=== PATIENT | female | born 1940 | race Caucasian/White ===

== ENCOUNTER → 2017-03-27 | Day surgery (SDC) | payer BC ==
[2017-03-20 08:39] VITALS: Ht 162.6 cm; Wt 58.2 kg
[~2017-03-27] VITALS: Ht 162.6 cm; Wt 58.2 kg
[~2017-03-27] MED LIST: ASPEC81 PO; ATEN50TA8 PO; CALC600T9 PO; FLNIN/ NAE; LEVO200T PO; LEVO25TA PO; LIDOCAINE HCL 2% 2 ML VIAL (20MG/ML) ONE; MULT-506 PO; PHENYLEPHRINE HCL INJ 10 MG/ML VIAL ONE; POTA20TA16 PO; PRLSR20 PO; PROPOFOL IV EMULSION 10 MG/ML 20 ML VIAL IV ONE; SODIUM CHLORIDE 0.9% 500ML 500 ML IV ONE
--- NOTE | 2017-03-27 08:35 | Endo History and Physical ---
History & Physical Date of Service: Mar 27, 2017. Chief Complaint: Referring Physician: History of Present Illness 77 yo presenting for evaluation of weight loss and GERD. Possible distant family with colorectal cancer-grandfather Normal EGD 2014 Normal Colonoscopy 2013 Past Medical History Atrial Fibrillation, Osteoporosis, Arthritis, Reflux, Hypertension, Thyroid Disease Past Surgical History Hx Cardiac Surgery: No Hx Internal Defibrillator: No Hx Pacemaker: No Hx Abdominal Surgery: Yes (ABD CYSTECTOMY --> KNICKED BOWELS AND HAD COLON RESECTION WITH OSTOMY) Hx of Implantable Prosthesis: No Hx Post-Op Nausea and Vomiting: Yes Hx Cancer Surgery: No Hx Thoracic Surgery: No Hx Orthopedic: No Hx Urinary Tract Surgery: No Family History None Social History Smoking Status: Never Smoker Hx Substance Use: No Hx Alcohol Use: No Allergies Coded Allergies: Alendronate (Verified Allergy, Unknown, RASH, 03/20/17) Current Medications Reported Home Medications Medications Dose Route/Sig Max Daily Dose Days Date Category Dose Instructions Multivitamin (Multivitamins) Tab 1 Tab PO QAM 03/20/17 Reported Calcium + D (Calcium Carbonate-Vitamin D) 1 Tab Tab 1 Tab PO BID 03/20/17 Reported Prilosec (Omeprazole) 20 Mg Capcr 20 Mg PO QAM 03/20/17 Reported Synthroid (Levothyroxine Sodium) 25 Mcg Tab 12.5 Mcg PO QAM 09/08/14 Reported Take 200 mcg pill with 1/2 of a 25 mcg pill for total dose of 212.5 mcg. Synthroid (Levothyroxine Sodium) 200 Mcg Tab 200 Mcg PO QAM 09/08/14 Reported Take 200 mcg pill with 1/2 of a 25 mcg pill for total dose of 212.5 mcg. Fluticasone Propionate 120 Sprays/6000 Mcg Inha 1 [place] PETER QAM 09/08/14 Reported Ecotrin Or Generic * (Aspirin) 81 Mg Ectab 81 Mg PO 3-4XWK 04/15/07 Reported Klor-Con (Potassium Chloride) 20 Meq Tabcr 20 Meq PO QPM 04/15/07 Reported Tenormin (Atenolol) 50 Mg Tab 50 Mg PO QAM 04/15/07 Reported Vital Signs Weight (Kilograms): 58.18 Height (Feet): 5 Height (Inches): 4 Physical Exam General Appearance: WD/WN, no apparent distress Respiratory/Chest: Respiratory effort: no dyspnea Auscultation: breath sounds normal, CTA except as noted, no wheezing Cardiovascular: Apical Impulse: not displaced Heart Auscultation: RRR, normal S1, normal S2 Abdomen: Inspection & Palpation: soft, non-distended, no tenderness, guarding & rebound Assessment and Plan 77 yo presenting for EGD/Colonoscopy for weight loss and GERD
[2017-03-27 08:50] VITALS: TEMP 36.6
--- NOTE | 2017-03-27 10:41 | GI REPORT ---
Procedure Date: 03/27/2017 10:06 AM Procedure: Colonoscopy Indications: Weight loss Medicines: General Anesthesia Complications: No immediate complications. Estimated blood loss: None. Estimated Blood Loss: Estimated blood loss: none. Procedure: Pre-Anesthesia Assessment: - Pre-Anesthesia Assessment: - Prior to the procedure, a History and Physical was performed, and patient medications, allergies and sensitivities were reviewed. The patient's tolerance of previous anesthesia was reviewed. Please see [email or web address] for complete details. - The risks and benefits of the procedure and the sedation options and risks were discussed with the patient. All questions were answered and informed consent was obtained. - Patient identification and proposed procedure were verified prior to the procedure by the physician and the nurse. The procedure was verified in the pre-procedure area in the procedure room. After obtaining informed consent, the endoscope was passed carefully and meticuously under direct vision and only advanced when the lumen was clearly identified, C02 insuflation was utilized throughout the entirity of the procedure. Throughout the procedure, the patient's blood pressure, pulse, and oxygen saturations were monitored continuously. After I obtained informed consent, the scope was passed under direct vision. Throughout the procedure, the patient's blood pressure, pulse, and oxygen saturations were monitored continuously. The scope was introduced through the anus and advanced to the terminal ileum, with identification of the appendiceal orifice and IC valve. The colonoscopy was performed without difficulty. The patient tolerated the procedure well. The quality of the bowel preparation was fair. Findings: There was evidence of a prior end-to-side colo-colonic anastomosis in the sigmoid colon. This was patent. A 4 mm polyp was found in the transverse colon. The polyp was sessile. The polyp was removed with a cold snare. Resection and retrieval were complete. Multiple small-mouthed diverticula were found in the sigmoid colon and in the descending colon. Internal hemorrhoids were found during retroflexion. The exam was otherwise without abnormality on direct and retroflexion views. Impression: - Patent end-to-side colo-colonic anastomosis. - One 4 mm polyp in the transverse colon, removed with a cold snare. Resected and retrieved. - Diverticulosis in the sigmoid colon and in the descending colon. - Internal hemorrhoids. - The examination was otherwise normal on direct and retroflexion views. Recommendation: - Discharge patient to home (with escort). - Repeat colonoscopy in 5 years for surveillance. - Return to referring physician as previously scheduled. Quincy Pagan MD 03/27/2017 10:40:16 AM This report has been signed electronically. Note Initiated On: 03/27/2017 10:06 AM I attest to the content of the Intraoperative Record and orders documented therein, exceptions below
--- NOTE | 2017-03-27 10:41 | GI REPORT ---
Procedure Date: 03/27/2017 9:47 AM Procedure: Upper GI endoscopy Indications: Weight loss Medicines: General Anesthesia Complications: No immediate complications. Estimated blood loss: None. Estimated Blood Loss: Estimated blood loss: none. Procedure: Pre-Anesthesia Assessment: - Pre-Anesthesia Assessment: - Prior to the procedure, a History and Physical was performed, and patient medications, allergies and sensitivities were reviewed. The patient's tolerance of previous anesthesia was reviewed. Please see [email or web address] for complete details. - The risks and benefits of the procedure and the sedation options and risks were discussed with the patient. All questions were answered and informed consent was obtained. - Patient identification and proposed procedure were verified prior to the procedure by the physician and the nurse. The procedure was verified in the pre-procedure area in the procedure room. After obtaining informed consent, the endoscope was passed carefully and meticuously under direct vision and only advanced when the lumen was clearly identified, C02 insuflation was utilized throughout the entirity of the procedure. Throughout the procedure, the patient's blood pressure, pulse, and oxygen saturations were monitored continuously. After obtaining informed consent, the endoscope was passed under direct vision. Throughout the procedure, the patient's blood pressure, pulse, and oxygen saturations were monitored continuously. The scope was introduced through the mouth, and advanced to the second part of duodenum. The upper GI endoscopy was accomplished without difficulty. The patient tolerated the procedure well. Findings: A hiatus hernia was present. The entire examined stomach was normal. Biopsies were taken with a cold forceps for histology. The examined duodenum was normal. Biopsies for histology were taken with a cold forceps for evaluation of celiac disease. Impression: - Hiatus hernia. - Normal stomach. Biopsied. - Normal examined duodenum. Biopsied. Recommendation: - Await pathology results. - Discharge patient to home (with escort). - Return to referring physician as previously scheduled. Quincy Pagan MD 03/27/2017 10:41:10 AM This report has been signed electronically. Note Initiated On: 03/27/2017 9:47 AM I attest to the content of the Intraoperative Record and orders documented therein, exceptions below
--- NOTE | 2017-03-27 10:44 | Discharge Instructions ---
Endoscopy Patient Instructions Date / Procedure(s) Performed Mar 27, 2017. Colonoscopy, EGD Allergy Information Coded Allergies: Alendronate (Verified Allergy, Unknown, RASH, 03/20/17) Discharge Date / Findings Mar 27, 2017. Hiatal Hernia Normal stomach-biopsied Normal Small intestine-biopsied Colonoscopy revealed one polyp completely removed and benign appearing Internal hemorrhoids Diverticuli Provider Instructions Activity Restrictions - No exercising or heavy lifting for 24 hours. - Do not drink alcohol the day of the procedure. - Do not drive a car or operate machinery until the day after the procedure. - Do not make any important decisions or sign important papers in 24 hours after the procedure. Following Day: - Return to full activity which may include returning to work/school. Diet Start your diet with liquids and light foods (jello, soup, juice, toast). Then eat your usual diet if not nauseated. Treatment For Common After Affects For mild abdominal pain, bloating, or excessive gas: - Rest - Eat lightly - Lie on right side Follow-Up Information Follow-up with Dr. Bijan Barakat III as scheduled Anesthesia Information What You Should Know You have had a procedure that required some medicine to reduce anxiety and discomfort. This treatment is called moderate sedation. After receiving the treatment, you may be sleepy, but you will be able to breathe on your own. The effects of the treatment may last for several hours. Follow these instructions along with Activity/Diet recommendations noted above: * Do NOT do anything where dizziness or clumsiness would be dangerous. * Rest quietly at home today, then you can be up and about tomorrow. * Have a responsible person stay with you the rest of today. * You may have had an I.V. today. If so, you may take the dressing off later today. Recommendations Call your doctor if: * Trouble breathing * Continuous vomiting for more than 24 hours * Temperature above 101 degrees * Severe abdominal pain or bloating * Pain not relieved by pain medicine ordered * There is increased drainage or redness from any incision * A large amount of rectal bleeding greater than 2-3 tablespoons. (If you had a polyp/s removed or have hemorrhoids, a small amount of blood - from the rectum is to be expected.) * You have any unanswered questions or concerns. IN THE EVENT OF A SERIOUS EMERGENCY, GO TO THE NEAREST EMERGENCY ROOM Your discharge instructions were prepared by provider Quincy Pagan. Patient Instructions Signature Page Tia Khoury Patient (or Guardian) Signature/Date: I have read and understand the instructions given to me by my caregivers. Caregiver/RN/Doctor Signature/Date: The above-named patient and/or guardian has received patient instructions on this date. + Original Patient Signature Page (only) stays with chart. Please make copy for patient.
[2017-03-27 11:02] VITALS: BP 140/44; PULSE 56; O2SAT 99
--- NOTE | 2017-03-27 11:11 | Anesthesiology Progress Note ---
Anesthesia Post Op Note Date & Time Mar 27, 2017 at 11:11 Vital Signs Pain Intensity: 0 Vital Signs Past 12 Hours Date Time Temp Pulse Resp B/P (MAP) Pulse Ox O2 Delivery O2 Flow Rate FiO2 03/27/17 11:02 56 20 140/44 (76) 99 Room Air 03/27/17 10:48 54 20 96/81 (86) 98 Room Air 03/27/17 10:33 62 20 137/66 (89) 100 Room Air 03/27/17 08:50 36.6 45 16 132/55 (80) 100 Room Air Notes Mental Status: alert / awake / arousable, participated in evaluation Pt Amnestic to Procedure: Yes Nausea / Vomiting: adequately controlled Pain: adequately controlled Airway Patency, RR, SpO2: stable & adequate BP & HR: stable & adequate Hydration State: stable & adequate Anesthetic Complications: no major complications apparent
== END | disposition home or self-care (01) ==
LOC: C.GI 08:20
PROVIDERS: ATTEND Internal Medicine
DX: R63.4 Abnormal weight loss (principal); K21.9 Gastro-esophageal reflux disease without esophagitis; D12.3 Benign neoplasm of transverse colon; K64.8 Other hemorrhoids; K57.30 Diverticulosis of large intestine without perforation or abscess without bleeding; K44.9 Diaphragmatic hernia without obstruction or gangrene; I48.91 Unspecified atrial fibrillation; M81.0 Age-related osteoporosis without current pathological fracture; M19.90 Unspecified osteoarthritis, unspecified site; I10 Essential (primary) hypertension; Z90.49 Acquired absence of other specified parts of digestive tract; Z98.41 Cataract extraction status, right eye; Z98.42 Cataract extraction status, left eye; E03.9 Hypothyroidism, unspecified

== ENCOUNTER → 2017-04-05 | Outpatient (CLI) | payer BC ==
[~2017-04-05] MED LIST changes: +GADAVIST IV PRN; -LIDOCAINE HCL 2% 2 ML VIAL (20MG/ML) ONE; -PHENYLEPHRINE HCL INJ 10 MG/ML VIAL ONE; -PROPOFOL IV EMULSION 10 MG/ML 20 ML VIAL IV ONE; -SODIUM CHLORIDE 0.9% 500ML 500 ML IV ONE
--- NOTE | 2017-04-05 09:56 | DIAGNOSTIC IMAGING REPORT ---
ABDOMINAL MRI WITH AND WITHOUT INTRAVENOUS CONTRAST HISTORY: Follow-up hepatic lesion. IPMN TECHNIQUE: Multiplanar multisequence MRI of the abdomen was performed both before and after the intravenous administration of contrast to evaluate the pancreas. COMPARISON STUDY: Abdominal MRI 03/23/2016. FINDINGS: The gallbladder is surgically absent. Mild intrahepatic bile duct dilatation remains unchanged. Normal caliber common bile duct. The main pancreatic duct is also normal in caliber. Stable 8 mm cyst within the left hepatic lobe. There are few subcentimeter T2 hyperintense nonenhancing lesions within the kidneys consistent with cysts. No retroperitoneal lymphadenopathy. The spleen and adrenal glands are unremarkable. No enhancing pancreatic masses. There is again noted an 8 x 4 mm T2 hyperintense nonenhancing lesion at the uncinate process of the pancreas as described on the prior study. This appears to connect to the pancreatic duct. The slight size discrepancy is likely due to better visualization on this study and underestimation on the prior examination. This remains unchanged. S-shaped scoliosis of the thoracolumbar spine. IMPRESSION: 1. Overall, no significant change compared to the prior study 2. Hepatic and renal cysts are again noted. 3. There is again noted an 8 x 4 mm T2 hyperintense nonenhancing lesion at the uncinate process of the pancreas as described on the prior study. This appears to connect to the pancreatic duct. 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 4. The gallbladder is surgically absent. Mild intrahepatic bile duct dilatation remains unchanged. Electronically signed by: Colin Garcia M.D. 04/05/2017 9:55 AM Dictated Date/Time: 04/05/2017 9:46 AM
== END | disposition home or self-care (01) ==
LOC: C.MRI 08:08
PROVIDERS: ATTEND Nurse Practitioner Family
DX: D49.0 Neoplasm of unspecified behavior of digestive system (principal)

== ENCOUNTER → 2017-04-24 | Outpatient (CLI) | payer BC ==
[~2017-04-24] MED LIST changes: -GADAVIST IV PRN
--- NOTE | 2017-04-24 15:59 | DIAGNOSTIC IMAGING REPORT ---
CT SCAN OF THE ABDOMEN AND PELVIS WITH IV CONTRAST CLINICAL HISTORY: Unintentional weight loss. COMPARISON STUDY: Abdominal CT dated 01/21/2015. Abdominal MRI dated 04/05/2017. TECHNIQUE: Following the IV administration of 93 cc of Optiray 320, CT scan of the abdomen and pelvis is performed from the lung bases to the proximal femora. Images are reviewed in the axial, sagittal, and coronal planes. IV contrast was administered without complication. Automated dose control exposure was utilized. A dose lowering technique was utilized adhering to the principles of ALARA. CT DOSE: 236.23 mGy.cm FINDINGS: Lung bases: The heart is mildly enlarged and without pericardial effusion. The lung bases are clear. Liver: The contrast-enhanced liver is normal in size, contour, and attenuation. There is no intrahepatic biliary ductal dilatation. The hepatic veins and portal veins are patent. A 1.3 cm cyst is noted in the left lobe. Gallbladder: Surgically absent. Spleen: Normal in size and attenuation. Pancreas: Moderately atrophic and grossly unremarkable. The cystic lesion in the uncinate process seen by MRI was not well visualized on today's CT scan. Adrenal glands: Unremarkable. Kidneys: The contrast enhanced kidneys demonstrate mild cortical atrophy and are without hydronephrosis. The kidneys enhance symmetrically. Abdominal vasculature: The abdominal aorta is normal in course and caliber noting moderate atherosclerotic calcification. Bowel: The small bowel and colon are normal in course and caliber. The appendix is not identified and reported surgically absent. Peritoneum: There is no intraperitoneal free air or abdominal ascites. There is evidence of previous ventral hernia repair. Lymphadenopathy: None. Pelvic viscera: The bladder is normal as visualized. The endometrium appears thickened for age, measuring up to 12 mm. No adnexal lesion is seen. Skeletal structures: The skeletal structures are osteopenic. There is moderate lumbosacral spondylosis and scoliosis. No lytic or blastic lesions are seen. IMPRESSION: 1. There are no acute infectious or inflammatory findings in the abdomen or pelvis. 2. The endometrium appears thickened for age measure up to 12 mm. This is not well assessed by CT but warrants further workup. Follow-up with a pelvic ultrasound and with the patient's community development director is recommended. 3. Additional findings as above. Electronically signed by: Be Maza M.D. 04/24/2017 3:21 PM Dictated Date/Time: 04/24/2017 3:15 PM
== END | disposition home or self-care (01) ==
LOC: C.CTS 13:05
PROVIDERS: ATTEND Nurse Practitioner Family
DX: R63.4 Abnormal weight loss (principal)

== ENCOUNTER → 2017-05-02 | Outpatient (CLI) | payer BC ==
--- NOTE | 2017-05-02 12:09 | DIAGNOSTIC IMAGING REPORT ---
EXAMINATION: PELVIC ULTRASOUND (endovaginal and abdominal scanning) CLINICAL HISTORY: ABN FINDINGS ON IMAGING TEST ENDOMETRIAL THICKENING COMPARISON STUDY: CT scan dated 04/24/2017 FINDINGS: The study was limited from a technical standpoint. The patient was unable to tolerate optimal endovaginal scanning. The uterus measured 6.8 x 2.9 x 3.7 cm. The endometrial stripe measured 8 mm and appears slightly heterogeneous. A contain a few bright echoes possibly representing calcifications.. Neither ovary was visualized There was no evidence of pathologic free pelvic fluid. IMPRESSION: 1. Technically limited examination 2. Nonvisualization the ovaries 3. 8 mm slightly heterogeneous endometrial stripe Electronically signed by: Artur Hanley M.D. 05/02/2017 12:08 PM Dictated Date/Time: 05/02/2017 12:04 PM
== END | disposition home or self-care (01) ==
LOC: C.ULTR 11:18
PROVIDERS: ATTEND Nurse Practitioner Family
DX: R93.8 Abnormal findings on diagnostic imaging of other specified body structures (principal)

== ENCOUNTER → 2017-12-03 | Outpatient (CLI) | payer BC ==
[~2017-12-03] MED LIST changes: +POTA-639 PO; -POTA20TA16 PO
--- NOTE | 2017-12-03 15:21 | ECHOCARDIOGRAM REPORT ---
*NOTICE TO RECEIVING [employer] This information is strictly Confidential and protected under [place] law. [place] law prohibits you from making any further disclosure of this information unless further disclosure is expressly permitted by the written consent of the person to whom it pertains or is authorized by law. A general authorization for the release of medical or other information is not sufficient for this purpose. Hospital accepts no responsibility if the information is made available to any other person, INCLUDING THE PATIENT. Interpretation Summary * Name: KASEY DACOSTA Study Date: 12/03/2017 02:08 PM BP: 115/60 mmHg * Patient Location: [facility] HR: 65 * : 1940 (M/d/yyyy) Gender: Female Height: 64 in * Age: 77 yrs Ethnicity: [place] Weight: 125 lb * Ordering Physician: Bijan Barakat * Referring Physician: Bijan Barakat * Performed By: Veronica Finch RDCS * * Reason For Study: AFIB * BSA: 1.6 m2 * The study was technically adequate. * -- Conclusions -- * Sinus rhythm with frequent ectopy was present during the echocardiogram. * The left ventricular wall motion is normal. * Left ventricular ejection Fraction = 55-60%. * The right ventricle is normal size. * The right ventricular systolic function is normal as assessed by tricuspid annular plane systolic excursion (TAPSE) (normal >1.5 cm). * The right atrium is moderately dilated. * Mild aortic regurgitation. * There is mild mitral regurgitation. * There is moderate tricuspid regurgitation. * Mild pulmonary hypertension is present. The calculated pulmonary artery systolic pressure is 43 mmHg assuming a right atrial pressure of 3 mmHg. Procedure Details * A complete two-dimensional transthoracic echocardiogram was performed (2D, M-mode, Doppler and color flow Doppler). Left Ventricle * The left ventricle is normal in size. * There is normal left ventricular wall thickness. * Left ventricular systolic function is normal. * Ejection Fraction = 55-60%. * The left ventricular wall motion is normal. Right Ventricle * The right ventricle is normal size. * The right ventricular systolic function is normal as assessed by tricuspid annular plane systolic excursion (TAPSE) (normal >1.5 cm). Atria * The left atrial size is normal. * The right atrium is moderately dilated. * There is no evidence of atrial septal defect, but resolution does not allow assessment for a patent foramen ovale. Mitral Valve * Mitral valve leaflets are mildly thickened. * There is no mitral valve stenosis. * There is mild mitral regurgitation. Tricuspid Valve * The tricuspid valve is normal. * There is no tricuspid stenosis. * There is moderate tricuspid regurgitation. * Mild pulmonary hypertension is present. The calculated pulmonary artery systolic pressure is 43 mmHg assuming a right atrial pressure of 3 mmHg. Aortic Valve * The aortic valve is trileaflet. * Aortic stenosis is absent. * Mild aortic regurgitation. Pulmonic Valve * The pulmonary valve is inadequately visualized, but the Doppler data is adequate for interpretation. * Pulmonic stenosis is absent. * Mild pulmonic valvular regurgitation. Great Vessels * The aortic root and proximal ascending aorta are normal sized. Pericardium/Pleural * There is no pericardial effusion. Great Vessels * Normal inferior vena cava diameter and respiratory variation suggests normal central venous pressure. Left Ventricular Diastolic Function * Grade I diastolic dysfunction, (abnormal relaxation pattern). MMode 2D Measurements and Calculations IVSd 0.87 cm IVSs 1.2 cm LVIDd 5.1 cm LVIDs 3.4 cm LVPWd 0.98 cm LVPWs 1.5 cm IVS/LVPW 0.88 FS 32.1 % EDV(Teich) 122.1 ml ESV(Teich) 48.8 ml EF(Teich) 60.0 % EDV(cubed) 130.3 ml ESV(cubed) 40.7 ml EF(cubed) 68.7 % % IVS thick 39.8 % % LVPW thick 55.4 % LV mass(C)d 168.2 grams LV mass(C)dI 105.0 grams/m\S\2 LV mass(C)s 163.5 grams LV mass(C)sI 102.1 grams/m\S\2 SV(Teich) 73.2 ml SI(Teich) 45.7 ml/m\S\2 SV(cubed) 89.5 ml SI(cubed) 55.9 ml/m\S\2 Ao root diam 3.1 cm Ao root area 7.5 cm\S\2 LA dimension 3.3 cm LA/Ao 1.1 LVAd ap4 26.0 cm\S\2 LVLd ap4 8.0 cm EDV(MOD-sp4) 75.5 ml EDV(sp4-el) 72.0 ml LVAs ap4 16.4 cm\S\2 LVLs ap4 6.8 cm ESV(MOD-sp4) 37.6 ml ESV(sp4-el) 33.3 ml EF(MOD-sp4) 50.2 % EF(sp4-el) 53.8 % LVAd ap2 25.8 cm\S\2 LVLd ap2 7.8 cm EDV(MOD-sp2) 74.2 ml EDV(sp2-el) 72.1 ml LVAs ap2 16.2 cm\S\2 LVLs ap2 7.3 cm ESV(MOD-sp2) 33.4 ml ESV(sp2-el) 30.5 ml EF(MOD-sp2) 55.0 % EF(sp2-el) 57.8 % LVLd %diff -1.76 % EDV(MOD-bp) 76.1 ml LVLs %diff 6.2 % ESV(MOD-bp) 35.1 ml EF(MOD-bp) 53.8 % SV(MOD-sp4) 37.9 ml SI(MOD-sp4) 23.7 ml/m\S\2 SV(MOD-sp2) 40.8 ml SI(MOD-sp2) 25.5 ml/m\S\2 SV(MOD-bp) 40.9 ml SI(MOD-bp) 25.6 ml/m\S\2 SV(sp4-el) 38.7 ml SI(sp4-el) 24.2 ml/m\S\2 SV(sp2-el) 41.6 ml SI(sp2-el) 26.0 ml/m\S\2 Doppler Measurements and Calculations Ao V2 max 162.9 cm/sec Ao max PG 10.6 mmHg Ao max PG (full) 8.2 mmHg LV V1 max PG 2.4 mmHg LV V1 max 78.1 cm/sec TR max vanda 307.2 cm/sec
== END | disposition home or self-care (01) ==
LOC: C.CPL 13:33
PROVIDERS: ATTEND Family Medicine
DX: I48.0 Paroxysmal atrial fibrillation (principal); R00.0 Tachycardia, unspecified

== ENCOUNTER 2020-02-12 10:26 | Inpatient (IN) ==
[2020-02-12] MEDS ORDERED: ASPIRIN CHEW 324 MG PO STA (10:58)
[2020-02-12] MEDS ORDERED: SODIUM CHLORIDE 0.9% 1000ML 1,000 ML IV SCH (11:00)
--- NOTE | 2020-02-12 11:04 | Emergency Department Note ---
History of Present Illness General Chief complaint: Cardiac Assessment Stated complaint: CARDIAC ASSESSMENT, REF'D BY HUSSAIN Time Seen by Provider: 02/12/20 10:46 Source: patient, family ( who is at the bedside) and old records reviewed (I have reviewed the records and EKG that they sent over from Dr. Barakat's office) Mode of arrival: ambulatory Limitations: no limitations History of Present Illness Maximum Pain Intensity: 5 This patient is sent over from Dr. Barakat's office after she presented there with multiple complaints and was found to have rapid A. fib. She has been having a lot of pain in her shoulders and back lately she had some rashes on her torso and was diagnosed recent with Lyme. Apparently the testing just came back today for the prelim. She is not yet on antibiotics. She also has been having some intermittent chest pain and woke up this morning with this 5 or 6 out of 10 dull ache centrally. Denies shortness of breath or cough. She has been feeling hot and cold for couple weeks. She was seen here couple weeks ago and tested negative for COVID. She is had no fall or trauma. No focal numbness or weakness. She does have a history of paroxysmal A. fib and she does not seem to know how long she was in at this time. She denies that she is on any blood thinners. She did not take her atenolol this morning Home Medications Home Medications Medication Instructions Recorded Confirmed Type atenolol 25 mg PO QAM 01/24/20 02/12/20 History fluticasone propionate [Flonase 2 spray INTRANASAL HS 01/24/20 02/12/20 History Allergy Relief] ketoconazole 1 applic TOPICAL HS 01/24/20 02/12/20 History ketoconazole [Nizoral] 1 applic TOPICAL [id number] PRN 01/24/20 02/12/20 History levothyroxine 200 mcg PO SUTUWEFRSA 01/24/20 02/12/20 History multivitamin 1 tab PO QDL 01/24/20 02/12/20 History omeprazole 20 mg PO DAILY PRN 01/24/20 02/12/20 History potassium chloride 20 meq PO QAM 01/24/20 02/12/20 History Nutrilite Calcium Tablet 3 tab PO QAM 02/12/20 02/12/20 History ascorbic acid (vitamin C) [Vitamin 1,000 mg PO QAM 02/12/20 02/12/20 History C] cholecalciferol (vitamin D3) 25 mcg PO QAM 02/12/20 02/12/20 History [Vitamin D3] vitamin B complex 1 tab PO QAM 02/12/20 02/12/20 History Allergies Allergy/AdvReac Type Severity Reaction Status Date / Time alendronate sodium Allergy Unknown RASH Verified 02/12/20 11:29 Past Med/Surg History Medical History (Updated 02/12/20 @ 17:22 by Finn Regalado MD) GERD (gastroesophageal reflux disease) (Chronic) History of small bowel obstruction (Inactive) History of ventral hernia repair (Inactive) Hypertension (Chronic) Hypothyroidism (Chronic) PAF (paroxysmal atrial fibrillation) Small bowel obstruction (Inactive) Surgical History (Updated 02/12/20 @ 13:24 by Prachi Rowland PA-C) Status post appendectomy (Inactive) Status post cholecystectomy (Inactive) Status post hernia repair (Inactive) Status post partial colectomy (Inactive) "bowel perforation" Status post partial thyroidectomy (Inactive) Status post tonsillectomy (Inactive) Family History (Updated 02/12/20 @ 13:25 by Prachi Rowland PA-C) Father CHF (congestive heart failure) Mother CHF (congestive heart failure) Denies family history of Stroke Social History (Updated 02/12/20 @ 13:25 by Prachi Rowland PA-C) Preferred Language: [place]er Communication Ability: Effective Satellite Dish Repairer Required: No Beliefs That Will Affect Care: None marital status: Current Living Situation: Spouse Other Information That Helps Us Care for You: No Feels Safe at Home: Yes Safety Concerns: Feels Safe At This Time Smoking Status: Never smoker Hx Alcohol Use: No Hx Substance Use: No Review of Systems A total of 10 systems reviewed and were otherwise negative Physical Exam Vital Signs Vital Signs - 24 hr 02/12/20 10:33 02/12/20 10:58 02/12/20 11:10 Temperature 36.6 C Temperature Source Oral Pulse Rate 176 H 133 H Pulse Rate from SpO2 Sensor 127 H Respiratory Rate 20 22 Respiratory Effort / Characteristics Non-Labored Respiratory Depth Normal Blood Pressure 128/93 Blood Pressure Mean 98 Pulse Oximetry 97 99 Oxygen Delivery Method Room Air Room Air Room Air Sepsis Recent Fever Within 48 Hours No Sepsis Action Taken by Nursing No Action Required 02/12/20 11:15 02/12/20 11:31 02/12/20 11:47 Temperature Temperature Source Pulse Rate 99 H 103 H 111 H Pulse Rate from SpO2 Sensor 107 H 98 H 107 H Respiratory Rate 21 21 25 H Respiratory Effort / Characteristics Respiratory Depth Blood Pressure 139/76 124/73 138/64 Blood Pressure Mean 93 96 80 Pulse Oximetry 98 97 99 Oxygen Delivery Method Room Air Room Air Room Air Sepsis Recent Fever Within 48 Hours Sepsis Action Taken by Nursing 02/12/20 12:00 02/12/20 12:15 Temperature Temperature Source Pulse Rate 113 H 118 H Pulse Rate from SpO2 Sensor 109 H 117 H Respiratory Rate 24 23 Respiratory Effort / Characteristics Respiratory Depth Blood Pressure 143/85 H 130/93 Blood Pressure Mean 111 104 Pulse Oximetry 98 97 Oxygen Delivery Method Room Air Room Air Sepsis Recent Fever Within 48 Hours Sepsis Action Taken by Nursing General: Well developed well nourished not ill-appearing older female who appears in no acute distress, breathing comfortably on room air. Normal speech HEENT: Normal cephalic atraumatic. Pupils are equal round and reactive to light. Extraocular movements are intact. Oropharynx is pink with moist mucous membranes. No swelling of the mouth lips or tongue. Neck: Supple with a midline trachea. No meningeal signs or stiffness, no JVD or bruits. No Stridor. Chest: Clear to auscultation bilaterally. No wheezes or rhonchi. No increased work of breathing. Heart: Irregularly irregular with a rapid A. fib seen on the monitor in the rates averaging about 130. Without murmurs or gallops. Abdomen: Soft nontender, nondistended without rebound guarding or rigidity. Extremities: No cyanosis clubbing or edema. No calf tenderness or assymetry Spine/Back. Non tender to palpation. No CVA tenderness Skin: Good turgor. She does have some large circular type rashes on her back Neurologic exam: Cranial nerves two through 12 are intact. Motor and sensation are intact and symmetrical throughout. Course Administered Medications Heparin Sodium/Dextrose (Heparin Sodium/Dextrose) 25,000 units in 500 mls @ 20 mls/hr IV .Q24H [facility]; Protocol Stop: 03/13/20 12:44 Last Admin: 02/12/20 13:02 Dose: 1,000 units/hr, 20 mls/hr Documented by: [id number] Cosigned by: [id number] Discontinued Medications Aspirin (Aspirin) 324 mg PO NOW STA Stop: 02/12/20 10:59 Last Admin: 02/12/20 11:08 Dose: 324 mg Documented by: [id number] Aspirin (Ecotrin Ectab) 81 mg PO NOW STA Stop: 02/12/20 15:38 Last Admin: 02/12/20 16:10 Dose: 81 mg Documented by: [id number] Doxycycline Hyclate (Vibramycin) 100 mg PO NOW STA Stop: 02/12/20 15:38 Last Admin: 02/12/20 16:10 Dose: 100 mg Documented by: [id number] Heparin Sodium (Porcine) (Heparin Sodium (Porcine)) Confirm Administered Dose 5, 000 units .ROUTE .STK-MED ONE Stop: 02/12/20 12:58 Last Admin: 02/12/20 13:02 Dose: 4,000 units Documented by: [id number] Cosigned by: [id number] Sodium Chloride (Nss 1000ml) 1,000 mls @ 999 mls/hr IV .Q1H1M FILIBERTO Stop: 02/12/20 12:00 Last Infusion: 02/12/20 12:13 Dose: 0 mls/hr Documented by: [id number] Admin: 02/12/20 11:08 Dose: 999 mls/hr Documented by: [id number] Metoprolol Tartrate (Lopressor) 3 mg IV NOW STA Stop: 02/12/20 11:06 Last Admin: 02/12/20 11:12 Dose: 3 mg Documented by: [id number] Metoprolol Tartrate (Lopressor) 12.5 mg PO ONE STA Stop: 02/12/20 12:34 Last Admin: 02/12/20 12:53 Dose: 12.5 mg Documented by: [id number] Medical Decision Making Differential Diagnosis Rapid A. fib, electrolyte or metabolic abnormality, thyroid disease, Lyme disease, sepsis, dehydration, acute coronary syndrome Medical Records Attestation: I reviewed the patient's medical records. Home Medications Current Medication List: was personally reviewed by me Laboratory Data Attestation: I reviewed the patient's lab results. Result diagrams: 02/12/20 10:45 02/12/20 10:45 Lab Results 02/12/20 02/12/20 02/12/20 Range/Units 10:45 10:45 10:45 WBC 11.79 H (4.8-10.8) K/uL RBC 4.29 (4.2-5.4) M/uL Hgb 13.2 (12.0-16.0) g/dL Hct 39.8 (37-47) % MCV 92.8 (80-100) fL MCH 30.8 (25-34) pg MCHC 33.2 (32-36) g/dL RDW Std Deviation 44.8 (36.4-46.3) fL RDW Coeff of Carter 13.2 (11.5-14.5) % Plt Count 241 (130-400) K/uL MPV 9.5 (7.4-10.4) fL Immature Gran % (Auto) 0.2 % Neut % (Auto) 82.4 % Lymph % (Auto) 10.6 % Maury % (Auto) 6.3 % Eos % (Auto) 0.2 % Baso % (Auto) 0.3 % Neut # (Auto) 9.73 H (1.4-6.5) K/uL Lymph # (Auto) 1.25 (1.2-3.4) K/uL Maury # (Auto) 0.74 H (0.11-0.59) K/uL Eos # (Auto) 0.02 (0-0.5) K/uL Baso # (Auto) 0.03 (0-0.2) K/uL Immature Gran # (Auto) 0.02 (0.00-0.02) K/uL PT 11.0 (9.0-12.0) Seconds INR 1.0 (0.9-1.1) APTT 29.3 (21.0-31.0) Seconds PTT Ratio 1.1 D-Dimer (0-500) ug/L FEU Sodium 137 (136-145) mmol/L Potassium 4.3 (3.5-5.1) mmol/L Chloride 103 (98-107) mmol/L Carbon Dioxide 28 (21-32) mmol/L Anion Gap 6.0 (3-11) BUN 14 (7-18) mg/dl Creatinine 0.82 (0.6-1.2) mg/dl Est Cr Clr Drug Dosing 47.3 ml/min Est GFR ( Amer) 78.3 Est GFR (Non-Af Amer) 67.6 BUN/Creatinine Ratio 17.4 (10-20) Glucose 112 H (70-99) mg/dl Calcium 8.7 (8.5-10.1) mg/dl Magnesium (1.8-2.4) mg/dl Total Bilirubin 0.8 (0.2-1) mg/dl AST 21 (15-37) U/L ALT 26 (12-78) U/L Alkaline Phosphatase 77 (45-117) U/L Troponin I < 0.015 (0-0.045) ng/ml Total Protein 7.3 (6.4-8.2) gm/dl Albumin 3.1 L (3.4-5.0) gm/dl Globulin 4.2 H (2.5-4.0) gm/dl Albumin/Globulin Ratio 0.7 L (0.9-2) Lipase 136 (73-393) U/L TSH (0.300-4.500) uIu/ml 02/12/20 02/12/20 02/12/20 Range/Units 10:45 10:45 10:45 WBC (4.8-10.8) K/uL RBC (4.2-5.4) M/uL Hgb (12.0-16.0) g/dL Hct (37-47) % MCV (80-100) fL MCH (25-34) pg MCHC (32-36) g/dL RDW Std Deviation (36.4-46.3) fL RDW Coeff of Carter (11.5-14.5) % Plt Count (130-400) K/uL MPV (7.4-10.4) fL Immature Gran % (Auto) % Neut % (Auto) % Lymph % (Auto) % Maury % (Auto) % Eos % (Auto) % Baso % (Auto) % Neut # (Auto) (1.4-6.5) K/uL Lymph # (Auto) (1.2-3.4) K/uL Maury # (Auto) (0.11-0.59) K/uL Eos # (Auto) (0-0.5) K/uL Baso # (Auto) (0-0.2) K/uL Immature Gran # (Auto) (0.00-0.02) K/uL PT (9.0-12.0) Seconds INR (0.9-1.1) APTT (21.0-31.0) Seconds PTT Ratio D-Dimer 2950 H* (0-500) ug/L FEU Sodium (136-145) mmol/L Potassium (3.5-5.1) mmol/L Chloride (98-107) mmol/L Carbon Dioxide (21-32) mmol/L Anion Gap (3-11) BUN (7-18) mg/dl Creatinine (0.6-1.2) mg/dl Est Cr Clr Drug Dosing ml/min Est GFR ( Amer) Est GFR (Non-Af Amer) BUN/Creatinine Ratio (10-20) Glucose (70-99) mg/dl Calcium (8.5-10.1) mg/dl Magnesium 2.1 Cancelled (1.8-2.4) mg/dl Total Bilirubin (0.2-1) mg/dl AST (15-37) U/L ALT (12-78) U/L Alkaline Phosphatase (45-117) U/L Troponin I (0-0.045) ng/ml Total Protein (6.4-8.2) gm/dl Albumin (3.4-5.0) gm/dl Globulin (2.5-4.0) gm/dl Albumin/Globulin Ratio (0.9-2) Lipase (73-393) U/L TSH 2.120 (0.300-4.500) uIu/ml Imaging Data My Impression: Chest xray: no acute infilrate, failure, or pneumothorax Radiologist's Impression: XR chest 1V portable HISTORY: Atypical Chest Pain COMPARISON: Chest 01/24/2020. FINDINGS: The heart remains mildly enlarged. No pleural effusions. No pneumothorax. The lungs are clear. No evidence for pulmonary edema. Mild S- shaped scoliosis. IMPRESSION: Stable mild cardiomegaly. ECG Data Attestation: I personally reviewed and interpreted this ECG as follows: Indication: + chest pain Rate (beats per minute): 132 Rhythm: + atrial fibrillation (Rapid A. fib with a rapid ventricular spots and rate of 132) ECG Wayne: + Right axis deviation ECG ST segments: + Nonspecific ST abnormalities ECG Findings: + Poor R wave progression; no PACs Comparison ECG Date: from Blood Pressure Blood Pressure Findings: Elevated blood pressure Blood Pressure Disposition: further management by hospitalist MDM Narrative Patient comes in as scribed above she is a chest pain and rapid A. fib she is also had possible Lyme disease recently. IV axis tablet she was hydrated 1 L normal saline bolus. Her rate was initially moderately rapid. I did did review her chart and then gave her Lopressor 3 mg IV. Multiple blood testing was obtained and EKG and chest x-ray were obtained. EKG does not show any ischemic changes. She was given aspirin chewable. Additionally once she did well with Lopressor and her heart rate was in the low 100s. Her troponin is negative. She has no acute electrolyte or metabolic abnormalities. Chest x-ray does not suggest congestive heart failure, pneumonia, or pneumothorax. Given her rapid A. fib, I do think she needs to be admitted/observedand it sounds like she may also have Lyme disease which may need to be further treated as well. Have consulted with the [facility] hospitalist to see her ER for these measures. Continuous cardiac monitoring: Order was placed for continuous cardiac mo nitoring this was done because the patient had a rapid heart rate and chest pain. On my initial evaluation she was noted to be in rapid A. fib with a rate of 130 Impression & Plan Atrial fibrillation with rapid ventricular response, Lyme disease, Chest pain, SOB (shortness of breath) Discharge Plan Visit Data *Final* Discharge Date/Time: 02/12/20 15:07 Chief Complaint: Cardiac Assessment Stated Complaint: CARDIAC ASSESSMENT, REF'D BY HUSSAIN ED Provider: Finn Regalado Discharge Problem: Atrial fibrillation with rapid ventricular response, Lyme disease, Chest pain, SOB (shortness of breath) Patient Disposition: Admitted As Inpatient Discharge Instructions Interventions: ED Discharge Assessment Last Done: 02/12/20 15:07 Discharge Problem: Chest pain Qualifiers: Chest pain type: precordial pain Qualified Code(s): R07.2 - Precordial pain
[2020-02-12] MEDS ORDERED: METOPROLOL TARTRATE 1 MG/ML VIAL IV STA ×2 (11:05→20:15)
--- NOTE | 2020-02-12 11:26 | XRay Report ---
XR chest 1V portable HISTORY: Atypical Chest Pain COMPARISON: Chest 01/24/2020. FINDINGS: The heart remains mildly enlarged. No pleural effusions. No pneumothorax. The lungs are meghna ar. No evidence for pulmonary edema. Mild S-shaped scoliosis. IMPRESSION: Stable mild cardiomegaly. ACT 112: Negative or not required by law. Electronically signed by: Colin Garcia M.D. 02/12/2020 11:24 AM
[2020-02-12 11:32] LABS: Basophils # (auto) 0.03 K/uL (0-0.2); Basophils % (auto) 0.3 %; Eosinophils # (auto) 0.02 K/uL (0-0.5); Eosinophils % (auto) 0.2 %; Hematocrit (blood only) 39.8 % (37-47); Hemoglobin 13.2 g/dL (12.0-16.0); Immature Granulocytes # (auto) 0.02 K/uL (0.00-0.02); Immature Granulocytes % (auto) 0.2 %; Lymphocytes # (auto) 1.25 K/uL (1.2-3.4); Lymphocytes % (auto) 10.6 %; Mean Corpuscular Hemoglobin 30.8 pg (25-34); Mean Corpuscular Hgb Conc 33.2 g/dL (32-36); Mean Corpuscular Volume 92.8 fL (80-100); Mean Platelet Volume 9.5 fL (7.4-10.4); Monocytes # (auto) 0.74 K/uL (0.11-0.59); Monocytes % (auto) 6.3 %; Neutrophils # (auto) 9.73 K/uL (1.4-6.5); Neutrophils % (auto) 82.4 %; Platelet Count 241 K/uL (130-400); RDW Coefficient of Variation 13.2 % (11.5-14.5); RDW Standard Deviation 44.8 fL (36.4-46.3); Red Blood Count 4.29 M/uL (4.2-5.4); White Blood Count 11.79 K/uL (4.8-10.8)
[2020-02-12 11:43] LABS: Alanine Aminotransferase 26 U/L (12-78); Albumin Level 3.1 gm/dl (3.4-5.0); Aspartate Aminotransferase 21 U/L (15-37); BUN Creatinine Ratio 17.4 (10-20); Blood Urea Nitrogen 14 mg/dl (7-18); Calcium 8.7 mg/dl (8.5-10.1); Carbon Dioxide 28 mmol/L (21-32); Chloride 103 mmol/L (98-107); Creatinine Clr Calc Pharmacy 47.3 ml/min; Est GFR (African American) 78.3; Est GFR (Non-African American) 67.6; Glucose 112 mg/dl (70-99); Lipase 136 U/L (73-393); Potassium 4.3 mmol/L (3.5-5.1); Sodium 137 mmol/L (136-145)
[2020-02-12 11:44] LABS: Partial Thromboplastin Ratio 1.1; Partial Thromboplastin Time 29.3 Seconds (21.0-31.0)
[2020-02-12 11:49] LABS: Albumin Globulin Ratio 0.7 (0.9-2); Alkaline Phosphatase 77 U/L (45-117); Bilirubin,Total 0.8 mg/dl (0.2-1); Globulin 4.2 gm/dl (2.5-4.0); Total Protein 7.3 gm/dl (6.4-8.2); Troponin I < 0.015 ng/ml (0-0.045)
[2020-02-12] MEDS ORDERED: METOPROLOL TARTRATE 25 MG TAB PO STA (12:33)
[2020-02-12] MEDS ORDERED: HEPARIN SOD 5,000 UNIT/0.5 ML VIAL ONE (12:57)
--- NOTE | 2020-02-12 12:59 | History & Physical Report ---
Date of Service February 12, 2020 Assessment & Plan (1) Atrial fibrillation with RVR: (2) Elevated d-dimer: This is an 79-year-old female who has significant past medical history of PAF, hypothyroidism, hyperlipidemia who is a patient of Dr. Barakat and presents to ED at his referral secondary to A. fib with RVR. In ED patient was in atrial fibrillation with RVR. I do not have an ecg to review at this time. Lab work revealed WBC 11.79, H&H 13.2 and 39.8, platelet 2.1, BMP generally unremarkable except for mild hyperglycemia 112 TSH 2.2, troponin WNL. D-dimer ordered and elevated at 2950. Chest x-ray revealed stable mild cardiomegaly, mild scoliosis In ED she received Lopressor 2.5 mg IV which did improve rates into the low 100s. admit to PCU initiate lopressor 12.5mg bid - titrate as able hold home atenolol Start IV heparin -discussed risk vs benefits - no hx of bleeding [id number] - 3 consult cardiology obtain echocardiogram TSH, Lytes all WNL given elevated dimer obtain CTA chest, b/l dopplers to rule out PE/DVT as cause of afib (3) Lyme disease: pt with reports of ill feeling x 2 weeks, arthralgias, reported "bulls eye" rash that has been waxing and waning tested outpt 02/10 Initial Lyme IgG/IgM antibody greater than 12.4 which resulted in a positive test, Western blot is pending Given above symptoms treat empirically with doxycycline 100 mg twice daily for 14 days Review western blot results in [facility] when resulted (4) Hypothyroidism: Continue levothyroxine TSH WNL (5) GERD (gastroesophageal reflux disease): PPI prn (6) DVT prophylaxis: IV heparin started Disposition: admit to PCU Follow up: PCP Dr. Barakat upon discharge Pt was seen and examined in collaboration with Dr. Huff, please see addendum Starting 02/13/2020 pt will be under the care of Dr. De La Torre History of Present Illness Chief Complaint: Referred by PCP secondary to atrial fibrillation with RVR. Primary Care Provider: Bijan Barakat MD This is an 79-year-old female who has significant past medical history of PAF, hypothyroidism, hyperlipidemia who is a patient of Dr. Barakat and presents to ED at his referral secondary to A. fib with RVR. She was seen and evaluated in the office today for an acute visit due to continued ill feeling when she was noted to be in A. fib with RVR. She was referred to ED for further evaluation. Of significance patient has been ill feeling for the past 2 weeks. Symptoms initially started as Flulike symptoms including pharyngitis. She was seen in ED at that time and was tested for COVID which was negative. She continued to feel poorly and was seen and evaluated by PCP. It was felt she just had a viral illness. She then developed circular like red rashes that were, "bull's-eye in appearance." She looked them up online and thought it may have been Lyme's.She denies any known tick bite. She underwent Lyme serology yesterday. She further complains of fatigue, arthralgias including shoulder pain, "my whole spine hurts," and myalgias. She denies any fever. Further elicits that she was awoken this morning with substernal chest pressure, 5/10, nonradiating, not associated with diaphoresis, nausea or shortness of breath. Has never had similar symptoms in the past. This has since resolved. Of significance she does have history of PAF back in 2005 when she was hospitalized with significant abdominal surgery. She had been treated with atenolol and has not been anticoagulated. Currently she denies any fever, chills, sweats, lightheadedness, dizziness, syncope, shortness of breath, orthopnea, PND, cough, hemoptysis,, vomiting, abdominal pain, change in bowel or urinary habits. Her appetite is overall been decreased. She has not taken any of her meds this morning. In ED patient was in atrial fibrillation with RVR. I do not have an ecg to review at this time. Lab work revealed WBC 11.79, H&H 13.2 and 39.8, platelet 2.1, BMP generally unremarkable except for mild hyperglycemia 112 TSH 2.2, troponin WNL. D-dimer ordered and elevated at 2950. Chest x-ray revealed stable mild cardiomegaly, mild scoliosis In ED she received Lopressor 2.5 mg IV which did improve rates into the low 100s. Allergies Allergy/AdvReac Type Severity Reaction Status Date / Time alendronate sodium Allergy Unknown RASH Verified 02/12/20 11:29 Home Medications Home Medications Medication Instructions Recorded Confirmed Type atenolol 25 mg PO QAM 01/24/20 02/12/20 History fluticasone propionate [Flonase 2 spray INTRANASAL HS 01/24/20 02/12/20 History Allergy Relief] ketoconazole 1 applic TOPICAL HS 01/24/20 02/12/20 History ketoconazole [Nizoral] 1 applic TOPICAL [id number] PRN 01/24/20 02/12/20 History levothyroxine 200 mcg PO SUTUWEFRSA 01/24/20 02/12/20 History multivitamin 1 tab PO QDL 01/24/20 02/12/20 History omeprazole 20 mg PO DAILY PRN 01/24/20 02/12/20 History potassium chloride 20 meq PO QAM 01/24/20 02/12/20 History Nutrilite Calcium Tablet 3 tab PO QAM 02/12/20 02/12/20 History ascorbic acid (vitamin C) [Vitamin 1,000 mg PO QAM 02/12/20 02/12/20 History C] cholecalciferol (vitamin D3) 25 mcg PO QAM 02/12/20 02/12/20 History [Vitamin D3] vitamin B complex 1 tab PO QAM 02/12/20 02/12/20 History Past Med/Surg History Medical History GERD (gastroesophageal reflux disease) (Chronic) History of small bowel obstruction (Inactive) History of ventral hernia repair (Inactive) Hypertension (Chronic) Hypothyroidism (Chronic) PAF (paroxysmal atrial fibrillation) Small bowel obstruction (Inactive) Surgical History Status post appendectomy (Inactive) Status post cholecystectomy (Inactive) Status post hernia repair (Inactive) Status post partial colectomy (Inactive) "bowel perforation" Status post partial thyroidectomy (Inactive) Status post tonsillectomy (Inactive) Family History Father CHF (congestive heart failure) Mother CHF (congestive heart failure) Denies family history of Stroke Social History Preferred Language: Frisian Communication Ability: Effective Cigarette Book Maker Required: No Beliefs That Will Affect Care: None marital status: Current Living Situation: Spouse Other Information That Helps Us Care for You: No Feels Safe at Home: Yes Safety Concerns: Feels Safe At This Time Smoking Status: Never smoker Hx Alcohol Use: No Hx Substance Use: No Review of Systems Review of Systems: All systems reviewed & are unremarkable except as noted in HPI & below Nothing additional to add. Physical Exam Physical Exam: Constitutional: WD/WN, appears younger than stated age, female, vitals as above, NAD, sitting up in bed, pleasant, conversing easily Head: Normocephalic, Atraumatic Eyes: PERRL, conjunctivae normal, anicteric sclerae ENMT: external ear and nose normal, oropharynx normal Neck: trachea midline, no thyromegaly normal visual inspection Respiratory: normal respiratory effort, lungs clear to auscultation, no wheeze, rales, rhonchi. Normal insp/exp effort, no accessory muscle use Cardiovascular: Irregularly irregular, no murmur, no edema Vessels: no JVD or carotid bruit Chest: normal inspection of chest Abdomen: normal bowel sounds, soft, nontender, no hepatosplenomegaly Musculoskeletal: + Thoracic scoliosis, no cyanosis or clubbing, extremities motor strength 5/5 Skin: Right antecubital faint bull's-eye rash noted, warm and dry normal turgor Neurologic: PERRL, EOMI, accommodation nl, no face palsy, no dysarthria CN's II-XI intact bilaterally and moves all extremities Psychiatric: A+Ox3, euthymic affect Lymphatic: no cervical or axillary lymphadenopathy : deferred Results & Data Results & Data ([facility]) Vital Signs (Past 12 Hours) Vital Signs Temp Pulse Resp BP Pulse Ox 02/12/20 12:15 118 H 23 130/93 97 02/12/20 12:00 113 H 24 143/85 H 98 02/12/20 11:47 111 H 25 H 138/64 99 02/12/20 11:31 103 H 21 124/73 97 02/12/20 11:15 99 H 21 139/76 98 02/12/20 11:10 133 H 22 128/93 99 02/12/20 10:33 36.6 C 176 H 20 97 Laboratory Results Short CBC 02/12/20 Range/Units 10:45 WBC 11.79 H (4.8-10.8) K/uL Hgb 13.2 (12.0-16.0) g/dL Hct 39.8 (37-47) % Plt Count 241 (130-400) K/uL BMP 02/12/20 10:45 Sodium 137 Potassium 4.3 Chloride 103 Carbon Dioxide 28 BUN 14 Creatinine 0.82 Glucose 112 H Calcium 8.7 Cardiac Enzymes 02/12/20 Range/Units 10:45 Troponin I < 0.015 (0-0.045) ng/ml Liver Function 02/12/20 Range/Units 10:45 Total Bilirubin 0.8 (0.2-1) mg/dl AST 21 (15-37) U/L ALT 26 (12-78) U/L Alkaline Phosphatase 77 (45-117) U/L Albumin 3.1 L (3.4-5.0) gm/dl Diagnostic Findings CXR: IMPRESSION: Stable mild cardiomegaly. Medications Administered Heparin Sodium/Dextrose (Heparin Sodium/Dextrose) 25,000 units in 500 mls @ 20 mls/hr IV .Q24H [facility]; Protocol Stop: 03/13/20 12:44 Last Admin: 02/12/20 13:02 Dose: 1,000 units/hr, 20 mls/hr Documented by: [id number] Cosigned by: [id number] Discontinued Medications Aspirin (Aspirin) 324 mg PO NOW STA Stop: 02/12/20 10:59 Last Admin: 02/12/20 11:08 Dose: 324 mg Documented by: [id number] Heparin Sodium (Porcine) (Heparin Sodium (Porcine)) Confirm Administered Dose 5,000 units .ROUTE .STK-MED ONE Stop: 02/12/20 12:58 Last Admin: 02/12/20 13:02 Dose: 4,000 units Documented by: [id number] Cosigned by: [id number] Sodium Chloride (Nss 1000ml) 1,000 mls @ 999 mls/hr IV .Q1H1M FILIBERTO Stop: 02/12/20 12:00 Last Infusion: 02/12/20 12:13 Dose: 0 mls/hr Documented by: [id number] Admin: 02/12/20 11:08 Dose: 999 mls/hr Documented by: [id number] Metoprolol Tartrate (Lopressor) 3 mg IV NOW STA Stop: 02/12/20 11:06 Last Admin: 02/12/20 11:12 Dose: 3 mg Documented by: [id number] Metoprolol Tartrate (Lopressor) 12.5 mg PO ONE STA Stop: 02/12/20 12:34 Last Admin: 02/12/20 12:53 Dose: 12.5 mg Documented by: ECG Rhythm: atrial fibrillation Code Status & VTE Plan Code Status Full Code VTE Prophylaxis Plan VTE Prophylaxis will be ordered: Yes Supervising Physician Co-Signing Physician Notes ATTENDING ADDENDUM : pt seen and examined care co-ordinated with Prachi SANCHEZ 79 yo F admitted with rapid afib RVR had non specific symptoms for past several days -increased weakness , lathergy SOB , SARGENT lyme ab positive with recent tick bite /rash present in extremities Afib RVR : paroxysmal , was not any meds as last episode was 7 yrs back briefly post procedure cont rate control with beta david started on lopressor 12.5 mg BID admit to PCU unknown duration of afib , ordered IV heparin wt based protocol cardiology eval ordered for resting ECHO Lyme disease : started on PO Doxycycline please refer to further documentaion by Prachi Cheney PA-C for discussion of other chronic issue Sherrie Huff MD
[2020-02-12] MEDS: HEPARIN SODIUM/DEXTROSE 25,000 UNITS/500 ML BAG IV SCH (13:02)
[2020-02-12 13:08] LABS: Thyroid Stimulating Hormone 2.12 uIu/ml (0.300-4.500)
[2020-02-12 13:10] LABS: Magnesium 2.1 mg/dl (1.8-2.4)
[2020-02-12 13:18] LABS: D Dimer 2950 ug/L FEU (0-500)
[2020-02-12] MEDS ORDERED: OPTIRAY 320 125ml IV PRN (14:00)
--- NOTE | 2020-02-12 14:12 | CT Scan Report ---
CT ANGIOGRAM OF THE CHEST CLINICAL HISTORY: Atypical chest pain and shortness of breath. Possible pulmonary embolism. COMPARISON STUDY: Chest x-ray dated 02/12/2020, abdominal CT scan performed August 2018 TECHNIQUE: Following the IV administration of 119 mL of Optiray-320, CT angiogram of the thorax was p erformed from the thoracic inlet to the lung bases utilizing the pulmonary embolus protocol. Images a re reviewed in the axial, sagittal, and coronal planes. IV contrast was administered without complica tion. MIP imaging was performed. A dose lowering technique was utilized adhering to the principles o f ALARA. CT DOSE: 355.54 mGy.cm FINDINGS: There is a stable 14 mm left lobe hepatic hypodensity, likely representing a cyst. There are no pathologically enlarged axillary, mediastinal, or hilar lymph nodes. There is no evidence of thoracic aortic aneurysm. There are no pulmonary artery filling defects to indicate acute pulmonary embolism. There is trace pleural fluid. There is no evidence of focal pulmonary consolidation. There is mild respiratory motion artifact. The heart is enlarged. There is a solid subpleural 5 mm right middle lobe pulmonary nodule. In a low-risk patient, no furthe r follow-up is indicated. In a high-risk patient, a 12 month follow-up is optional. IMPRESSION: 1. No evidence of acute pulmonary embolism 2. No evidence of focal pulmonary consolidation 3. Subpleural 5 mm right middle lobe pulmonary nodule. Please refer to below summary of Fleischner criteria recommendations for follow-up of incidental CT n odules (Mayra Reese, Guidelines for management of small pulmonary nodules detected on CT scans: A sta tement from the Fleischner Society, Radiology 237: [phone].) SOLID NODULES Solitary nodule size: <6 mm * low risk patients: no follow-up needed * high risk patients: optional CT at 12 months Solitary nodule size: 6-8 mm * low risk patients: follow-up at 6-12 months, then consider further follow-up at 18-24 months * high risk patients: initial follow-up CT at 6-12 months and then at 18-24 months if no change Solitary nodule size: >8 mm * either low or high risk patients - consider follow-up CT at 3 months, and/or CT-PET, and/or biopsy Multiple nodules size: <6 mm * low risk patients: no routine follow-up * high risk patients: optional CT at 12 months Multiple nodules size: 6-8 mm * low risk patients: follow-up at 3-6 months, then consider further follow-up at 18-24 months * high risk patients: follow-up at 3-6 months, then at 18-24 months if no change Multiple nodules size: >8 mm * low risk patients: follow-up at 3-6 months, then consider further follow-up at 18-24 months * high risk patients: follow-up at 3-6 months, then at 18-24 months if no change Note: newly detected indeterminate nodule in persons 35 years of age or older. * low risk patients: minimal or absent history of smoking and/or other known risk factors * high risk patients: history of smoking or of other known risk factors (e.g. first degree relative with lung cancer, or exposure to asbestos, radon, uranium) * if a nodule up to 8 mm is partly solid or is ground glass further follow-up is required after 24 m onths to exclude possible slow growing adenocarcinoma (FANY) SUBSOLID NODULES Solitary pure ground-glass nodule * nodule size <6 mm - no CT follow-up required * nodule size >=6 mm - follow-up CT at 6-12 months, then every 2 years until 5 years Solitary part-solid nodule * nodule size <6 mm - no CT follow-up required * nodule size >=6 mm - follow-up CT at 3-6 months. If unchanged, and solid component remains <6 mm, then annual follow-up for 5 years Multiple subsolid nodules * nodule size <6 mm - follow-up CT at 3-6 months, consider further follow-up at 2 and 4 years if sta ble * nodule size >=6 mm - follow-up CT at 3-6 months, subsequent management based on the most suspiciou s nodule(s) ACT 112: Negative or not required by law. Electronically signed by: Artur Hanley M.D. 02/12/2020 2:10 PM
[2020-02-12] MEDS ORDERED: HEPARIN SODIUM/DEXTROSE 25,000 UNITS/500 ML BAG IV SCH (15:31)
[2020-02-12] MEDS ORDERED: MAGNESIUM HYDROXIDE SUSP 30 ML UDC PO PRN (15:31)
[2020-02-12] MEDS ORDERED: ALUMINUM/MAGNESIUM SUSP 30 ML UDC PO PRN (15:31)
[2020-02-12] MEDS ORDERED: POLYETHYLENE (MIRALAX) 17 GM PACK PO PRN (15:31)
[2020-02-12] MEDS ORDERED: ONDANSETRON INJ 2 MG/ML 2 ML VIAL IV PRN (15:31)
[2020-02-12] MEDS ORDERED: ASPIRIN 81 MG ECTAB PO STA (15:37)
[2020-02-12] MEDS ORDERED: DOXYCYCLINE HYCLATE 100 MG CAP PO STA (15:37)
[2020-02-12] MEDS ORDERED: PANTOprazole 40 MG TAB PO PRN (15:41)
[2020-02-12] MEDS ORDERED: OXYCODONE/ACETAMINOPHEN 5mg/325mg TAB PO PRN (17:39)
--- NOTE | 2020-02-12 17:39 | Ultrasound Report ---
US venous doppler LE BI HISTORY: Pain. Edema. elevated dimer COMPARISON STUDY: None. FINDINGS: There is normal compressibility, flow, and augmentation within the bilateral lower extremit y deep venous systems. IMPRESSION: No DVT within the right or left lower extremity. ACT 112: Negative or not required by law. The above report was generated using voice recognition software. It may contain grammatical, syntax or spelling errors. Electronically signed by: Kristopher Mariscal M.D. 02/12/2020 5:38 PM
[2020-02-12] MEDS: ACETAMINOPHEN 325 MG TAB PO PRN ×2 (17:41→19:41)
[2020-02-12 19:43] LABS: Partial Thromboplastin Ratio 2.6
[2020-02-12] MEDS: NITROGLYCERIN SL 0.4 MG/TAB TAB SL PRN ×2 (19:46→19:56)
[2020-02-12 19:59] LABS: Partial Thromboplastin Time 73.1 Seconds (21.0-31.0)
[2020-02-12] MEDS ORDERED: METOPROLOL TARTRATE 1 MG/ML VIAL IV PRN (20:16)
[2020-02-12] MEDS: METOPROLOL TARTRATE 25 MG TAB PO SCH (21:03)
[2020-02-12] MEDS: FLUTICASONE PROPIONATE NA SPR 16 GM BTL NAE SCH (21:04)
[2020-02-12] MEDS: KETOCONAZOLE 2% CR 15 GM TUBE EXT SCH (21:05)
[2020-02-12] MEDS: DOXYCYCLINE HYCLATE 100 MG CAP PO SCH (21:06)
[2020-02-12 21:07] LABS: BUN Creatinine Ratio 16.3 (10-20); Calcium 7.9 mg/dl (8.5-10.1); Creatinine Clr Calc Pharmacy 52.4 ml/min; Est GFR (African American) 88.7; Est GFR (Non-African American) 76.5; Potassium 3.8 mmol/L (3.5-5.1)
--- NOTE | 2020-02-12 21:52 | Electrocardiogram Report ---
Test Reason : Blood Pressure : / mmHG Vent. Rate : 132 BPM Atrial Rate : 300 BPM P-R Int : 000 ms QRS Dur : 094 ms QT Int : 280 ms P-R-T Axes : 000 097 -19 degrees QTc Int : 414 ms Atrial fibrillation with rapid ventricular response Rightward axis Septal infarct (cited on or before 24-JAN-2020) Nonspecific ST abnormality Abnormal ECG When compared with ECG of 24-JAN-2020 15:49, Atrial fibrillation has replaced Sinus rhythm Vent. rate has increased BY 56 BPM Confirmed by Olman Elise ([id number]) on 02/12/2020 9:52:04 PM Referred By: Bijan Barakat Confirmed By:Olman Elise
[2020-02-13 02:17] LABS: Basophils # (auto) 0.03 K/uL (0-0.2); Basophils % (auto) 0.2 %; Eosinophils # (auto) 0.06 K/uL (0-0.5); Eosinophils % (auto) 0.5 %; Hematocrit (blood only) 37.3 % (37-47); Hemoglobin 12.5 g/dL (12.0-16.0); Immature Granulocytes # (auto) 0.04 K/uL (0.00-0.02); Immature Granulocytes % (auto) 0.3 %; Lymphocytes # (auto) 0.93 K/uL (1.2-3.4); Lymphocytes % (auto) 7.1 %; Mean Corpuscular Hemoglobin 30.6 pg (25-34); Mean Corpuscular Hgb Conc 33.5 g/dL (32-36); Mean Corpuscular Volume 91.4 fL (80-100); Mean Platelet Volume 9.1 fL (7.4-10.4); Monocytes % (auto) 4.6 %; Neutrophils # (auto) 11.41 K/uL (1.4-6.5); Neutrophils % (auto) 87.3 %; Platelet Count 214 K/uL (130-400); RDW Standard Deviation 43.6 fL (36.4-46.3); Red Blood Count 4.08 M/uL (4.2-5.4); White Blood Count 13.07 K/uL (4.8-10.8)
[2020-02-13 02:35] LABS: BUN Creatinine Ratio 15.9 (10-20); Calcium 8.1 mg/dl (8.5-10.1); Creatinine Clr Calc Pharmacy 53.1 ml/min; Est GFR (African American) 90.2; Est GFR (Non-African American) 77.8; Potassium 3.8 mmol/L (3.5-5.1)
[2020-02-13 02:44] LABS: Partial Thromboplastin Ratio 2.6
[2020-02-13 03:09] LABS: Partial Thromboplastin Time 71.7 Seconds (21.0-31.0)
[2020-02-13] MEDS: LEVOTHYROXINE SODIUM 200 MCG TABLET PO SCH (05:45)
[2020-02-13] MEDS: METOPROLOL TARTRATE 25 MG TAB PO SCH (07:58)
[2020-02-13] MEDS: VITAMIN B COMPLEX TAB PO SCH (07:58)
[2020-02-13] MEDS: CHOLECALCIFEROL 1,000 UNITS 25 MCG TAB PO SCH (07:59)
[2020-02-13] MEDS: DOXYCYCLINE HYCLATE 100 MG CAP PO SCH ×2 (07:59→20:24)
[2020-02-13] MEDS: ASCORBIC ACID 500 MG TAB PO SCH (07:59)
[2020-02-13] MEDS: POTASSIUM CHLORIDE 20 MEQ TABCR PO SCH (07:59)
[2020-02-13] MEDS ORDERED: CALCIUM PO SCH (09:00)
[2020-02-13 09:23] LABS: Partial Thromboplastin Ratio 2.1
[2020-02-13 10:04] LABS: Partial Thromboplastin Time 57.2 Seconds (21.0-31.0)
[2020-02-13] MEDS: MULTIVITAMIN TAB PO SCH (10:38)
[2020-02-13] MEDS ORDERED: dilTIAZem HCl 5 MG/ML 5 ML VIAL IV STA (11:13)
[2020-02-13] MEDS ORDERED: STAT IV Infusion **Titration per Protocol STA (11:13)
--- NOTE | 2020-02-13 11:22 | Hospitalist Progress Note ---
Date of Service February 13, 2020 Assessment & Plan (1) Atrial fibrillation with RVR: (2) Elevated d-dimer: From Admit team-This is an 79-year-old female who has significant past medical history of PAF, hypothyroidism, hyperlipidemia who is a patient of Dr. Barakat and presents to ED at his referral secondary to A. fib with RVR. In ED patient was in atrial fibrillation with RVR. I do not have an ecg to review at this time. Lab work revealed WBC 11.79, H&H 13.2 and 39.8, platelet 2.1, BMP generally unremarkable except for mild hyperglycemia 112 TSH 2.2, troponin WNL. D-dimer ordered and elevated at 2950. Chest x-ray revealed stable mild cardiomegaly, mild scoliosis In ED she received Lopressor 2.5 mg IV which did improve rates into the low 100s. Start Cardizem gtt and bolus Start IV heparin -discussed risk vs benefits - no hx of bleeding [id number] - 3 consult cardiology obtain echocardiogram TSH, Lytes all WNL given elevated dimer obtain CTA chest, b/l dopplers both negative (3) Lyme disease: pt with reports of ill feeling x 2 weeks, arthralgias, reported "bulls eye" rash that has been waxing and waning tested outpt 02/10 Initial Lyme IgG/IgM antibody greater than 12.4 which resulted in a positive test, Western blot is pending Given above symptoms treat empirically with doxycycline 100 mg twice daily for 14 days Review western blot results in [facility] when resulted (4) Hypothyroidism: Continue levothyroxine TSH WNL (5) GERD (gastroesophageal reflux disease): PPI prn (6) DVT prophylaxis: IV heparin started, IV Cardizem Started Disposition: PCU Follow up: PCP Dr. Barakat upon discharge ROS-No Headache, No Visual Changes, No Nausea, No Vomiting, No Fever, No Chills, No Neck Pain or Stiffness, No Chest Pain, No Palpitations, No SOB, No SARGENT, No Cough, No Sputum, No Wheezing, No Abdominal Pain, No Diarrhea, No Hematemesis, No Hemoptysis, No Unexpected Weight Loss, No Flank pain, No Melena, No Hematochezia, No Frequency, No Urgency, No Burning, No Hematuria, No Rashes, No Diaphoresis. Appetite is Normal Physical Exam Gen-AAO x 3, NAD, Afebrile Head-NCAT, EOMI, PERRLA, Anicteric Sclera, No Posterior Pharyngeal Erythema Neck-Supple, No JVD, No Thyromegaly, No Masses, No LAD, No Bruits Lungs-Clear to Auscultation Bilaterally, No Rales, No Rhonchi, No Wheezing, No Crepitus Chest-Irreg/Irreg No S4, +S1, +S2, No S3, No Murmurs, No Rubs, No Gallops, +Ectopy Abdomen-Soft, Bowel Sounds Present, Non Tender, Non Distended, No Hepatomegaly, No Splenomegaly, No Palpable Masses, No Rebound, No Rigidity, No Guarding Musculoskeletal-Full Range of Motion Bilaterally, No CVAT Extremities-No Cyanosis, No Clubbing, No Edema Nuero-Cranial Nerves II-XII grossly intact, Motor WNL, DTRs WNL, Strength WNL, Non Focal Psych-Normal Mood Admission and Anticipated Discharge Date Admission Date: February 12, 2020 Anticipated date of discharge: 02/15/20 Results & Data Results & Data ([facility]) Vital Signs (Past 12 Hours) Vital Signs Temp Pulse Pulse Resp BP BP Pulse Ox 02/13/20 09:55 120 H 117/67 02/13/20 09:51 120 H 18 117/67 97 02/13/20 07:28 120 H 02/13/20 07:21 36.7 C 117 H 18 114/78 96 02/13/20 04:00 37.1 C 109 H 18 136/79 96 02/12/20 23:42 36.8 C 110 H 16 129/83 96
[2020-02-13] MEDS ORDERED: dilTIAZem HCL 125 MG in DEXTROSE 5% 100 ML IV SCH (11:30)
[2020-02-13] MEDS: HEPARIN SODIUM/DEXTROSE 25,000 UNITS/500 ML BAG IV SCH (11:57)
--- NOTE | 2020-02-13 12:01 | Cardiology Consultation ---
Date of Consultation February 13, 2020 Assessment & Plan (1) Atrial fibrillation with rapid ventricular response: (2) Lyme disease: It is likely that if this patient does have Lyme's disease that this was the initiating event to cause her to go into atrial fibrillation. Unfortunately, we do not know how long she has been in this arrhythmia. She started feeling poorly over a week ago. I would recommend continued anticoagulation. She is currently on heparin but if there is no planned proc edures or surgery I believe she can be switched to Eliquis 2.5 mg twice daily instead of continuing the heparin. Her echocardiogram today indicates a dilated cardiomyopathy with the estimated left ventricular ejection fraction of around 25%. She also has moderate mitral regurgitation and severe tricuspid regurgitation. 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 She will require guideline directed medications. I started her on lisinopril today and gave her a little diuretic. Unfortunately, her heart rate did not improve with IV beta david and a diltiazem drip was begun. I would continue for now. If she does not convert spontaneously, then she will have to undergo a possible BONNIE cardioversion. History of Present Illness Attending Physician: ePdrito De La Torre, History of Present Illness This is an 79-year-old female who was last seen at our cardiology clinic in 2006 with a history of paroxysmal atrial fibrillation. She states that that year she was very sick and developed atrial arrhythmias. Dr. Venkat Isaac saw her for short time and then released her. She is actually had good health until recently she has not been feeling well with some constitutional symptoms, sore throat and mild shortness of breath. She also had a a rash which she describes as a bull's-eye that may be indicative of Lyme's disease. Her screening titers for Lyme's are positive. She was seen by her primary care physician who noted that she was in atrial fibrillation with RVR and she was sent to the emergency department. She was completely unaware that she was in this arrhythmia. She denies chest pain. She has had no orthopnea or lower extremity edema. No dizziness or lightheadedness. She has no prior history of ischemic heart disease. Allergies Allergy/AdvReac Type Severity Reaction Status Date / Time alendronate sodium Allergy Unknown RASH Verified 02/12/20 11:29 Home Medications Home Medications Medication Instructions Recorded Confirmed Type atenolol 25 mg PO QAM 01/24/20 02/12/20 History fluticasone propionate [Flonase 2 spray INTRANASAL HS 01/24/20 02/12/20 History Allergy Relief] ketoconazole 1 applic TOPICAL HS 01/24/20 02/12/20 History ketoconazole [Nizoral] 1 applic TOPICAL [id number] PRN 01/24/20 02/12/20 History levothyroxine 200 mcg PO SUTUWEFRSA 01/24/20 02/12/20 History multivitamin 1 tab PO QDL 01/24/20 02/12/20 History omeprazole 20 mg PO DAILY PRN 01/24/20 02/12/20 History potassium chloride 20 meq PO QAM 01/24/20 02/12/20 History Nutrilite Calcium Tablet 3 tab PO QAM 02/12/20 02/12/20 History ascorbic acid (vitamin C) [Vitamin 1,000 mg PO QAM 02/12/20 02/12/20 History C] cholecalciferol (vitamin D3) 25 mcg PO QAM 02/12/20 02/12/20 History [Vitamin D3] vitamin B complex 1 tab PO QAM 02/12/20 02/12/20 History Patient History Medical History GERD (gastroesophageal reflux disease) (Chronic) History of small bowel obstruction (Inactive) History of ventral hernia repair (Inactive) Hypertension (Chronic) Hypothyroidism (Chronic) PAF (paroxysmal atrial fibrillation) Small bowel obstruction (Inactive) Surgical History Status post appendectomy (Inactive) Status post cholecystectomy (Inactive) Status post hernia repair (Inactive) Status post partial colectomy (Inactive) "bowel perforation" Status post partial thyroidectomy (Inactive) Status post tonsillectomy (Inactive) Family History Father CHF (congestive heart failure) Mother CHF (congestive heart failure) Denies family history of Stroke Social History Preferred Language: Sinhala Communication Ability: Effective 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 Physical Exam Physical Exam: General: no acute distress and stated age Head: normocephalic, no masses, lesions, tenderness or abnormalities Eyes: conjunctiva are pink and non-injected, sclera clear Neck: supple, no adenopathy, no bruits, normal jugular venous pulse, no hepatojugular reflux Chest: normal shape and normal respiratory effort Lungs: clear to auscultation and percussion Cardiac Exam: -Irregular rate & rhythm, no murmurs gallops or rubs - normal S1, normal S2 Pulses: 2(+) throughout Abdomen: abdomen soft, non-tender, no abnormal masses and no hepatosplenomegaly Musculoskeletal: no gait disturbance, no joint inflammation, no deforming arthritis Extremities: no edema and no cyanosis Neuro: grossly normal exam Results & Data ([facility]) Vital Signs (Past 12 Hours) Vital Signs Temp Pulse Pulse Resp BP BP Pulse Ox 02/13/20 11:51 36.6 C 109 H 20 124/63 96 02/13/20 09:55 120 H 117/67 02/13/20 09:51 120 H 18 117/67 97 02/13/20 07:28 120 H 02/13/20 07:21 36.7 C 117 H 18 114/78 96 02/13/20 04:00 37.1 C 109 H 18 136/79 96 Laboratory Results Laboratory Results - last 24 hr 02/12/20 02/12/20 02/12/20 10:45 10:45 10:45 WBC RBC Hgb Hct MCV MCH MCHC RDW Std Deviation RDW Coeff of Carter Plt Count MPV Immature Gran % (Auto) Neut % (Auto) Lymph % (Auto) Morton % (Auto) Eos % (Auto) Baso % (Auto) Neut # (Auto) Lymph # (Auto) Morton # (Auto) Eos # (Auto) Baso # (Auto) Immature Gran # (Auto) APTT PTT Ratio D-Dimer 2950 H* Sodium Potassium Chloride Carbon Dioxide Anion Gap BUN Creatinine Est Cr Clr Drug Dosing Est GFR ( Amer) Est GFR (Non-Af Amer) BUN/Creatinine Ratio Glucose Calcium Magnesium 2.1 Cancelled Troponin I TSH 2.120 02/12/20 02/12/20 02/12/20 16:46 19:08 20:35 WBC RBC Hgb Hct MCV MCH MCHC RDW Std Deviation RDW Coeff of Carter Plt Count MPV Immature Gran % (Auto) Neut % (Auto) Lymph % (Auto) Morton % (Auto) Eos % (Auto) Baso % (Auto) Neut # (Auto) Lymph # (Auto) Morton # (Auto) Eos # (Auto) Baso # (Auto) Immature Gran # (Auto) APTT 73.1 H* PTT Ratio 2.6 D-Dimer Sodium 136 Potassium 3.8 Chloride 105 Carbon Dioxide 24 Anion Gap 7.0 BUN 12 Creatinine 0.74 Est Cr Clr Drug Dosing 52.4 Est GFR ( Amer) 88.7 Est GFR (Non-Af Amer) 76.5 BUN/Creatinine Ratio 16.3 Glucose 107 H Calcium 7.9 L Magnesium 2.0 Troponin I < 0.015 TSH 02/12/20 02/13/20 02/13/20 22:19 02:05 02:05 WBC 13.07 H RBC 4.08 L Hgb 12.5 Hct 37.3 MCV 91.4 MCH 30.6 MCHC 33.5 RDW Std Deviation 43.6 RDW Coeff of Carter 13.0 Plt Count 214 MPV 9.1 Immature Gran % (Auto) 0.3 Neut % (Auto) 87.3 Lymph % (Auto) 7.1 Morton % (Auto) 4.6 Eos % (Auto) 0.5 Baso % (Auto) 0.2 Neut # (Auto) 11.41 H Lymph # (Auto) 0.93 L Morton # (Auto) 0.60 H Eos # (Auto) 0.06 Baso # (Auto) 0.03 Immature Gran # (Auto) 0.04 H APTT 71.7 H* PTT Ratio 2.6 D-Dimer Sodium Potassium Chloride Carbon Dioxide Anion Gap BUN Creatinine Est Cr Clr Drug Dosing Est GFR ( Amer) Est GFR (Non-Af Amer) BUN/Creatinine Ratio Glucose Calcium Magnesium Troponin I < 0.015 TSH 02/13/20 02/13/20 02:05 08:37 WBC RBC Hgb Hct MCV MCH MCHC RDW Std Deviation RDW Coeff of Carter Plt Count MPV Immature Gran % (Auto) Neut % (Auto) Lymph % (Auto) Morton % (Auto) Eos % (Auto) Baso % (Auto) Neut # (Auto) Lymph # (Auto) Morton # (Auto) Eos # (Auto) Baso # (Auto) Immature Gran # (Auto) APTT 57.2 H* PTT Ratio 2.1 D-Dimer Sodium 136 Potassium 3.8 Chloride 103 Carbon Dioxide 27 Anion Gap 6.0 BUN 12 Creatinine 0.73 Est Cr Clr Drug Dosing 53.1 Est GFR ( Amer) 90.2 Est GFR (Non-Af Amer) 77.8 BUN/Creatinine Ratio 15.9 Glucose 103 H Calcium 8.1 L Magnesium Troponin I TSH Diagnostic Findings The patient's echocardiogram indicates a dilated cardiomyopathy with an estimated left ventricular ejection fraction of around 25%. There is also moderate mitral regurgitation and severe tricuspid regurgitation. Medications Administered Current Inpatient Medications Acetaminophen (Tylenol) 650 mg PO Q4H PRN PRN Reason: Pain or Fever Stop: 03/13/20 15:30 Last Admin: 02/12/20 19:41 Dose: 650 mg Documented by: Al Hydrox/Mg Hydrox/Simethicone (Maalox) 15 ml PO Q4H PRN PRN Reason: Dyspepsia Stop: 03/13/20 15:30 Ascorbic Acid (Vitamin C) 1,000 mg PO QAM [facility] Stop: 03/14/20 08:59 Last Admin: 02/13/20 07:59 Dose: 1,000 mg Documented by: Doxycycline Hyclate (Vibramycin) 100 mg PO BID [facility] Stop: 02/22/20 20:59 Last Admin: 02/13/20 07:59 Dose: 100 mg Documented by: Fluticasone Propionate (Flonase) 2 sprays PETER HS [facility] Stop: 03/13/20 20:59 Last Admin: 02/12/20 21:04 Dose: 2 sprays Documented by: Heparin Sodium/Dextrose (Heparin Sodium/Dextrose) 25,000 units in 500 mls @ 18 mls/hr IV .Q24H [facility]; Protocol Stop: 03/13/20 12:44 Last Admin: 02/13/20 11:57 Dose: 900 units/hr, 18 mls/hr Documented by: Diltiazem HCl 125 mg/ Dextrose 125 mls @ 5 mls/hr IV .Q24H [facility]; Protocol Stop: 03/14/20 11:29 Last Admin: 02/13/20 11:56 Dose: 5 mg/hr, 5 mls/hr Documented by: Ioversol (Optiray 320 125ml) 119 ml IV ONCE PRN PRN Reason: Interaction Checking Stop: 02/16/20 13:59 Ketoconazole (Nizoral 2%) 1 appln EXT HS [facility] Stop: 02/22/20 20:59 Last Admin: 02/12/20 21:05 Dose: 1 appln Documented by: Levothyroxine Sodium (Synthroid) 200 mcg PO [id number] [facility] Stop: 03/14/20 06:29 Last Admin: 02/13/20 05:45 Dose: 200 mcg Documented by: Magnesium Hydroxide (Milk Of Magnesia) 30 ml PO Q12H PRN PRN Reason: Constipation Stop: 03/13/20 15:30 Multivitamins (Multivitamin Tab) 1 tab PO QDL [facility] Stop: 03/14/20 11:29 Last Admin: 02/13/20 10:38 Dose: 1 tab Documented by: Nitroglycerin (Nitrostat) 0.4 mg SL UD PRN PRN Reason: Chest Pain Stop: 03/13/20 15:30 Last Admin: 02/12/20 19:56 Dose: 0.4 mg Documented by: Ondansetron HCl (Zofran) 4 mg IV Q6H PRN PRN Reason: Nausea Stop: 03/13/20 15:30 Oxycodone/Acetaminophen (Percocet 5mg/325mg) 1 tab PO Q4H PRN PRN Reason: Pain Stop: 02/26/20 17:38 Pantoprazole Sodium (Protonix) 40 mg PO DAILY PRN PRN Reason: ACID REFLUX Stop: 03/13/20 15:40 Polyethylene Glycol (Miralax Powder Packet) 17 gm PO DAILY PRN PRN Reason: Constipation Stop: 03/13/20 15:30 Potassium Chloride (Klor-Con M20) 20 meq PO QAM [facility] Stop: 03/14/20 08:59 Last Admin: 02/13/20 07:59 Dose: 20 meq Documented by: Vitamin B Complex (Vitamin B Complex) 1 tab PO QAM [facility] Stop: 03/14/20 08:59 Last Admin: 02/13/20 07:58 Dose: 1 tab Documented by: Vitamin D (Vitamin D3) 1,000 units PO QAM [facility] Stop: 03/14/20 08:59 Last Admin: 02/13/20 07:59 Dose: 1,000 units Documented by:
[2020-02-13] MEDS ORDERED: lisinopriL 5 MG TAB PO ONE (13:45)
[2020-02-13] MEDS ORDERED: FUROSEMIDE 20 MG in SYRINGE 0 ML IV ONE (14:45)
--- NOTE | 2020-02-13 15:22 | Electrocardiogram Report ---
Test Reason : Blood Pressure : / mmHG Vent. Rate : 126 BPM Atrial Rate : 197 BPM P-R Int : 000 ms QRS Dur : 102 ms QT Int : 340 ms P-R-T Axes : 000 091 -45 degrees QTc Int : 492 ms Atrial fibrillation with rapid ventricular response Rightward axis Septal infarct (cited on or before 24-JAN-2020) Abnormal ECG When compared with ECG of 12-FEB-2020 10:46, No significant change was found Confirmed by Hans Danielle ([id number]) on 02/13/2020 3:22:06 PM Referred By: Bijan Barakat Confirmed By:Hans Danielle
--- NOTE | 2020-02-13 15:43 | Electrocardiogram Report ---
Test Reason : Blood Pressure : / mmHG Vent. Rate : 123 BPM Atrial Rate : 000 BPM P-R Int : 000 ms QRS Dur : 096 ms QT Int : 354 ms P-R-T Axes : 000 088 -06 degrees QTc Int : 506 ms Atrial fibrillation with rapid ventricular response with premature ventricular or aberrantly conducte d complexes Septal infarct (cited on or before 24-JAN-2020) Abnormal ECG When compared with ECG of 12-FEB-2020 19:53, (unconfirmed) ST no longer depressed in Inferior leads Confirmed by Hans Danielle ([id number]) on 02/13/2020 3:43:38 PM Referred By: Bijan Barakat Confirmed By:Hans Danielle
[2020-02-13] MEDS: FLUTICASONE PROPIONATE NA SPR 16 GM BTL NAE SCH (20:23)
[2020-02-13] MEDS: KETOCONAZOLE 2% CR 15 GM TUBE EXT SCH (20:23)
[2020-02-14] MEDS: LEVOTHYROXINE SODIUM 200 MCG TABLET PO SCH (05:26)
[2020-02-14 06:15] LABS: Partial Thromboplastin Ratio 2.7
[2020-02-14 06:23] LABS: Partial Thromboplastin Time 75.1 Seconds (21.0-31.0)
[2020-02-14] MEDS: HEPARIN SODIUM/DEXTROSE 25,000 UNITS/500 ML BAG IV SCH (06:34)
--- NOTE | 2020-02-14 07:45 | Hospitalist Progress Note ---
Date of Service February 14, 2020 Assessment & Plan (1) Atrial fibrillation with RVR: (2) Elevated d-dimer: From Admit team-This is an 79-year-old female who has significant past medical history of PAF, hypothyroidism, hyperlipidemia who is a patient of Dr. Barakat and presents to ED at his referral secondary to A. fib with RVR. In ED patient was in atrial fibrillation with RVR. I do not have an ecg to review at this time. Lab work revealed WBC 11.79, H&H 13.2 and 39.8, platelet 2.1, BMP generally unremarkable except for mild hyperglycemia 112 TSH 2.2, troponin WNL. D-dimer ordered and elevated at 2950. Chest x-ray revealed stable mild cardiomegaly, mild scoliosis In ED she received Lopressor 2.5 mg IV which did improve rates into the low 100s. On Metoprolol, Off Cardizem gtt, Transition to Eliquis, DC home today TSH, Lytes all WNL given elevated dimer obtain CTA chest, b/l dopplers both negative (3) Lyme disease: pt with reports of ill feeling x 2 weeks, arthralgias, reported "bulls eye" rash that has been waxing and waning tested outpt 02/10 Initial Lyme IgG/IgM antibody greater than 12.4 which resulted in a positive test, Western blot is pending Given above symptoms treat empirically with doxycycline 100 mg twice daily for 1 4 days (4) Hypothyroidism: Continue levothyroxine TSH WNL (5) GERD (gastroesophageal reflux disease): PPI prn (6) DVT prophylaxis: IV heparin Disposition: Home today on Metoprolol and Doxycycline Follow up: PCP Dr. Barakat and Dr Ricci upon discharge ROS-No Headache, No Visual Changes, No Nausea, No Vomiting, No Fever, No Chills, No Neck Pain or Stiffness, No Chest Pain, No Palpitations, No SOB, No SARGENT, No Cough, No Sputum, No Wheezing, No Abdominal Pain, No Diarrhea, No Hematemesis, No Hemoptysis, No Unexpected Weight Loss, No Flank pain, No Melena, No Hematochezia, No Frequency, No Urgency, No Burning, No Hematuria, No Rashes, No Diaphoresis. Appetite is Normal Physical Exam Gen-AAO x 3, NAD, Afebrile Head-NCAT, EOMI, PERRLA, Anicteric Sclera, No Posterior Pharyngeal Erythema Neck-Supple, No JVD, No Thyromegaly, No Masses, No LAD, No Bruits Lungs-Clear to Auscultation Bilaterally, No Rales, No Rhonchi, No Wheezing, No Crepitus Chest-Reg c occasional PVCs No S4, +S1, +S2, No S3, No Murmurs, No Rubs, No Gallops, +Ectopy Abdomen-Soft, Bowel Sounds Present, Non Tender, Non Distended, No Hepatomegaly, No Splenomegaly, No Palpable Masses, No Rebound, No Rigidity, No Guarding Musculoskeletal-Full Range of Motion Bilaterally, No CVAT Extremities-No Cyanosis, No Clubbing, No Edema Nuero-Cranial Nerves II-XII grossly intact, Motor WNL, DTRs WNL, Strength WNL, Non Focal Psych-Normal Mood Admission and Anticipated Discharge Date Admission Date: February 12, 2020 Anticipated date of discharge: 02/14/20 Results & Data Results & Data ([facility]) Vital Signs (Past 12 Hours) Vital Signs Temp Pulse Pulse Resp BP Pulse Ox 02/14/20 07:21 69 02/14/20 04:06 36.4 C L 64 18 133/64 96 02/14/20 02:25 70 02/13/20 23:31 36.3 C L 76 18 125/75 96 02/13/20 20:04 36.5 C 77 16 107/58 L 97
--- NOTE | 2020-02-14 07:51 | Discharge Summary ---
Date of Service February 14, 2020 Admission HPI Per Admitting Provider This is an 79-year-old female who has significant past medical history of PAF, hypothyroidism, hyperlipidemia who is a patient of Dr. Barakat and presents to ED at his referral secondary to A. fib with RVR. She was seen and evaluated in the office today for an acute visit due to continued ill feeling when she was noted to be in A. fib with RVR. She was referred to ED for further evaluation. Of significance patient has been ill feeling for the past 2 weeks. Symptoms initially started as Flulike symptoms including pharyngitis. She was seen in ED at that time and was tested for COVID which was negative. She continued to feel poorly and was seen and evaluated by PCP. It was felt she just had a viral illness. She then developed circular like red rashes that were, "bull's-eye in appearance." She looked them up online and thought it may have been Lyme's.She denies any known tick bite. She underwent Lyme serology yesterday. She further complains of fatigue, arthralgias including shoulder pain, "my whole spine hurts," and myalgias. She denies any fever. Further elicits that she was awoken this morning with substernal chest pressure, 5/10, nonradiating, not associated with diaphoresis, nausea or shortness of breath. Has never had similar symptoms in the past. This has since resolved. Of significance she does have history of PAF back in 2005 when she was hospitalized with significant abdominal surgery. She had been treated with atenolol and has not been anticoagulated. Currently she denies any fever, chills, sweats, lightheadedness, dizziness, syncope, shortness of breath, orthopnea, PND, cough, hemoptysis,, vomiting, abdominal pain, change in bowel or urinary habits. Her appetite is overall been decreased. She has not taken any of her meds this morning. In ED patient was in atrial fibrillation with RVR. I do not have an ecg to review at this time. Lab work revealed WBC 11.79, H&H 13.2 and 39.8, platelet 2.1, BMP generally unremarkable except for mild hyperglycemia 112 TSH 2.2, troponin WNL. D-dimer ordered and elevated at 2950. Chest x-ray revealed stable mild cardiomegaly, mild scoliosis In ED she received Lopressor 2.5 mg IV which did improve rates into the low 100s. Admission Exam Per Admitting Provider Constitutional: WD/WN, appears younger than stated age, female, vitals as above, NAD, sitting up in bed, pleasant, conversing easily Head: Normocephalic, Atraumatic Eyes: PERRL, conjunctivae normal, anicteric sclerae ENMT: external ear and nose normal, oropharynx normal Neck: trachea midline, no thyromegaly normal visual inspection Respiratory: normal respiratory effort, lungs clear to auscultation, no wheeze, rales, rhonchi. Normal insp/exp effort, no accessory muscle use Cardiovascular: Irregularly irregular, no murmur, no edema Vessels: no JVD or carotid bruit Chest: normal inspection of chest Abdomen: normal bowel sounds, soft, nontender, no hepatosplenomegaly Musculoskeletal: + Thoracic scoliosis, no cyanosis or clubbing, extremities motor strength 5/5 Skin: Right antecubital faint bull's-eye rash noted, warm and dry normal turgor Neurologic: PERRL, EOMI, accommodation nl, no face palsy, no dysarthria CN's II-XI intact bilaterally and moves all extremities Psychiatric: A+Ox3, euthymic affect Lymphatic: no cervical or axillary lymphadenopathy : deferred Principal Diagnosis (1) Atrial fibrillation with RVR: (2) Lyme disease: (3) Hypothyroidism: (4) GERD (gastroesophageal reflux disease): Discharge Exam See Below Discharge Data Allergies Allergy/AdvReac Type Severity Reaction Status Date / Time alendronate sodium Allergy Intermediate RASH Verified 02/14/20 06:30 Consultations 02/12/20 12:07 ED Decision to Admit Stat 02/12/20 12:54 Consult Cardiology Routine 02/12/20 15:31 Consult Case Management - Discharge Planning Routine Ordered Studies 02/12/20 13:20 CT angio chest PE protocol Stat 02/12/20 13:21 US venous doppler LE BI Stat Current Diagnoses Lyme disease, unspecified (02/12/20) Hypothyroidism, unspecified (02/12/20) Unspecified atrial fibrillation (02/12/20) Gastro-esophageal reflux disease without esophagitis (02/12/20) Other specified abnormal findings of blood chemistry (02/12/20) Encounter for prophylactic measures, unspecified (02/12/20) Allergies alendronate sodium Allergy (Intermediate, Verified 02/14/20 06:30) RASH Height/Weight/Isolation Height 5 ft 4 in Weight 54.7 kg Chemistry 02/12/20 02/12/20 02/13/20 10:45 20:35 02:05 Sodium 137 136 136 Potassium 4.3 3.8 3.8 Chloride 103 105 103 Carbon Dioxide 28 24 27 Anion Gap 6.0 7.0 6.0 BUN 14 12 12 Creatinine 0.82 0.74 0.73 Glucose 112 H 107 H 103 H Hospital Course (1) Atrial fibrillation with RVR: (2) Elevated d-dimer: From Admit team-This is an 79-year-old female who has significant past medical history of PAF, hypothyroidism, hyperlipidemia who is a patient of Dr. Barakat and presents to ED at his referral secondary to A. fib with RVR. In ED patient was in atrial fibrillation with RVR. I do not have an ecg to review at this time. Lab work revealed WBC 11.79, H&H 13.2 and 39.8, platelet 2.1, BMP generally unremarkable except for mild hyperglycemia 112 TSH 2.2, troponin WNL. D-dimer o rdered and elevated at 2950. Chest x-ray revealed stable mild cardiomegaly, mild scoliosis In ED she received Lopressor 2.5 mg IV which did improve rates into the low 100s. Back in NSR c Occasional PVCs On Metoprolol, Off Cardizem gtt, Transition to Eliquis today, DC home today TSH, Lytes all WNL given elevated dimer obtain CTA chest, b/l dopplers both negative (3) Lyme disease: pt with reports of ill feeling x 2 weeks, arthralgias, reported "bulls eye" rash that has been waxing and waning tested outpt 02/10 Initial Lyme IgG/IgM antibody greater than 12.4 which resulted in a positive test, Western blot is pending Given above symptoms treat empirically with doxycycline 100 mg twice daily for 14 days (4) Hypothyroidism: Continue levothyroxine TSH WNL (5) GERD (gastroesophageal reflux disease): PPI prn (6) DVT prophylaxis: IV heparin Disposition: Home today on Metoprolol and Doxycycline Follow up: PCP Dr. Barakat and Dr Ricci upon discharge ROS-No Headache, No Visual Changes, No Nausea, No Vomiting, No Fever, No Chills, No Neck Pain or Stiffness, No Chest Pain, No Palpitations, No SOB, No SARGENT, No Cough, No Sputum, No Wheezing, No Abdominal Pain, No Diarrhea, No Hematemesis, No Hemoptysis, No Unexpected Weight Loss, No Flank pain, No Melena, No Hematochezia, No Frequency, No Urgency, No Burning, No Hematuria, No Rashes, No Diaphoresis. Appetite is Normal Physical Exam Gen-AAO x 3, NAD, Afebrile Head-NCAT, EOMI, PERRLA, Anicteric Sclera, No Posterior Pharyngeal Erythema Neck-Supple, No JVD, No Thyromegaly, No Masses, No LAD, No Bruits Lungs-Clear to Auscultation Bilaterally, No Rales, No Rhonchi, No Wheezing, No Crepitus Chest-Reg c occasional PVCs No S4, +S1, +S2, No S3, No Murmurs, No Rubs, No Gallops, +Ectopy Abdomen-Soft, Bowel Sounds Present, Non Tender, Non Distended, No Hepatomegaly, No Splenomegaly, No Palpable Masses, No Rebound, No Rigidity, No Guarding Musculoskeletal-Full Range of Motion Bilaterally, No CVAT Extremities-No Cyanosis, No Clubbing, No Edema Nuero-Cranial Nerves II-XII grossly intact, Motor WNL, DTRs WNL, Strength WNL, Non Focal Psych-Normal Mood Total Time Total Time Spent Total Time Spent (In Minutes): 45 mins Total Time Includes: Examination of the Patient, Discharge Planning, Medication Reconciliation and Communication With Other Providers Discharge Plan Discharge Items Patient Disposition: Home - Self-Care Reason For Visit: CHEST PAIN,RAPID AFIB Discharge Diagnosis: (1) Atrial fibrillation with RVR: (2) Lyme disease: (3) Hypothyroidism: (4) GERD (gastroesophageal reflux disease): Condition on Discharge: Good Activity: Resume your previous activity Lifting: None Bathing: No limitations Exercise/Sports: None Driving/Machine Use: No limitations Weightbearing: Full weightbearing Non-emergency contact: Primary Care Provider and Desulfurizer Operator Call non-emergency contact if: you have any medication questions Follow-up/Referrals: Bijan Barakat MD [Primary Care Provider] - Diet: Regular Addtl Attending Provider Instructions: None Pending Studies at Discharge: No Stand-Alone Forms: [employer], Smoking Cessation Medications and DC Order Prescriptions: New doxycycline hyclate 100 mg Capsule 100 mg PO BID Qty: 22 RF: 0 lisinopril [Zestril] 5 mg Tablet 5 mg PO QAM Qty: 30 RF: 0 metoprolol succinate 25 mg Tablet Extended Release 24 Hr 25 mg PO QAM Qty: 30 RF: 0 Eliquis 2.5 mg Tablet 2.5 mg PO BID Qty: 60 RF: 0 Continued ketoconazole [Nizoral] 2 % shampoo 1 applic TOPICAL [id number] PRN (Reason: ..) RF: 0 omeprazole 20 mg capsule,delayed release(DR/EC) 20 mg PO DAILY PRN (Reason: Acid Reflux) RF: 0 levothyroxine 200 mcg tablet 200 mcg PO [id number] RF: 0 multivitamin Tablet 1 tab PO QDL RF: 0 ketoconazole 2 % cream 1 applic TOPICAL HS RF: 0 fluticasone propionate [Flonase Allergy Relief] 50 mcg/actuation [place],Suspension 2 spray INTRANASAL HS RF: 0 potassium chloride 20 mEq Tablet Extended Release 20 meq PO QAM RF: 0 ascorbic acid (vitamin C) [Vitamin C] 1,000 mg Tablet 1,000 mg PO QAM RF: 0 vitamin B complex Tablet 1 tab PO QAM RF: 0 cholecalciferol (vitamin D3) [Vitamin D3] 25 mcg (1,000 unit) Tablet 25 mcg PO QAM RF: 0 Nutrilite Calcium Tablet 3 tab PO QAM RF: 0 Discontinued atenolol 50 mg Tablet 25 mg PO QAM RF: 0 Discharge Orders: Discharge Order (Routine); Ordered 02/14/20 Ordered By: Pedrito De La Torre Admission Data Admit Date/Time: 02/12/20 12:32 Attending Provider: Pedrito De La Torre Admit Provider: Sherrei Huff Primary Care Provider: Bijan Barakat Other Providers: Jose Ricci ; Sherrie Huff
[2020-02-14] MEDS: DOXYCYCLINE HYCLATE 100 MG CAP PO SCH (08:15)
[2020-02-14] MEDS: POTASSIUM CHLORIDE 20 MEQ TABCR PO SCH (08:18)
[2020-02-14] MEDS: CHOLECALCIFEROL 1,000 UNITS 25 MCG TAB PO SCH (08:19)
[2020-02-14] MEDS: ASCORBIC ACID 500 MG TAB PO SCH (08:19)
[2020-02-14] MEDS: VITAMIN B COMPLEX TAB PO SCH (08:19)
[2020-02-14] MEDS ORDERED: APIXABAN 2.5 MG TAB PO SCH (09:00)
[2020-02-14] MEDS ORDERED: METOPROLOL SUCC 25MG EXT REL TAB PO SCH (09:00)
[2020-02-14] MEDS ORDERED: lisinopriL 5 MG TAB PO SCH (09:00)
[2020-02-14] MEDS: MULTIVITAMIN TAB PO SCH (10:55)
--- NOTE | 2020-02-14 10:58 | Electrocardiogram Report ---
Test Reason : Blood Pressure : / mmHG Vent. Rate : 065 BPM Atrial Rate : 065 BPM P-R Int : 164 ms QRS Dur : 100 ms QT Int : 442 ms P-R-T Axes : 068 105 058 degrees QTc Int : 459 ms Normal sinus rhythm Rightward axis Abnormal ECG When compared with ECG of 13-FEB-2020 06:42, Sinus rhythm has replaced Atrial fibrillation Vent. rate has decreased BY 58 BPM Serial changes of Septal infarct Present Confirmed by Tim Peralta ([id number]) on 02/14/2020 10:57:41 AM Referred By: Bijan Barakat Confirmed By:Yordy Peralta
[2020-02-14 12:47] LABS: Partial Thromboplastin Ratio 1.2
--- NOTE | 2020-02-14 15:46 | Cardiology Progress Note ---
Date of Service February 14, 2020 Assessment & Plan (1) Atrial fibrillation with rapid ventricular response: (1)Patient presented with newly recognized atrial fibrillation, rapid ventricular response, to sinus rhythm sinus rhythm while on a diltiazem infusion. (2)Echoardiogram revealed severe global left ventricular hypokinesis, LVEF ~25%, with moderate LA dilatation, moderate MR, severe TR, and a small circumferential pericardial effusion.LVEF was 55-60% in 11/2017. (3) Zio monitor performed in 2018 revealed PVC burden of 14%. (4) Prelim Lyme serology positive and Western blot positive: IGM ANTIBODIES PRESENT TO AT LEAST 2 OF THE FOLLOWING 3 SIGNIFICANT BANDS: 23,39,41 kD PLAN: Patient eager for discharge. Although Lyme carditis /myocarditis is a consideration, she is hemodynamically stable, with no AV block, and is afebrile. I believe a trial of oral antibiotics is reasonable rather than IV ceftriaxone at present. The frequent PVCs are chronic. Prior to hospital treatment with atenolol has been replaced with metoprolol succinate. If she has recurrent atrial fibrillation, future considerations include titrating metoprolol succinate, or adding amiodarone however, given her Lyme test,will start with low dose beta david instead. Patient has been placed on based medications for systolic heart failure including metoprolol succinate and lisinopril. Eliquis has been started for stroke prophylaxis. Outpt cardiology follow up in 7-14 days requested. Subjective Chief complaint: Follow-up of generalized ill feeling, presentation with atrial fibrillation, rapid ventricular response, newly diagnosed left ventricular systolic dysfunction Subjective: Patient states that she feels improved and she is eager for discharge. She notes having had recent rash on her legs that has since disappeared and may be consistent with erythema migrans. She certainly has recent constitutional symptoms consistent with Lyme disease. She has remained in sinus rhythm overnight and thus far this morning, occasional PVCs including episodes of sinus rhythm with ventricular bigeminy noted on telemetry. Physical Exam Physical Exam: Temp Pulse Resp BP Pulse Ox 36.7 C 71 17 112/66 97 02/14/20 11:06 02/14/20 14:57 02/14/20 11:06 02/14/20 11:06 02/14/20 11:06 Constitutional: WD/WN, vitals as above Respiratory: normal respiratory effort, lungs clear to auscultation Cardiovascular: RRR, no murmur, no edema Gastrointestinal (Abdomen): normal bowel sounds, soft, nontender, no hepatosplenomegaly Neurologic: PERRL, EOMI, accommodation nl, no face palsy, no dysarthria Results & Data Vital Signs (Past 12 Hours) Vital Signs Temp Pulse Pulse Pulse Resp BP BP 02/14/20 14:57 71 02/14/20 11:06 36.7 C 93 H 17 112/66 02/14/20 09:32 36.5 C 64 66 18 162/83 H 02/14/20 07:22 36.5 C 66 18 162/83 H 02/14/20 07:21 69 02/14/20 04:06 36.4 C L 64 18 133/64 Pulse Ox 02/14/20 14:57 02/14/20 11:06 97 02/14/20 09:32 97 02/14/20 07:22 97 02/14/20 07:21 02/14/20 04:06 96
== END 2020-02-14 15:51 | disposition home or self-care (01) | DRG 309 ==
LOC: ED 10:26 → SUATTDRO 12:32 → 2S 12:32
DX: K21.9 Gastro-esophageal reflux disease without esophagitis; I48.0 Paroxysmal atrial fibrillation; E78.5 Hyperlipidemia, unspecified; E03.9 Hypothyroidism, unspecified; A69.20 Lyme disease, unspecified

== ENCOUNTER 2022-06-25 03:29 | Inpatient (IN) ==
--- NOTE | 2022-06-25 04:07 | Emergency Department Note ---
History of Present Illness General Chief complaint: Illness Stated complaint: VOMIT,SWEAT,SHAKING,CANNOT SLEEP,CANNOT WALK Time Seen by Provider: 06/25/22 03:42 History of Present Illness 82-year-old female presents emergency department states she had shakes vomiting sweatiness started earlier yesterday evening. Patient did take a supplement for energy. Patient denies chest pain shortness of breath abdominal pain or urinary symptoms. Patient denies any other complaints. She states generalized weakness. Home Medications Medication Instructions Recorded Confirmed Type fluticasone propionate 50 2 spray intranasal QAM PRN as 01/24/20 06/25/22 History mcg/actuation nasal directed spray,suspension (Flonase Allergy Relief) ketoconazole 2 % topical cream 1 applic topical HS 01/24/20 06/25/22 History levothyroxine 200 mcg tablet See Rx Instructions .Route .COMPLEX 01/24/20 06/25/22 History multivitamin 1 tab PO QDL 01/24/20 06/25/22 History ascorbic acid (vitamin C) 1,000 mg 1,000 mg PO QAM 02/12/20 06/25/22 History tablet (Vitamin C) cholecalciferol (vitamin D3) 25 25 mcg PO QAM 02/12/20 06/25/22 History mcg (1,000 unit) tablet (Vitamin D3) vitamin B complex 1 tab PO QAM 02/12/20 06/25/22 History apixaban 2.5 mg tablet (Eliquis) 2.5 mg PO BID #60 tabs 02/14/20 06/25/22 Rx hydrochlorothiazide 25 mg tablet 12.5 mg PO .MON/SUN/Sun07/27/20 06/25/22 History tamoxifen 20 mg tablet 20 mg PO DAILY 02/23/21 06/25/22 History calcium carbonate 600 mg calcium 600 mg PO TIDM 05/03/22 06/25/22 History (1,500 mg) tablet (Calcium) estradiol 0.01% (0.1 mg/gram) 1 applic vaginal 3XWK 05/03/22 06/25/22 History vaginal cream ketoconazole 2 % shampoo 1 ea topical 3XWK 05/03/22 06/25/22 History lisinopril 10 mg tablet 10 mg PO QAM 05/03/22 06/25/22 History magnesium oxide 400 mg PO QAM 05/03/22 06/25/22 History metoprolol succinate 25 mg 25 mg PO AMHS 05/03/22 06/25/22 History tablet,extended release 24 hr potassium chloride 20 mEq oral 20 meq PO DAILY 05/03/22 06/25/22 History packet spironolactone 25 mg tablet 12.5 mg PO DAILY 05/03/22 06/25/22 History timolol maleate 0.5 % eye drops 1 drp OPR BID 05/03/22 06/25/22 History Saccharomyces boulardii 250 mg 250 mg PO BID #20 caps 05/04/22 06/25/22 Rx capsule (Florastor) tacrolimus 0.03 % topical ointment 1 applic topical BID 06/25/22 06/25/22 History triamcinolone acetonide 0.1 % 0.1 applic topical 2XWK 06/25/22 06/25/22 History topical ointment Allergies Allergy/AdvReac Type Severity Reaction Status Date / Time alendronate sodium Allergy Intermediate RASH Verified 06/25/22 06:24 Past Med/Surg History Medical History Atrial fibrillation with rapid ventricular response Chest pain Diffuse cystic mastopathy Elevated d-dimer GERD (gastroesophageal reflux disease) History of small bowel obstruction History of ventral hernia repair Hypertension Hypothyroidism Lateral meniscus tear Lyme disease 01/2020 Mitral valve regurgitation Osteoporosis SOB (shortness of breath) Subacute bacterial endocarditis Temporomandibular disorder Surgical History History of breast biopsy Late 70's/early 80's - Benign History of cataract surgery (2013) History of colonoscopy 05/29/2014, 03/27/2017 History of esophagogastroduodenoscopy (EGD) (03/27/17) History of esophagogastroduodenoscopy (EGD) (03/15/15) with Endoscopic US History of left breast biopsy (06/01/20) History of lumpectomy of left breast (06/30/20) + SLN Biopsy (positive for invasive carcinoma) History of right breast biopsy (09/19/05) History of surgery (03/14/06) Closure colostomy, cholecystectomy, cholangiogram, incidental appendectomy (Dr. Reynolds) Status post appendectomy (03/14/06) Status post cholecystectomy (03/14/06) Status post hernia repair (05/01/07) Status post partial colectomy (12/02/05) "bowel perforation" Status post partial thyroidectomy Status post tonsillectomy as a child Family History Father , Passed age 84 of CHF No problems noted. Mother , Passed age 84 of Alzheimer's complications No problems noted. Aunt , (Paternal) Passed in mid 70's of unknown cancer No problems noted. Brother , Passed age 65 diabetes complications No problems noted. Daughter No problems noted. Daughter No problems noted. Daughter No problems noted. Son No problems noted. 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 Feels Safe at Home: Yes Childhood Exposure to Second-Hand Smoke: No caffeine: Yes (Tea 2 cups/day, 0.5 cups of coffee/day ) during the past year weight has: decreased > 10 lbs Dental Care, Regularly: Yes Assistive Devices: None Review of Systems A total of 10 systems reviewed and were otherwise negative Constitutional: + body aches and + weakness Respiratory: + cough Gastrointestinal: + nausea Physical Exam Vital Signs Vital Signs - 24 hr 06/25/22 03:36 06/25/22 04:12 06/25/22 04:12 Temperature 37.2 C Temperature Source Temporal Artery Scan Pulse Rate 93 H Respiratory Rate 24 Respiratory Effort / Characteristics Non-Labored Respiratory Depth Normal Blood Pressure 134/100 Blood Pressure Mean 111 Pulse Oximetry 92 97 Oxygen Delivery Method Room Air Room Air Sepsis Recent Fever Within 48 Hours No Sepsis New/Unexplained Change in Mental Status N/A Sepsis Action Taken by Nursing No Action Required 06/25/22 04:15 Temperature Temperature Source Pulse Rate Respiratory Rate Respiratory Effort / Characteristics Non-Labored Respiratory Depth Normal Blood Pressure Blood Pressure Mean Pulse Oximetry Oxygen Delivery Method Sepsis Recent Fever Within 48 Hours Sepsis New/Unexplained Change in Mental Status Sepsis Action Taken by Nursing GENERAL: Patient is awake alert in no acute distress patient is resting comfortably and showing no signs of anxiety EYES: The conjunctivae are clear. The pupils are round and reactive. EARS, NOSE, MOUTH AND THROAT: The nose is without any evidence of any deformity. Mucous membranes are moist. Tongue is midline. NECK: The neck is nontender and supple. RESPIRATORY: Normal respiratory effort is noted there is no evidence of wheezing rhonchi or rales CARDIOVASCULAR: Regular rate and rhythm noted there no murmurs rubs or gallops normal S1 normal S2. GASTROINTESTINAL: The abdomen is soft. Abdomen is nontender. PELVIS: The Pelvis is stable. No tenderness to palpation is noted. BACK: No midline tenderness or or step-off noted range of motion in flexion extension as well as rotation no signs of muscle spasm noted MUSCULOSKELETAL/EXTREMITIES: There is no evidence of gross deformity full range of motion is noted in the hips and shoulders. SKIN: There is no obvious evidence of any rash. There are no petechiae, pallor or cyanosis noted. NEUROLOGIC: Patient is awake alert and oriented x3 strength is symmetric Course Reevaluation(s) Reevaluation #1: Patient was started on IV fluids IV Rocephin and Zithromax. I suspect that the patient has a right lower lobe pneumonia. Patient was found to have an 80 troponin in review patient was given aspirin but she is also on Eliquis; patient may have a urinary tract infection as well. Patient has no current chest pain or shortness of breath. Patient's presenting complaint was shaking chills and rigors. Time: 05:51 Reevaluation #2: Patient was started on IV fluids patient will not be given a full 30 mL/kg bolus at this time; patient will be given judicious IV fluid hydration for sepsis as she has a significant history in the past and there is a concern for volume overload. Patient currently is not in septic shock Time: 05:51 Consultations Consultation #1: [facility] hospitalist for admission Time: 05:52 Administered Medications Sodium Chloride (Nss 1000ml) 1,000 mls @ 999 mls/hr IV .Q1H1M ONE Stop: 06/25/22 06:47 Last Admin: 06/25/22 06:11 Dose: 999 mls/hr Documented By: OSMAN Lactated Ringer's (Lr) 1,000 mls @ 100 mls/hr IV .Q10H ONE Stop: 06/25/22 15:58 Last Admin: 06/25/22 06:16 Dose: 100 mls/hr Documented By: OSMAN Discontinued Medications Aspirin (Aspirin Chew 324 Mg) 324 mg PO NOW STA Stop: 06/25/22 05:48 Last Admin: 06/25/22 06:08 Dose: 324 mg Documented By: OSMAN Ceftriaxone Sodium (Rocephin) 1,000 mg in 50 mls @ 100 mls/hr IV NOW STA Stop: 06/25/22 05:34 Last Admin: 06/25/22 05:53 Dose: 100 mls/hr Documented By: OSMAN Ondansetron HCl (Ondansetron Inj 2 Mg/Ml 2 Ml Vial) 4 mg IV NOW STA Stop: 06/25/22 05:53 Last Admin: 06/25/22 06:11 Dose: 4 mg Documented By: OSMAN Critical Care Time Critical Care Time: Yes Total Critical Care Time: 35 I have personally spent greater than 35 minutes of critical care time in the direct management of this patient. This includes bedside care, interpretation of diagnostic studies, and testing, discussion with consultants, patient, and family members, and other required patient management activities. These minutes are in excess of all separately billable procedures. Medical Decision Making Medical Records Attestation: I reviewed the patient's medical records. Home Medications Current Medication List: was personally reviewed by me Laboratory Data Attestation: I reviewed the patient's lab results. Result diagrams: 06/25/22 04:06 06/25/22 04:06 Lab Results 06/25/22 06/25/22 06/25/22 Range/Units 04:06 04:06 04:06 WBC 14.86 H (4.8-10.8) K/ul RBC 4.44 (3.93-5.22) M/uL Hgb 14.4 (12.0-16.0) g/dl Hct 42.4 (34.1-44.9) % MCV 95.5 (80.0-100.0) fL MCH 32.4 (25.0-34.0) pg MCHC 34.0 (32.0-36.0) g/dL RDW Std Deviation 43.4 (36.4-46.3) fL RDW Coeff of Carter 12.3 (11.5-14.5) % Plt Count 201 (130-400) K/uL MPV 9.8 (9.4-12.3) fL Immature Gran % (Auto) 0.6 % Neut % (Auto) 87.6 % Lymph % (Auto) 7.6 % [place] % (Auto) 4.0 % Eos % (Auto) 0.1 % Baso % (Auto) 0.1 % Neut # (Auto) 13.01 H (1.4-6.5) K/uL Lymph # (Auto) 1.13 L (1.2-3.4) K/uL [place] # (Auto) 0.60 (0.24-0.82) K/uL Eos # (Auto) 0.01 (0-0.50) K/uL Baso # (Auto) 0.02 (0-0.2) K/uL Immature Gran # (Auto) 0.09 H (0.00-0.02) K/uL Sodium 137 (136-145) mmol/L Potassium 4.2 (3.5-5.1) mmol/L Chloride 101 (98-107) mmol/L Carbon Dioxide 24 (21-32) mmol/L Anion Gap 12 H (3-11) BUN 30 H (6-23) mg/dl Creatinine 1.06 (0.6-1.2) mg/dl Est Cr Clr Drug Dosing Not Reportable Est GFR ( Amer) 56.2 ml/min Est GFR (Non-Af Amer) 48.5 ml/min BUN/Creatinine Ratio 28.3 H (10-20) Glucose 165 H (70-99(Fasting)) mg/dl Lactate 3.8 H* (0.4-2.0) mmol/L Calcium 9.2 (8.5-10.1) mg/dl Magnesium 2.3 (1.7-2.4) mg/dl Total Bilirubin 0.8 (0.2-1.0) mg/dl Direct Bilirubin 0.1 (0-0.2) mg/dl AST 44 H (13-39) U/L ALT 23 (7-52) U/L Alkaline Phosphatase 33 L (34-104) U/L Troponin I High Sens 1790.4 H* (0-14) pg/ml Total Protein 7.0 (6.0-8.3) gm/dl Albumin 4.2 (3.4-5.0) gm/dl Procalcitonin (0-0.5) ng/ml Urine Color Urine Appearance (Clear) Urine pH (4.5-7.5) Ur Specific [place] (1.000-1.030) Urine Protein (Negative) Urine Glucose (UA) (Negative) Urine Ketones (Negative) Urine Blood (Negative) Urine Nitrite (Negative) Urine Bilirubin (Negative) Urine Urobilinogen (Negative) Ur Leukocyte Esterase (Negative) Urine WBC (Auto) (0-5) /hpf Urine RBC (Auto) (0-4) /hpf U Hyaline Cast (Auto) (0-5) /lpf U Epithel Cells (Auto) (0-5) /lpf Urine Bacteria (Auto) (Negative) SARS-CoV-2 (PCR) (Negative) Influenza Type A (PCR) (Neg) Influenza Type B (PCR) (Neg) RSV (RT-PCR) (Neg) 06/25/22 06/25/22 06/25/22 Range/Units 04:06 04:06 04:25 WBC (4.8-10.8) K/ul RBC (3.93-5.22) M/uL Hgb (12.0-16.0) g/dl Hct (34.1-44.9) % MCV (80.0-100.0) fL MCH (25.0-34.0) pg MCHC (32.0-36.0) g/dL RDW Std Deviation (36.4-46.3) fL RDW Coeff of Carter (11.5-14.5) % Plt Count (130-400) K/uL MPV (9.4-12.3) fL Immature Gran % (Auto) % Neut % (Auto) % Lymph % (Auto) % [place] % (Auto) % Eos % (Auto) % Baso % (Auto) % Neut # (Auto) (1.4-6.5) K/uL Lymph # (Auto) (1.2-3.4) K/uL [place] # (Auto) (0.24-0.82) K/uL Eos # (Auto) (0-0.50) K/uL Baso # (Auto) (0-0.2) K/uL Immature Gran # (Auto) (0.00-0.02) K/uL Sodium (136-145) mmol/L Potassium (3.5-5.1) mmol/L Chloride (98-107) mmol/L Carbon Dioxide (21-32) mmol/L Anion Gap (3-11) BUN (6-23) mg/dl Creatinine (0.6-1.2) mg/dl Est Cr Clr Drug Dosing Est GFR ( Amer) ml/min Est GFR (Non-Af Amer) ml/min BUN/Creatinine Ratio (10-20) Glucose (70-99(Fasting)) mg/dl Lactate (0.4-2.0) mmol/L Calcium (8.5-10.1) mg/dl Magnesium (1.7-2.4) mg/dl Total Bilirubin (0.2-1.0) mg/dl Direct Bilirubin (0-0.2) mg/dl AST (13-39) U/L ALT (7-52) U/L Alkaline Phosphatase (34-104) U/L Troponin I High Sens (0-14) pg/ml Total Protein (6.0-8.3) gm/dl Albumin (3.4-5.0) gm/dl Procalcitonin < 0.05 (0-0.5) ng/ml Urine Color Yellow Urine Appearance Cloudy A (Clear) Urine pH 5.5 (4.5-7.5) Ur Specific [place] 1.015 (1.000-1.030) Urine Protein 1+ H (Negative) Urine Glucose (UA) Negative (Negative) Urine Ketones Trace H (Negative) Urine Blood Trace H (Negative) Urine Nitrite Negative (Negative) Urine Bilirubin Negative (Negative) Urine Urobilinogen Negative (Negative) Ur Leukocyte Esterase 1+ H (Negative) Urine WBC (Auto) 10-30 H (0-5) /hpf Urine RBC (Auto) 0-4 (0-4) /hpf U Hyaline Cast (Auto) 5-10 H (0-5) /lpf U Epithel Cells (Auto) >30 H (0-5) /lpf Urine Bacteria (Auto) Negative (Negative) SARS-CoV-2 (PCR) NEGATIVE (Negative) Influenza Type A (PCR) Negative (Neg) Influenza Type B (PCR) Negative (Neg) RSV (RT-PCR) Negative (Neg) Imaging Data Attestation: I personally reviewed and interpreted this imaging study as fol lows: My Impression: Chest x-ray interpreted by me slight increased markings in the right lower lobe in comparison to prior x-rays ECG Data Attestation: I personally reviewed and interpreted this ECG as follows: Additional Comments: EKG interpreted by me normal sinus rhythm rate of 92 poor R wave progression the precordium no obvious ST segment elevation or depression there is a prolonged QTC of 526. MDM Narrative Medical decision making differential diagnosis includes sepsis, urinary tract infection, pneumonia, COVID, electrolyte abnormality, anxiety. Plan is to check sepsis protocol and observe Patient was evaluated for general malaise vomiting diaphoresis shaking chills and rigors. Patient has an elevated white blood cell count and elevated lactic acid and elevated troponin. I suspect that the patient has sepsis patient appears to have a right lower lobe pneumonia may have a urinary tract infection, patient's EKG is nonischemic. The concern is that the patient is septic however not septic shock. Patient received IV antibiotics. The case was discussed with the [facility] hospitalist for admission Impression & Plan Sepsis, Pneumonia, Elevated troponin, Acute UTI (urinary tract infection) Discharge Plan Visit Data Chief Complaint: Illness Stated Complaint: VOMIT,SWEAT,SHAKING,CANNOT SLEEP,CANNOT WALK ED Provider: Carlo Samuel Discharge Problem: Sepsis, Pneumonia, Elevated troponin, Acute UTI (urinary tract infection) Patient Disposition: Being Evaluated by Hospitalist Forms Stand Alone Forms: [facility] Prescriptions Prescriptions: No Action hydrochlorothiazide 25 mg tablet 12.5 mg PO .SUN/SUN/SUN tamoxifen 20 mg tablet 20 mg PO DAILY levothyroxine 200 mcg tablet See Rx Instructions .ROUTE .COMPLEX Rx Instructions: take 1 tablet orally 5 days per week, take 1/2 tablet on ,skip any thyroid meds on mondays multivitamin Tablet 1 tab PO QDL ketoconazole 2 % cream 1 applic TOPICAL HS Rx Instructions: apply to face fluticasone propionate [Flonase Allergy Relief] 50 mcg/actuation [place],Suspension 2 spray INTRANASAL QAM PRN (Reason: as directed) ascorbic acid (vitamin C) [Vitamin C] 1,000 mg Tablet 1,000 mg PO QAM vitamin B complex Tablet 1 tab PO QAM cholecalciferol (vitamin D3) [Vitamin D3] 25 mcg (1,000 unit) Tablet 25 mcg PO QAM Eliquis 2.5 mg Tablet 2.5 mg PO BID Qty: 60 0RF lisinopril 10 mg tablet 10 mg PO QAM metoprolol succinate 25 mg tablet extended release 24 hr 25 mg PO AMHS estradiol 0.01 % (0.1 mg/gram) cream 1 applic VAGINAL 3XWK ketoconazole 2 % Shampoo 1 ea TOPICAL 3XWK Rx Instructions: apply to scalp when washing hair up to 3 times per week spironolactone 25 mg tablet 12.5 mg PO DAILY timolol maleate 0.5 % drops 1 drp OPR BID magnesium oxide 400 mg magnesium Capsule 400 mg PO QAM calcium carbonate [Calcium 600] 600 mg calcium (1,500 mg) Tablet 600 mg PO TIDM potassium chloride 20 mEq Packet 20 meq PO DAILY Saccharomyces boulardii [Florastor] 250 mg capsule 250 mg PO BID Qty: 20 0RF Rx Instructions: swallow whole triamcinolone acetonide 0.1 % Ointment 0.1 applic topical 2XWK tacrolimus 0.03 % Ointment 1 applic TOPICAL BID Referrals Referrals: Bijan Barakat MD [Primary Care Provider] -
[2022-06-25 04:27] LABS: Basophils # (auto) 0.02 K/uL (0-0.2); Basophils % (auto) 0.1 %; Eosinophils # (auto) 0.01 K/uL (0-0.50); Eosinophils % (auto) 0.1 %; Hematocrit (blood only) 42.4 % (34.1-44.9); Hemoglobin 14.4 g/dl (12.0-16.0); Immature Granulocytes # (auto) 0.09 K/uL (0.00-0.02); Immature Granulocytes % (auto) 0.6 %; Lymphocytes # (auto) 1.13 K/uL (1.2-3.4); Lymphocytes % (auto) 7.6 %; Mean Corpuscular Hemoglobin 32.4 pg (25.0-34.0); Mean Corpuscular Volume 95.5 fL (80.0-100.0); Mean Platelet Volume 9.8 fL (9.4-12.3); Neutrophils # (auto) 13.01 K/uL (1.4-6.5); Neutrophils % (auto) 87.6 %; Platelet Count 201 K/uL (130-400); RDW Coefficient of Variation 12.3 % (11.5-14.5); RDW Standard Deviation 43.4 fL (36.4-46.3); Red Blood Count 4.44 M/uL (3.93-5.22); White Blood Count 14.86 K/ul (4.8-10.8)
[2022-06-25 04:56] LABS: Appearance Urine Cloudy (Clear); Bacteria Urine Automated Negative (Negative); Bilirubin Urine Negative (Negative); Blood Urine Trace (Negative); Color Urine Yellow; Epithelial Cell Urine Auto >30 /lpf (0-5); Glucose Urine UA Negative (Negative); Ketones Urine Trace (Negative); Leukocyte Esterase Urine 1+ (Negative); Nitrite Urine Negative (Negative); Protein Urine 1+ (Negative); RBC Urine Automated 0-4 /hpf (0-4); Specific Gravity Urine 1.015 (1.000-1.030); Urobilinogen Urine Negative (Negative); pH Urine 5.5 (4.5-7.5)
[2022-06-25 05:02] LABS: Alanine Aminotransferase 23 U/L (7-52); Albumin Level 4.2 gm/dl (3.4-5.0); Alkaline Phosphatase 33 U/L (34-104); Anion Gap 12 (3-11); Aspartate Aminotransferase 44 U/L (13-39); BUN Creatinine Ratio 28.3 (10-20); Bilirubin Direct 0.1 mg/dl (0-0.2); Bilirubin,Total 0.8 mg/dl (0.2-1.0); Blood Urea Nitrogen 30 mg/dl (6-23); Calcium 9.2 mg/dl (8.5-10.1); Carbon Dioxide 24 mmol/L (21-32); Chloride 101 mmol/L (98-107); Est GFR (African American) 56.2 ml/min; Est GFR (Non-African American) 48.5 ml/min; Glucose 165 mg/dl (70-99(Fasting)); Magnesium 2.3 mg/dl (1.7-2.4); Potassium 4.2 mmol/L (3.5-5.1); Sodium 137 mmol/L (136-145)
[2022-06-25] MEDS ORDERED: cefTRIAXone SODIUM 1,000 MG/50 ML BAG IV STA (05:05)
[2022-06-25 05:30] LABS: Influenza A virus by PCR Negative (Neg); Influenza B virus by PCR Negative (Neg); RSV by PCR Negative (Neg); SARS CoV2 RNA(COVID-19)Cepheid NEGATIVE (Negative)
[2022-06-25 05:45] LABS: Troponin I High Sensitivity 1790.4 pg/ml (0-14)
[2022-06-25] MEDS ORDERED: AZITHROMYCIN 500 MG in DEXTROSE 5% 250 ML IV ONE (05:47)
[2022-06-25] MEDS ORDERED: SODIUM CHLORIDE 0.9% 1000ML 1,000 ML IV ONE (05:47)
[2022-06-25] MEDS ORDERED: ASPIRIN CHEW 324 MG PO STA (05:47)
[2022-06-25] MEDS ORDERED: ONDANSETRON INJ 2 MG/ML 2 ML VIAL IV STA (05:52)
[2022-06-25] MEDS ORDERED: LACTATED RINGER'S 1,000 ML IV ONE (05:59)
[2022-06-25] MEDS ORDERED: CEFEPIME 2,000 MG/20 ML VIAL IV STA (06:41)
--- NOTE | 2022-06-25 06:42 | History & Physical Report ---
Date of Service June 25, 2022 Assessment & Plan (1) Acute hypoxemic respiratory failure: Plan: Decompensated heart failure hx diastolic dysfunction History of valvular heart disease (moderate to severe TR, mild MR/AR) Secondary to severe sepsis (SIRS plus lactic acidosis secondary to complicated UTI) Rule out pulmonary embolism missed NOAC doses Troponin elevation secondary to illness Abdominal pain secondary to UTI rule out bleed given Eliquis Rx for PAF hx PVD hypertension, stable hyperlipidemia on statin Rx hypothyroidism, euthyroid as of last month's TSH left breast cancer status post surgery, radiation on Tamoxifen Rx Hyperglycemia rule out DM Supplemental O2 Lasix albumin given equivocal volume status Stat neb treatment CT chest PE study Follow lactic acid Follow CS, Cefepime Follow troponin TTE if with progression CT abdomen pelvis Re: Abdominal pain N.p.o., hold Eliquis until CT results known Check hemoglobin A1c DVT prophylaxis. SCDs while Eliquis on hold Full code Total critical care time was 40 minutes. Patient requesting updates for providers. Mr. Jam Khoury, contact #[phone]. Text document was generated using [employer] voice recognition software. It may contain grammatical or spelling errors. Kindly contact undersigned for clarification of any documentation item in question. History of Present Illness Chief Complaint: Abdominal pain, shortness of breath, weakness Primary Care Provider: Bijan Barakat MD History obtained from patient, family, and records. Medical history significant for chronic diastolic heart failure (EF 50%, TTE 2021), A. fib on Eliquis, PVD, valvular heart disease (moderate to severe TR, mild MR/AR ), hypertension, hyperlipidemia, hypothyroidism, left breast cancer status post surgery, radiation on tamoxifen Rx, pulmonary nodules as per records. Last confinement January 2020 for A. fib with RVR and Lyme disease status post doxycycline Rx. Last ER visit April 2022 for hot flashes and sweating attributed to UTI. Patient incidentally took 's energy medication prior to illness. Yesterday morning, patient took 's energy medication for the second time. Later in the afternoon, patient felt sick. Achy central abdominal discomfort going to the chest with dysuria, chills. Shortness of breath without cough symptoms. Denies fluid retention. Subsequent bilious emesis without diarrhea. No chest pain. No headache. Patient admits to missing Eliquis doses from time to time. Patient completed COVID-19 vaccination. Patient brought by to the ER. NSS bolus, IV ceftriaxone given for possible sepsis. Patient later noted by ED RN to have crackly lung sounds. O2 sats 92 on 3 L. 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 Allergies Allergy/AdvReac Type Severity Reaction Status Date / Time alendronate sodium Allergy Intermediate RASH Verified 06/25/22 06:24 Home Medications Medication Instructions Recorded Confirmed Type fluticasone propionate 50 2 spray intranasal QAM PRN as 01/24/20 06/25/22 History mcg/actuation nasal directed spray,suspension (Flonase Allergy Relief) ketoconazole 2 % topical cream 1 applic topical HS 01/24/20 06/25/22 History levothyroxine 200 mcg tablet See Rx Instructions .Route .COMPLEX 01/24/20 06/25/22 History multivitamin 1 tab PO QDL 01/24/20 06/25/22 History ascorbic acid (vitamin C) 1,000 mg 1,000 mg PO QAM 02/12/20 06/25/22 History tablet (Vitamin C) cholecalciferol (vitamin D3) 25 25 mcg PO QAM 02/12/20 06/25/22 History mcg (1,000 unit) tablet (Vitamin D3) vitamin B complex 1 tab PO QAM 02/12/20 06/25/22 History apixaban 2.5 mg tablet (Eliquis) 2.5 mg PO BID #60 tabs 02/14/20 06/25/22 Rx hydrochlorothiazide 25 mg tablet 12.5 mg PO .MON/SUN/Sun07/27/20 06/25/22 History tamoxifen 20 mg tablet 20 mg PO DAILY 02/23/21 06/25/22 History calcium carbonate 600 mg calcium 600 mg PO TIDM 05/03/22 06/25/22 History (1,500 mg) tablet (Calcium) estradiol 0.01% (0.1 mg/gram) 1 applic vaginal 3XWK 05/03/22 06/25/22 History vaginal cream ketoconazole 2 % shampoo 1 ea topical 3XWK 05/03/22 06/25/22 History lisinopril 10 mg tablet 10 mg PO QAM 05/03/22 06/25/22 History magnesium oxide 400 mg PO QAM 05/03/22 06/25/22 History metoprolol succinate 25 mg 25 mg PO AMHS 05/03/22 06/25/22 History tablet,extended release 24 hr potassium chloride 20 mEq oral 20 meq PO DAILY 05/03/22 06/25/22 History packet spironolactone 25 mg tablet 12.5 mg PO DAILY 05/03/22 06/25/22 History timolol maleate 0.5 % eye drops 1 drp OPR BID 05/03/22 06/25/22 History Saccharomyces boulardii 250 mg 250 mg PO BID #20 caps 05/04/22 06/25/22 Rx capsule (Florastor) tacrolimus 0.03 % topical ointment 1 applic topical BID 06/25/22 06/25/22 History triamcinolone acetonide 0.1 % 0.1 applic topical 2XWK 06/25/22 06/25/22 History topical ointment Past Med/Surg History Medical History Atrial fibrillation with rapid ventricular response Chest pain Diffuse cystic mastopathy Elevated d-dimer GERD (gastroesophageal reflux disease) History of small bowel obstruction History of ventral hernia repair Hypertension Hypothyroidism Lateral meniscus tear Lyme disease 01/2020 Mitral valve regurgitation Osteoporosis SOB (shortness of breath) Subacute bacterial endocarditis Temporomandibular disorder Surgical History History of breast biopsy Late 70's/early 80's - Benign History of cataract surgery (2013) History of colonoscopy 05/29/2014, 03/27/2017 History of esophagogastroduodenoscopy (EGD) (03/27/17) History of esophagogastroduodenoscopy (EGD) (03/15/15) with Endoscopic US History of left breast biopsy (06/01/20) History of lumpectomy of left breast (06/30/20) + SLN Biopsy (positive for invasive carcinoma) History of right breast biopsy (09/19/05) History of surgery (03/14/06) Closure colostomy, cholecystectomy, cholangiogram, incidental appendectomy (Dr. Reynolds) Status post appendectomy (03/14/06) Status post cholecystectomy (03/14/06) Status post hernia repair (05/01/07) Status post partial colectomy (12/02/05) "bowel perforation" Status post partial thyroidectomy Status post tonsillectomy as a child Family History Father , Passed age 84 of CHF No problems noted. Mother , Passed age 84 of Alzheimer's complications No problems noted. Aunt , (Paternal) Passed in mid 70's of unknown cancer No problems noted. Brother , Passed age 65 diabetes complications No problems noted. Daughter No problems noted. Daughter No problems noted. Daughter No problems noted. Son No problems noted. 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 Other Information That Helps Us Care for You: No Feels Safe at Home: Yes Safety Concerns: Feels Safe At This Time Childhood Exposure to Second-Hand Smoke: No caffeine: Yes (Tea 2 cups/day, 0.5 cups of coffee/day ) during the past year weight has: decreased > 10 lbs Dental Care, Regularly: Yes Assistive Devices: Cane Assistive Devices Comment: Uses cane for longer distances Review of Systems Review of Systems: As per HPI, all other systems reviewed and negative Physical Exam Physical Exam: GENERAL: uncomfortable, frail, looks younger for stated age, no respiratory distress SKIN: Normal color, warm HEENT: [place] palpebral conjunctivae, no ptosis, dry buccal mucosa, nasal cannula in place NECK : Supple, no tenderness CHEST : Decreased breath sounds, no tenderness HEART : RRR, systolic murmur ABDOMEN: Some distention, epigastric tenderness EXTREMITIES : Minimal LE swelling, no LE tenderness, no other conspicuous deformities noted NEUROLOGIC : Coherent, no facial asymmetry, no other gross focality Results & Data Results & Data ([facility]) Vital Signs (Past 12 Hours) Vital Signs Temp Pulse Resp BP Pulse Ox O2 Del Method 06/25/22 04:12 97 Room Air 06/25/22 03:36 37.2 C 93 H 24 134/100 92 Room Air Laboratory Results Laboratory Results WBC 14.86 K/ul (4.8-10.8) H 06/25/22 04:06 RBC 4.44 M/uL (3.93-5.22) 06/25/22 04:06 Hgb 14.4 g/dl (12.0-16.0) 06/25/22 04:06 Hct 42.4 % (34.1-44.9) 06/25/22 04:06 MCV 95.5 fL (80.0-100.0) 06/25/22 04:06 MCH 32.4 pg (25.0-34.0) 06/25/22 04:06 MCHC 34.0 g/dL (32.0-36.0) 06/25/22 04:06 RDW Std Deviation 43.4 fL (36.4-46.3) 06/25/22 04:06 RDW Coeff of Carter 12.3 % (11.5-14.5) 06/25/22 04:06 Plt Count 201 K/uL (130-400) 06/25/22 04:06 MPV 9.8 fL (9.4-12.3) 06/25/22 04:06 Immature Gran % (Auto) 0.6 % 06/25/22 04:06 Neut % (Auto) 87.6 % 06/25/22 04:06 Lymph % (Auto) 7.6 % 06/25/22 04:06 [place] % (Auto) 4.0 % 06/25/22 04:06 Eos % (Auto) 0.1 % 06/25/22 04:06 Baso % (Auto) 0.1 % 06/25/22 04:06 Neut # (Auto) 13.01 K/uL (1.4-6.5) H 06/25/22 04:06 Lymph # (Auto) 1.13 K/uL (1.2-3.4) L 06/25/22 04:06 [place] # (Auto) 0.60 K/uL (0.24-0.82) 06/25/22 04:06 Eos # (Auto) 0.01 K/uL (0-0.50) 06/25/22 04:06 Baso # (Auto) 0.02 K/uL (0-0.2) 06/25/22 04:06 Immature Gran # (Auto) 0.09 K/uL (0.00-0.02) H 06/25/22 04:06 Sodium 137 mmol/L (136-145) 06/25/22 04:06 Potassium 4.2 mmol/L (3.5-5.1) 06/25/22 04:06 Chloride 101 mmol/L (98-107) 06/25/22 04:06 Carbon Dioxide 24 mmol/L (21-32) 06/25/22 04:06 Anion Gap 12 (3-11) H 06/25/22 04:06 BUN 30 mg/dl (6-23) H 06/25/22 04:06 Creatinine 1.06 mg/dl (0.6-1.2) 06/25/22 04:06 Est Cr Clr Drug Dosing Not Reportable 06/25/22 04:06 Est GFR ( Amer) 56.2 ml/min 06/25/22 04:06 Est GFR (Non-Af Amer) 48.5 ml/min 06/25/22 04:06 BUN/Creatinine Ratio 28.3 (10-20) H 06/25/22 04:06 Glucose 165 mg/dl (70-99(Fasting)) H 06/25/22 04:06 Lactate 3.8 mmol/L (0.4-2.0) H* 06/25/22 04:06 Calcium 9.2 mg/dl (8.5-10.1) 06/25/22 04:06 Magnesium 2.3 mg/dl (1.7-2.4) 06/25/22 04:06 Total Bilirubin 0.8 mg/dl (0.2-1.0) 06/25/22 04:06 Direct Bilirubin 0.1 mg/dl (0-0.2) 06/25/22 04:06 AST 44 U/L (13-39) H 06/25/22 04:06 ALT 23 U/L (7-52) 06/25/22 04:06 Alkaline Phosphatase 33 U/L (34-104) L 06/25/22 04:06 Troponin I High Sens 1790.4 pg/ml (0-14) H* 06/25/22 04:06 Total Protein 7.0 gm/dl (6.0-8.3) 06/25/22 04:06 Albumin 4.2 gm/dl (3.4-5.0) 06/25/22 04:06 Procalcitonin < 0.05 ng/ml (0-0.5) 06/25/22 04:06 Urine Color Yellow 06/25/22 04:25 Urine Appearance Cloudy (Clear) A 06/25/22 04:25 Urine pH 5.5 (4.5-7.5) 06/25/22 04:25 Ur Specific [place] 1.015 (1.000-1.030) 06/25/22 04:25 Urine Protein 1+ (Negative) H 06/25/22 04:25 Urine Glucose (UA) Negative (Negative) 06/25/22 04:25 Urine Ketones Trace (Negative) H 06/25/22 04:25 Urine Blood Trace (Negative) H 06/25/22 04:25 Urine Nitrite Negative (Negative) 06/25/22 04:25 Urine Bilirubin Negative (Negative) 06/25/22 04:25 Urine Urobilinogen Negative (Negative) 06/25/22 04:25 Ur Leukocyte Esterase 1+ (Negative) H 06/25/22 04:25 Urine WBC (Auto) 10-30 /hpf (0-5) H 06/25/22 04:25 Urine RBC (Auto) 0-4 /hpf (0-4) 06/25/22 04:25 U Hyaline Cast (Auto) 5-10 /lpf (0-5) H 06/25/22 04:25 U Epithel Cells (Auto) >30 /lpf (0-5) H 06/25/22 04:25 Urine Bacteria (Auto) Negative (Negative) 06/25/22 04:25 SARS-CoV-2 (PCR) NEGATIVE (Negative) 06/25/22 04:06 Influenza Type A (PCR) Negative (Neg) 06/25/22 04:06 Influenza Type B (PCR) Negative (Neg) 06/25/22 04:06 RSV (RT-PCR) Negative (Neg) 06/25/22 04:06 Diagnostic Findings Chest x-ray as per interpretation cardiomegaly, congestion EKG as per my interpretation : Rate 90, NSR, RAD, septal infarct, diffuse T wave abnormalities, low voltage
[2022-06-25] MEDS ORDERED: traMADol HCL 50 MG TABLET PO PRN (06:47)
[2022-06-25] MEDS ORDERED: PROMETHAZINE HCL 6.25 MG in SODIUM CHLORIDE 0.9% 50 ML IV PRN (06:47)
[2022-06-25] MEDS ORDERED: XOPENEX/ATROVENT 1.25mg/0.5MG NEB COMBO NEB STA (06:49)
[2022-06-25] MEDS ORDERED: LEVALBUTEROL 1.25MG/0.5ML NEB INH STA (06:53)
[2022-06-25] MEDS ORDERED: IPRATROPIUM BROMIDE NEB SOLN 0.02% 2.5 ML VIAL INH STA (06:53)
--- NOTE | 2022-06-25 07:17 | XRay Report ---
XR chest 1V portable CLINICAL HISTORY: Hypoxia. COMPARISON STUDY: Chest CT February 12, 2020. Chest radiograph June 25, 2022 at 4:02 AM. FINDINGS: There is no pneumothorax. Suspected small bilateral pleural effusions are present. Pulmonar y edema has progressed. Moderate cardiomegaly is noted. IMPRESSION: Cardiomegaly. Progression of pulmonary edema with small bilateral pleural effusions. ACT 112: Negative or not required by law. Electronically signed by: Ben Thumran M.D. 06/25/2022 7:15 AM
[2022-06-25] MEDS ORDERED: ALBUMIN 25% 100 mL 25 GM/100 ML VIAL IV SCH (07:30)
[2022-06-25] MEDS ORDERED: FUROSEMIDE INJ 20 MG/2 ML VIAL IV SCH (07:30)
--- NOTE | 2022-06-25 07:36 | XRay Report ---
XR chest 1V portable CLINICAL HISTORY: Sepsis. COMPARISON STUDY: Chest radiograph May 03, 2022. FINDINGS: There is no pneumothorax. Small bilateral pleural effusions are present. Interstitial thick ening represents pulmonary edema. Cardiomegaly is noted. Possible left basilar opacity is likely sandra factual. IMPRESSION: Interval development of pulmonary edema with small bilateral pleural effusions. ACT 112: Negative or not required by law. Electronically signed by: Ben Thurman M.D. 06/25/2022 7:35 AM
[2022-06-25] MEDS ORDERED: OPTIRAY 320 500ml IV ONE (08:12)
[2022-06-25 08:14] LABS: Partial Thromboplastin Time 26.4 Seconds (21.0-31.0)
--- NOTE | 2022-06-25 08:23 | CT Scan Report ---
CT ANGIOGRAPHY OF THE CHEST, PULMONARY EMBOLUS PROTOCOL CLINICAL HISTORY: Shortness of breath. Evaluate for pulmonary embolus. COMPARISON STUDY: Chest CT February 12, 2020 and chest radiograph performed earlier today. TECHNIQUE: Following IV administration of 118 mL of Optiray, helical axial images of the chest were o btained utilizing the pulmonary embolus protocol. Maximal intensity projections and sagittal and cor onal reformats were viewed on an independent 3D workstation. IV contrast was administered without co mplication. Automated exposure control was utilized for the study. A dose lowering technique was ut ilized adhering to the principles of ALARA. CT DOSE: 492.34 mGy.cm FINDINGS: No pulmonary emboli are identified. There is mild dilatation of the central pulmonary opal manuel. Moderate cardiomegaly is noted. There is no pericardial effusion. Small to moderate right and s mall left pleural effusions are present. There is no pneumothorax. Lungs are suboptimally assessed du e to respiratory motion. Moderate interstitial pulmonary edema is noted with interlobular septal thic kening. Multifocal airspace opacities within the lungs are also present. Bronchial wall thickening ma y be related to pulmonary edema. Abdomen and pelvis CT will be reported separately. IMPRESSION: 1. No pulmonary emboli identified. 2. Moderate interstitial pulmonary edema. Multifocal airspace opacities within lungs favor alveolar p ulmonary edema however pneumonia could appear similar. 3. Small to moderate right and small left pleural effusions. ACT 112: Negative or not required by law. Electronically signed by: Ben Thurman M.D. 06/25/2022 8:21 AM
[2022-06-25 08:29] LABS: Troponin I High Sensitivity 1623.5 pg/ml (0-14)
[2022-06-25] MEDS ORDERED: FLUTICASONE PROPIONATE NA SPR 16 GM BTL PRN (08:41)
[2022-06-25] MEDS ORDERED: ACETAMINOPHEN 325 MG TAB PO PRN (08:41)
--- NOTE | 2022-06-25 08:41 | CT Scan Report ---
CT OF THE ABDOMEN AND PELVIS WITH CONTRAST CLINICAL HISTORY: Abdominal pain. COMPARISON STUDY: CT of the abdomen and pelvis September 12, 2018 and MRI of the abdomen March 27 9. TECHNIQUE: Following IV administration of 117 mL of Optiray, axial images of the abdomen and pelvis w ere obtained from the lung bases to the proximal femurs. Images were reviewed in the axial, sagittal, and coronal planes. IV contrast was administered without complication. Automated exposure control w as utilized for the study. A dose lowering technique was utilized adhering to the principles of POLLO Peterson. FINDINGS: Please note that the chest CT will be reported separately. Exam is mildly compromised by mo tion artifact. Note is made of cardiomegaly with small to moderate right and small left pleural effus ions. No pneumatosis, free air or portal venous gas is present. There is a 1.8 cm lateral segment hep atic cyst. There is no biliary ductal dilatation status post cholecystectomy. Subcentimeter cystic le carmen within the uncinate process remains unchanged. Spleen and adrenal glands are unremarkable. There are striated bilateral nephrograms, more pronounced on the left. Moderate left and mild right renal cortical thinning is present. There is no renal abscess. There is no evidence for a bowel obstruction . Ventral hernia repair with mesh is noted. The endometrium appears thickened, measuring approximatel y 1.8 cm in thickness. Caliber and wall thickness of small and large bowel are normal. There is no as cites or lymphadenopathy. No acute fracture or suspicious lesion within the visualized skeletal struc tures is present. IMPRESSION: 1. Striated bilateral nephrograms. This may reflect bilateral pyelonephritis. However, the appearance is nonspecific and other etiologies such as glomerulonephritis or renal infarcts are also within the differential. No renal abscess. No hydronephrosis. 2. No bowel obstruction. No bowel wall thickening. 3. Apparent endometrial thickening. Correlation with history of postmenopausal bleeding and nonemerge nt pelvic ultrasound is recommended. 4. Small to moderate right and small left pleural effusions with cardiomegaly and interstitial pulmon danay edema. ACT 112: Negative or not required by law. Electronically signed by: Ben Thurman M.D. 06/25/2022 8:39 AM
[2022-06-25] MEDS ORDERED: lisinopril 10 MG TAB PO SCH (09:00)
[2022-06-25] MEDS: TAMOXIFEN CITRATE 10 MG TABLET PO SCH (09:11)
[2022-06-25] MEDS: METOPROLOL SUCC 25MG EXT REL TAB PO SCH ×2 (09:11→20:52)
[2022-06-25] MEDS: hydrOXYzine HCl 10 MG TAB PO PRN ×2 (09:15→16:24)
[2022-06-25] MEDS: LEVOTHYROXINE SODIUM 200 MCG TABLET PO SCH (10:00)
[2022-06-25] MEDS: TIMOLOL MALEATE 0.5% OP SOLN 5 ML BTL OP SCH ×2 (10:00→20:53)
[2022-06-25] MEDS: VITAMIN B COMPLEX TAB PO SCH (10:03)
--- NOTE | 2022-06-25 11:25 | Cardiology Consultation ---
Date of Consultation June 25, 2022 Assessment & Plan (1) PAF (paroxysmal atrial fibrillation): (2) Acute hypoxemic respiratory failure: (3) Elevated troponin: (4) Acute UTI (urinary tract infection): (5) Malignant neoplasm of central portion of left breast in female, estrogen receptor positive: Plan It was my pleasure to see Mrs. Khoury in cardiac consultation today. Her presenting symptoms are atypical for that of unstable angina but 2D echocardiogram does reveal severely reduced LV systolic function with an apical ballooning pattern. Differential diagnosis would be Takotsubo cardiomyopathy versus left main disease. Dimple has a history of tachycardia induced cardiomyopathy but is remained in normal sinus rhythm with a normal underlying right bundle branch block pattern. Ischemic evaluation should be considered once her underlying sepsis improves. Significant bilateral pleural effusions so we will increase diuretic to 40 mg IV twice daily Electrolytes and renal function should be followed and repleted as necessary. Strict I's and O's along with daily weights Beta-david should be continued uninterrupted but lisinopril may be held if any signs of hypotension Continue to monitor on telemetry Recommend discussion with the patient and family on goals of care and CODE STATUS given her frail baseline History of Present Illness Reason for Consultation: CHF Requesting Physician: DUONG Attending Physician: Elias Castellon MD History of Present Illness It was my pleasure to see Mrs. Khoury in cardiac consultation today. She is a very pleasant 82-year-old woman who follows with our cardiology practice for history of paroxysmal atrial fibrillation, frequent PVCs and history of tachycardia induced cardiomyopathy. She presented to [facility] on 06/24/2022 with complaints of abdominal pain, dysuria, shortness of rose ath and myalgias. She states that she had not been feeling well for the last 2 days. She denies any chest pain or palpitations. She states that she has been compliant with her medications at home but admits that she has missed occasional doses of Eliquis. Past medical history: 1. Paroxysmal atrial fibrillation, [id number] score of 4 (age1, female, CHF), on Eliquis, dose adjusted a. No evidence of atrial fibrillation per Zio monitor 10/2021 2. H/o Lyme disease, 01/2020 3. 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 14% burden 03/2018 per Zio monitor b. 31% burden for 10/2021 per Zio monitor 5. Left breast carcinoma status post radiation therapy- summer Allergies Allergy/AdvReac Type Severity Reaction Status Date / Time alendronate sodium Allergy Intermediate RASH Verified 06/25/22 06:24 Home Medications Medication Instructions Recorded Confirmed Type fluticasone propionate 50 2 spray intranasal QAM PRN as 01/24/20 06/25/22 History mcg/actuation nasal directed spray,suspension (Flonase Allergy Relief) ketoconazole 2 % topical cream 1 applic topical HS 01/24/20 06/25/22 History levothyroxine 200 mcg tablet See Rx Instructions .Route .COMPLEX 01/24/20 06/25/22 History multivitamin 1 tab PO QDL 01/24/20 06/25/22 History ascorbic acid (vitamin C) 1,000 mg 1,000 mg PO QAM 02/12/20 06/25/22 History tablet (Vitamin C) cholecalciferol (vitamin D3) 25 25 mcg PO QAM 02/12/20 06/25/22 History mcg (1,000 unit) tablet (Vitamin D3) vitamin B complex 1 tab PO QAM 02/12/20 06/25/22 History apixaban 2.5 mg tablet (Eliquis) 2.5 mg PO BID #60 tabs 02/14/20 06/25/22 Rx hydrochlorothiazide 25 mg tablet 12.5 mg PO .MON/WED/FRI 07/27/20 06/25/22 History tamoxifen 20 mg tablet 20 mg PO DAILY 02/23/21 06/25/22 History calcium carbonate 600 mg calcium 600 mg PO TIDM 05/03/22 06/25/22 History (1,500 mg) tablet (Calcium) estradiol 0.01% (0.1 mg/gram) 1 applic vaginal 3XWK 05/03/22 06/25/22 History vaginal cream ketoconazole 2 % shampoo 1 ea topical 3XWK 05/03/22 06/25/22 History lisinopril 10 mg tablet 10 mg PO QAM 05/03/22 06/25/22 History magnesium oxide 400 mg PO QAM 05/03/22 06/25/22 History metoprolol succinate 25 mg 25 mg PO AMHS 05/03/22 06/25/22 History tablet,extended release 24 hr potassium chloride 20 mEq oral 20 meq PO DAILY 05/03/22 06/25/22 History packet spironolactone 25 mg tablet 12.5 mg PO DAILY 05/03/22 06/25/22 History timolol maleate 0.5 % eye drops 1 drp OPR BID 05/03/22 06/25/22 History Saccharomyces boulardii 250 mg 250 mg PO BID #20 caps 05/04/22 06/25/22 Rx capsule (Florastor) tacrolimus 0.03 % topical ointment 1 applic topical BID 06/25/22 06/25/22 History triamcinolone acetonide 0.1 % 0.1 applic topical 2XWK 06/25/22 06/25/22 History topical ointment Patient History Medical History Atrial fibrillation with rapid ventricular response Chest pain Diffuse cystic mastopathy Elevated d-dimer GERD (gastroesophageal reflux disease) History of small bowel obstruction History of ventral hernia repair Hypertension Hypothyroidism Lateral meniscus tear Lyme disease 01/2020 Mitral valve regurgitation Osteoporosis SOB (shortness of breath) Subacute bacterial endocarditis Temporomandibular disorder Surgical History History of breast biopsy Late 70's/early 80's - Benign History of cataract surgery (2013) History of colonoscopy 05/29/2014, 03/27/2017 History of esophagogastroduodenoscopy (EGD) (03/27/17) History of esophagogastroduodenoscopy (EGD) (03/15/15) with Endoscopic US History of left breast biopsy (06/01/20) History of lumpectomy of left breast (06/30/20) + SLN Biopsy (positive for invasive carcinoma) History of right breast biopsy (09/19/05) History of surgery (03/14/06) Closure colostomy, cholecystectomy, cholangiogram, incidental appendectomy (Dr. Reynolds) Status post appendectomy (03/14/06) Status post cholecystectomy (03/14/06) Status post hernia repair (05/01/07) Status post partial colectomy (12/02/05) "bowel perforation" Status post partial thyroidectomy Status post tonsillectomy as a child Family History Father , Passed age 84 of CHF No problems noted. Mother , Passed age 84 of Alzheimer's complications No problems noted. Aunt , (Paternal) Passed in mid 70's of unknown cancer No problems noted. Brother , Passed age 65 diabetes complications No problems noted. Daughter No problems noted. Daughter No problems noted. Daughter No problems noted. Son No problems noted. Denies family history of Stroke Social History Smoking Status: Never smoker Second Hand Exposure: No; Hx Alcohol Use: No Hx Substance Use: No Preferred Language: Brazilian Communication Ability: Effective Visual Impairment: Limited Hearing Ability: Hard of Hearing Metal Furrer Required: No Beliefs That Will Affect Care: None marital status: Current Living Situation: Spouse current occupational status: retired current occupation: Retired [employer] Other Information That Helps Us Care for You: No Feels Safe at Home: Yes Safety Concerns: Feels Safe At This Time Childhood Exposure to Second-Hand Smoke: No caffeine: Yes (Tea 2 cups/day, 0.5 cups of coffee/day ) during the past year weight has: decreased > 10 lbs Dental Care, Regularly: Yes Assistive Devices: Cane Assistive Devices Comment: Uses cane for longer distances Review of Systems Review of Systems: All systems reviewed & are unremarkable except as noted in HPI & below Physical Exam Physical Exam: General: Awake, alert and oriented x 3. Mild conversational d yspnea on oxygen mask. Patient is very ill and frail in appearance. HEENT: Normocephalic, atraumatic. Pupils equal, round and reactive to light and accommodation. Extraocular muscles are intact. Anicteric sclera. Moist mucous membranes. Neck: No JVD. No bruit. Cardiovascular: Regular. Positive S-4. Normal S-1 and S-2. No S-3. 3/6 holosystolic ejection murmur, left sternal border, mid-clavicular line with radiation to the axilla. No rubs. Pulmonary: Poor air movement with diffuse rhonchi and bibasilar rales Abdomen: Bowel sounds x 4, soft. No rebound, guarding or tenderness. No organomegaly. Extremities: No clubbing, cyanosis or edema. +2 pedal pulses bilaterally. Skin: Warm and dry. Results & Data ([facility]) Vital Signs (Past 12 Hours) Vital Signs Temp Pulse Pulse Resp BP BP Pulse Ox 06/25/22 10:17 90 06/25/22 09:51 105 H 06/25/22 08:41 06/25/22 07:12 36.5 C 103 H 20 120/92 94 06/25/22 04:12 97 06/25/22 03:36 37.2 C 93 H 24 134/100 92 O2 Del Method O2 Flow Rate 06/25/22 10:17 Oxymask 11 06/25/22 09:51 06/25/22 08:41 Oxymask 8 06/25/22 07:12 Nasal Cannula 4 06/25/22 04:12 Room Air 06/25/22 03:36 Room Air Diagnostic Findings Echocardiogram: 01/02/2022: The rhythm during the transthoracic echo examination was sinus with frequent premature ventricular complexes. The qualitative LV ejection fraction is 50-54% (normal). There is borderline diffuse left ventricular hypokinesis. Moderate aortic valve sclerosis is present. Mild aortic valve regurgitation is present. There is borderline mitral valve prolapse present. Mild mitral regurgitation is present. Moderate to severe tricuspid regurgitation. There is no evidence of pulmonary hypertension. Compared to last available study changes are noted as follows: Moderate to severe tricuspid regurgitation now present. 03/19/2020: The left ventricular cavity size is normal. The LV wall thickness is mildly increased (concentric). There is borderline diffuse left ventricular hypokinesis. The qualitative LV ejection fraction is 50-54% (normal). Moderate aortic valve sclerosis is present. Mild aortic valve regurgitation is present. The left atrium is moderately enlarged (42-48 ml/m^2). Moderate mitral regurgitation is present. Moderate tricuspid regurgitation is present. The estimated pulmonary artery systolic pressure is 36mm Hg. 02/12/2020: EF 20-25% LA moderately dilated RA mildly dilated AV sclerosis no Mild AI Moderate MR Severe TR DSE 03/07/2006: sub optimal on 75% MPHR No wall motion abnormalities EF 55% ECGS: 12/29/2021: SR 79bpm PVC in bigeminy QRs 456ms 11/25/2021: SB 54bpm QTc 451ms 11/07/2021: SR 68bpm 1st degree AV block PVC in bigeminy 10/05/2021: SB 78bpm 1st degree AV block PVC 02/27/2020: SR 65bpm PVC in bigeminy 02/12/2020: AF 134bpm 04/03/2018: SR 76bpm APC 05/29/2014: SB 55bpm 04/15/2007: SB 01/09/2006: SR 63bpm 10/18/2005: SR 12/08/2002: SR 60bpm Nuclear Stress Test: 03/19/2020: Myocardial perfusion imaging is normal. Overall left ventricular systolic function was normal without regional wall motion abnormalities. The left ventricular ejection fraction was 60%. There are no prior studies available for comparison. Frequent PVCs present during testing. Zio Patch: 11/07/2021: CONCLUSIONS: a Zio patch XT monitor was worn for 7 days and 6 hours ranging from 11/07/2021 until 11/14/2021 for the evaluation of atrial fibrillation. After artifact was removed, 5 days and 18 hours of data was available for analysis. Patient had a min HR of 47 bpm, max HR of 148 bpm, and avg HR of 73bpm. Predominant underlying rhythm was Sinus Rhythm. 1 run of Supraventricular Tachycardia occurred lasting 6 beats with a max rate of 148 bpm (avg 137 bpm). Episode of Supraventricular Tachycardia may be possible Atrial Tachycardia with variable block. solated SVEs were rare (<1.0%), SVE Couplets were rare (<1.0%), and SVE Triplets were rare (<1.0%). Isolated VEs were frequent (31.6%, [id number]), VE Couplets were rare (<1.0%, 2436), and VE Triplets were rare (<1.0%, 1802). Ventricular Bigeminy and Trigeminy were present. Summary: Somewhat technically limited study due to artifact. Frequent isolated PVCs were observed, PVC burden 31.6% the total QRS complexes, and included isolated PVCs as well as episodes of PVCs in a pattern of ventricular bigeminy and ventricular trigeminy. The longest episode of ventricular bigeminy lasted 51 minutes. The longest episode of ventricular trigeminy lasted 26 minutes. There were 2 patient triggered events submitted, there were nondiagnostic due to the presence of underlying artifact. No definite atrial fibrillation was observed.
--- NOTE | 2022-06-25 14:03 | Electrocardiogram Report ---
Test Reason : Blood Pressure : / mmHG Vent. Rate : 092 BPM Atrial Rate : 092 BPM P-R Int : 188 ms QRS Dur : 084 ms QT Int : 426 ms P-R-T Axes : 083 120 090 degrees QTc Int : 526 ms Normal sinus rhythm Biatrial enlargement Low voltage QRS [place] Septal infarct (cited on or before 24-JAN-2020) Lateral infarct , age undetermined Prolonged QT Abnormal ECG When compared with ECG of 03-MAY-2022 23:57, Lateral infarct is now Present ST no longer depressed in Inferior leads ST no longer depressed in Lateral leads Confirmed by Bob Terry ([id number]) on 06/25/2022 2:03:12 PM Referred By: REFERRED SELF Confirmed By:Bob Terry
[2022-06-25] MEDS ORDERED: FUROSEMIDE 40 MG/4 ML VIAL IV SCH (14:25)
[2022-06-25] MEDS: MULTIVITAMIN TAB PO SCH (14:48)
--- NOTE | 2022-06-25 16:27 | Hospitalist Progress Note ---
Date of Service June 25, 2022 Assessment & Plan (1) Acute hypoxemic respiratory failure: Plan: Decompensated heart failure Present on admission with worsening SOB CXR showed interval development of pulmonary edema with small bilateral pleural effusions. CTA chest showed no pulmonary emboli identified. Moderate interstitial pulmonary edema. Multifocal airspace opacities within lungs favor alveolar pulmonary edema however pneumonia could appear similar. Covid 19, RSV and influenza are negative on admisison Elevated WBC and lactic acid Procalcitonin normal received Azithromycin and ceftriaxone in the ER Lasix 40mg IV given this morning Starting on IV cefepime cardiology consult ECHO showed normal LV chamber size and wall motion at the base levels with progressive apical ballooning pattern and akinesis with EF 20 to 25% Continue Lasix 40mg IV BID Continue oxygen supplement Continue I/O Elevated lactic acid Possible related to acute respiratory failure due to pulmonary edema vx pneumonia lactic acid on admission 3.8 then 3.2 now Continue IV abx with Cefepime Blood cx and urine cx pending Monitor CBC Elevated troponin Mostly demand ischemia due to acute respiratory failure Troponin 1790, then 1623 received Aspirin 325mg in the ER Continue metorpolol 25mg BID Will resume eliquis Hx Afib rate control on Metoprolol Will resume Eliquis Hypothyroidism: Continue levothyroxine TSH WNL DVT prophylaxis SCD Will add Eliquis Left breast cancer S/P surgery and radiation therapy Continue Tamoxifen Code status full code Patient requesting updates for providers. Mr. Jam Khoury, contact #[phone]. Admission and Anticipated Discharge Date Admission Date: June 25, 2022 Subjective Pt was seen and examined for follow up of acute respiratory distress Lying in bed with acute respiratory distress and required oxygen supplement with oxymask Pt feels very weak and asking for help because she was having difficulty to breath I spoke to later at bedside and provided with updates and answered all his questions Denies any chest pain, palpitation and fever Review of Systems Review of Systems: All systems reviewed & are unremarkable except as noted in Subjective Physical Exam Physical Exam: General- acute respiratory distress Head- atraumatic Eyes- PERRL, EOMI, ENT- oropharynx clear Neck- supple, no JVD Lungs- clear to auscultation Heart- regular rhythm; +murmur Abdomen- normal bowel sounds, soft, nontender Extremities- no calf tenderness Neuro- alert, awake, PERRL, EOMI; no facial palsy; no dysarthria Skin- warm & dry Results & Data Results & Data ([facility]) Vital Signs (Past 12 Hours) Vital Signs Temp Pulse Pulse Resp BP Pulse Ox O2 Del Method 06/25/22 15:33 95 H 06/25/22 14:56 36.4 C L 93 H 22 103/67 95 Oxymask 06/25/22 14:05 36.4 C L 06/25/22 12:13 94 Oxymask 06/25/22 11:36 35.8 C L 102 H 24 127/77 93 Oxymask 06/25/22 10:17 90 Oxymask 06/25/22 09:51 105 H 06/25/22 08:41 Oxymask 06/25/22 07:12 36.5 C 103 H 20 120/92 94 Nasal Cannula O2 Flow Rate 06/25/22 15:33 06/25/22 14:56 5 06/25/22 14:05 06/25/22 12:13 5 06/25/22 11:36 9 06/25/22 10:17 11 06/25/22 09:51 06/25/22 08:41 8 06/25/22 07:12 4
[2022-06-25] MEDS ORDERED: CEFEPIME 2,000 MG in SYRINGE 0 ML IV SCH (20:00)
[2022-06-25] MEDS: APIXABAN 2.5 MG TAB PO SCH (20:51)
[2022-06-26] MEDS: hydrOXYzine HCl 10 MG TAB PO PRN (00:40)
[2022-06-26] MEDS ORDERED: OLANZapine 10 MG/2.1 ML SDV IM PRN (02:47)
[2022-06-26 04:09] LABS: BUN Creatinine Ratio 31.7 (10-20); Calcium 8.7 mg/dl (8.5-10.1); Creatinine Clr Calc Pharmacy 25.9 ml/min; Est GFR (African American) 39.5 ml/min; Est GFR (Non-African American) 34.1 ml/min; Magnesium 2.4 mg/dl (1.7-2.4); Potassium 4.7 mmol/L (3.5-5.1)
[2022-06-26 04:20] LABS: Basophils # (auto) 0.03 K/uL (0-0.2); Basophils % (auto) 0.1 %; Hematocrit (blood only) 37.9 % (34.1-44.9); Immature Granulocytes # (auto) 0.15 K/uL (0.00-0.02); Immature Granulocytes % (auto) 0.7 %; Lymphocytes # (auto) 1.05 K/uL (1.2-3.4); Lymphocytes % (auto) 4.6 %; Mean Corpuscular Hemoglobin 32.5 pg (25.0-34.0); Mean Corpuscular Hgb Conc 34.3 g/dL (32.0-36.0); Mean Corpuscular Volume 94.8 fL (80.0-100.0); Monocytes # (auto) 1.69 K/uL (0.24-0.82); Monocytes % (auto) 7.5 %; Neutrophils # (auto) 19.67 K/uL (1.4-6.5); Neutrophils % (auto) 87.1 %; Platelet Count 148 K/uL (130-400); RDW Coefficient of Variation 12.7 % (11.5-14.5); RDW Standard Deviation 44.4 fL (36.4-46.3); White Blood Count 22.59 K/ul (4.8-10.8)
[2022-06-26 04:32] LABS: Allen Test Pos (Pos); Base Excess ABG 2.2 mEq/L (-9-1.8); HCO3 ABG 25 mmol/L (19-24); Oxygen Saturation ABG 99.3 % (90-95); PCO2 ABG 34 mmHg (35-46); PO2 ABG 101 mmHg (80-95); pH ABG 7.48 (7.35-7.45)
[2022-06-26] MEDS ORDERED: ALBUMIN 25% 100 mL 25 GM/100 ML VIAL IV ONE (06:09)
--- NOTE | 2022-06-26 06:09 | Communication Note ---
Date of Service: June 26, 2022 Patient confused as per RN. Serum creatinine 1.42. AP Delirium secondary to ARF Possible overdiuresis Baseline UA IV albumin Hold Lasix for now
[2022-06-26 06:55] LABS: Appearance Urine Turbid (Clear); Bacteria Urine Automated Negative (Negative); Bilirubin Urine 1+ (Negative); Blood Urine 3+ (Negative); Color Urine Orange; Epithelial Cell Urine Auto >30 /lpf (0-5); Glucose Urine UA Negative (Negative); Ketones Urine Negative (Negative); Leukocyte Esterase Urine 1+ (Negative); Nitrite Urine Negative (Negative); Protein Urine 2+ (Negative); RBC Urine Automated >30 /hpf (0-4); Specific Gravity Urine > 1.045 (1.000-1.030); Urobilinogen Urine Negative (Negative); WBC Urine Automated >30 /hpf (0-5); pH Urine 5.5 (4.5-7.5)
[2022-06-26 07:21] LABS: Estimated Average Glucose 108 mg/dl; Hemoglobin A1C 5.4 % (4.5-5.6)
[2022-06-26] MEDS: TAMOXIFEN CITRATE 10 MG TABLET PO SCH (08:53)
[2022-06-26] MEDS: VITAMIN B COMPLEX TAB PO SCH (08:53)
[2022-06-26] MEDS: APIXABAN 2.5 MG TAB PO SCH ×2 (08:54→20:23)
[2022-06-26] MEDS: TIMOLOL MALEATE 0.5% OP SOLN 5 ML BTL OP SCH ×2 (08:54→20:23)
[2022-06-26] MEDS: METOPROLOL SUCC 25MG EXT REL TAB PO SCH ×2 (08:55→20:24)
[2022-06-26] MEDS: CEFEPIME 1,000 MG in SYRINGE 0 ML IV SCH ×2 (09:04→20:23)
[2022-06-26] MEDS: MULTIVITAMIN TAB PO SCH (11:58)
--- NOTE | 2022-06-26 13:11 | Cardiology Progress Note ---
Date of Service June 26, 2022 Assessment & Plan (1) PAF (paroxysmal atrial fibrillation): (2) Acute hypoxemic respiratory failure: (3) Elevated troponin: (4) Acute UTI (urinary tract infection): (5) Malignant neoplasm of central portion of left breast in female, estrogen receptor positive: Plan It was my pleasure to see Mrs. Khoury in cardiac consultation today. Her presenting symptoms are atypical for that of unstable angina but 2D echocardiogram does reveal severely reduced LV systolic function with an apical ballooning pattern. Differential diagnosis would be Takotsubo cardiomyopathy versus left main disease. Dimple has a history of tachycardia induced cardiomyopathy but is remained in normal sinus rhythm with a normal underlying right bundle branch block pattern. Ischemic evaluation should be considered once her underlying sepsis improves. Significant bilateral pleural effusions so we will increase diuretic to 40 mg IV twice daily Electrolytes and renal function should be followed and repleted as necessary. Strict I's and O's along with daily weights Beta-david should be continued uninterrupted but lisinopril may be held if any signs of hypotension Continue to monitor on telemetry Recommend discussion with the patient and family on goals of care and CODE STATUS given her frail baseline Admission and Anticipated Discharge Date Admission Date: June 25, 2022 Subjective Patient seen and examined. Chart reviewed. Telemetry reviewed. Review of Systems Review of Systems: All systems reviewed & are unremarkable except as noted in HPI & below Physical Exam Physical Exam: General: Awake, alert and oriented x 3. Mild conversational dyspnea on oxygen mask. Patient is very ill and frail in appearance. HEENT: Normocephalic, atraumatic. Pupils equal, round and reactive to light and accommodation. Extraocular muscles are intact. Anicteric sclera. Moist mucous membranes. Neck: No JVD. No bruit. Cardiovascular: Regular. Positive S-4. Normal S-1 and S-2. No S-3. 3/6 holosystolic ejection murmur, left sternal border, mid-clavicular line with radiation to the axilla. No rubs. Pulmonary: Poor air movement with diffuse rhonchi and bibasilar rales Abdomen: Bowel sounds x 4, soft. No rebound, guarding or tenderness. No organomegaly. Extremities: No clubbing, cyanosis or edema. +2 pedal pulses bilaterally. Skin: Warm and dry. Results & Data ([facility]) Vital Signs (Past 12 Hours) Vital Signs Temp Pulse Pulse Resp BP Pulse Ox O2 Del Method 06/26/22 12:41 110/72 06/26/22 11:26 36.4 C L 76 19 90/60 L 98 Nasal Cannula 06/26/22 10:17 Nasal Cannula 06/26/22 08:00 75 06/26/22 07:28 36.9 C 78 19 94/64 L 92 Nasal Cannula 06/26/22 03:27 90 06/26/22 03:26 36.5 C 81 20 106/69 97 Nasal Cannula O2 Flow Rate 06/26/22 12:41 06/26/22 11:26 3 06/26/22 10:17 3 06/26/22 08:00 06/26/22 07:28 4 06/26/22 03:27 06/26/22 03:26 5
--- NOTE | 2022-06-26 13:18 | XRay Report ---
XR chest 1V portable HISTORY: Shortness of breath. Follow-up. COMPARISON: Chest 06/25/2022. FINDINGS: The heart remains enlarged. Interval improvement in the mild pulmonary edema. Bilateral ple ural effusions and bibasilar densities have progressed. No pneumothorax. There are calcifications wit hin the aortic knob. IMPRESSION: 1. Interval improvement in the mild interstitial pulmonary edema. 2. Bibasilar densities and pleural effusions have progressed. ACT 112: Negative or not required by law. Electronically signed by: Colin Garcia M.D. 06/26/2022 1:17 PM
--- NOTE | 2022-06-27 01:27 | Hospitalist Progress Note ---
Date of Service June 26, 2022 Assessment & Plan (1) Acute hypoxemic respiratory failure: Plan: Decompensated heart failure Present on admission with worsening SOB CXR showed interval development of pulmonary edema with small bilateral pleural effusions. CTA chest showed no pulmonary emboli identified. Moderate interstitial pulmonary edema. Multifocal airspace opacities within lungs favor alveolar pulmonary edema however pneumonia could appear similar. Covid 19, RSV and influenza are negative on admission Elevated WBC and lactic acid Procalcitonin normal received Azithromycin and ceftriaxone in the ER Lasix 40mg IV BID started yesterday Continue IV cefepime cardiology consult ECHO showed normal LV chamber size and wall motion at the base levels with progressive apical ballooning pattern and akinesis with EF 20 to 25% Hold Lasix today due to elevate creatinine Continue oxygen supplement Continue I/O Elevated lactic acid Possible related to acute respiratory failure due to pulmonary edema vx pneumonia lactic acid on admission 3.8 then 2.5 today WBC increased to 22K Continue IV abx with Cefepime Blood cx no growth and urine cx grew multiples organisms Urine cx repeat today Monitor CBC Elevated troponin Mostly demand ischemia due to acute respiratory failure Troponin 1790, then 1623 received Aspirin 325mg in the ER Continue metorpolol 25mg BID Will resume eliquis Hx Afib rate control on Metoprolol Continue Eliquis Hypothyroidism: Continue levothyroxine TSH WNL DVT prophylaxis SCD Will add Eliquis Left breast cancer S/P surgery and radiation therapy Continue Tamoxifen Code status full code Patient requesting updates for providers. Mr. Jam Khoury, contact #[phone]. Admission and Anticipated Discharge Date Admission Date: June 25, 2022 Subjective Pt was seen and examined for follow up of acute respiratory distress Lying in bed continue to require oxygen supplement with 3L NC She said that her breathing feels alot better compare to yesterday Denies any chest pain, palpitation and fever Review of Systems Review of Systems: All systems reviewed & are unremarkable except as noted in Subjective Physical Exam Physical Exam: General- acute respiratory distress Head- atraumatic Eyes- PERRL, EOMI, ENT- oropharynx clear Neck- supple, no JVD Lungs- +diminished BS Heart- regular rhythm; +murmur Abdomen- normal bowel sounds, soft, nontender Extremities- no calf tenderness Neuro- alert, awake, PERRL, EOMI; no facial palsy; no dysarthria Skin- warm & dry Results & Data Results & Data ([facility]) Vital Signs (Past 12 Hours) Vital Signs Temp Pulse Pulse Resp BP Pulse Ox O2 Del Method 06/26/22 20:00 Nasal Cannula 06/26/22 22:13 63 06/26/22 23:34 36.4 C L 66 16 92/60 L 95 Nasal Cannula 06/26/22 19:51 36.8 C 74 20 93/57 L 95 Nasal Cannula 06/26/22 16:51 96 Nasal Cannula 06/26/22 15:53 36.5 C 77 20 92/54 L 95 Nasal Cannula 06/26/22 15:18 78 O2 Flow Rate 06/26/22 20:00 2 06/26/22 22:13 06/26/22 23:34 2 06/26/22 19:51 2 06/26/22 16:51 2 06/26/22 15:53 3 06/26/22 15:18
[2022-06-27] MEDS: LEVOTHYROXINE SODIUM 200 MCG TABLET PO SCH (06:15)
[2022-06-27 07:29] LABS: Hematocrit (blood only) 36.6 % (34.1-44.9); Hemoglobin 12.6 g/dl (12.0-16.0); Mean Corpuscular Hemoglobin 32.6 pg (25.0-34.0); Mean Corpuscular Hgb Conc 34.4 g/dL (32.0-36.0); Mean Corpuscular Volume 94.6 fL (80.0-100.0); Platelet Count 119 K/uL (130-400); RDW Standard Deviation 45.2 fL (36.4-46.3); Red Blood Count 3.87 M/uL (3.93-5.22); White Blood Count 16.68 K/ul (4.8-10.8)
[2022-06-27 07:31] LABS: BUN Creatinine Ratio 42.9 (10-20); Calcium 8.4 mg/dl (8.5-10.1); Creatinine Clr Calc Pharmacy 29.2 ml/min; Est GFR (African American) 45.6 ml/min; Est GFR (Non-African American) 39.4 ml/min; Potassium 4.4 mmol/L (3.5-5.1)
[2022-06-27] MEDS: VITAMIN B COMPLEX TAB PO SCH (08:28)
[2022-06-27] MEDS: METOPROLOL SUCC 25MG EXT REL TAB PO SCH ×2 (08:28→21:15)
[2022-06-27] MEDS: APIXABAN 2.5 MG TAB PO SCH ×2 (08:29→21:15)
[2022-06-27] MEDS: TIMOLOL MALEATE 0.5% OP SOLN 5 ML BTL OP SCH ×2 (08:29→21:16)
[2022-06-27] MEDS: TAMOXIFEN CITRATE 10 MG TABLET PO SCH (08:29)
[2022-06-27] MEDS: CEFEPIME 1,000 MG in SYRINGE 0 ML IV SCH ×2 (08:34→21:16)
[2022-06-27] MEDS ORDERED: AMIODARONE IV BOLUS & DRIP IV STA (09:37)
[2022-06-27] MEDS ORDERED: STAT IV Infusion **Titration per Protocol STA (09:37)
[2022-06-27] MEDS ORDERED: AMIODARONE / D5W 150 MG/100 ML BAG IV STA (09:37)
[2022-06-27] MEDS ORDERED: 0.2 MICRON FILTER SET 1 EACH IV STA (09:37)
[2022-06-27] MEDS ORDERED: AMIODARONE / D5W 360 MG/200 ML BAG IV ONE (09:51)
[2022-06-27] MEDS: MULTIVITAMIN TAB PO SCH (12:20)
[2022-06-27] MEDS: AMIODARONE / D5W 360 MG/200 ML BAG IV SCH (15:47)
--- NOTE | 2022-06-27 23:48 | Hospitalist Progress Note ---
Date of Service June 27, 2022 Assessment & Plan (1) Acute hypoxemic respiratory failure: Plan: Decompensated heart failure Present on admission with worsening SOB CXR showed interval development of pulmonary edema with small bilateral pleural effusions. CTA chest showed no pulmonary emboli identified. Moderate interstitial pulmonary edema. Multifocal airspace opacities within lungs favor alveolar pulmonary edema however pneumonia could appear similar. Covid 19, RSV and influenza are negative on admission Elevated WBC and lactic acid Procalcitonin normal received Azithromycin and ceftriaxone in the ER Continue IV cefepime cardiology consult ECHO showed normal LV chamber size and wall motion at the base levels with progressive apical ballooning pattern and akinesis with EF 20 to 25% Hold Lasix today due to elevate creatinine She was weaned off the oxygen supplement Saturated well on room air Continue I/O Elevated lactic acid Possible related to acute respiratory failure due to pulmonary edema vx pneumonia lactic acid on admission 3.8 then 2.5 -->1 today WBC decreased from 22K to 16K Continue IV abx with Cefepime Blood cx no growth and urine cx grew multiples organisms Repeat urine culture negative Monitor CBC Elevated troponin Mostly demand ischemia due to acute respiratory failure Troponin 1790, then 1623 received Aspirin 325mg in the ER Continue Metopolol 25mg BID and Eliquis Denies any chest pain Afib Converted to A. fib this morning EKG done shown PVC with A. fib Case discussed with cardiology recommend to start on amiodarone drip Amiodarone bolus x1 given Continue Eliquis and metoprolol Continue monitor closely in telemetry Hypothyroidism: Continue levothyroxine TSH WNL DVT prophylaxis SCD Continue Eliquis Left breast cancer S/P surgery and radiation therapy Continue Tamoxifen Code status full code Patient requesting updates for providers. Mr. Jam Khoury, contact #[phone]. Admission and Anticipated Discharge Date Admission Date: June 25, 2022 Subjective Pt was seen and examined for follow up of acute respiratory distress Lying in bed with no acute distress saturating well on RA. 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 I spoke to daughter at bedside in details and provided with update and answered all of her questions Denies any chest pain, palpitation, fever and SOB Review of Systems Review of Systems: All systems reviewed & are unremarkable except as noted in Subjective Physical Exam Physical Exam: General- acute respiratory distress Head- atraumatic Eyes- PERRL, EOMI, ENT- oropharynx clear Neck- supple, no JVD Lungs- +diminished BS Heart- irregular rhythm; +murmur Abdomen- normal bowel sounds, soft, nontender Extremities- no calf tenderness Neuro- alert, awake, PERRL, EOMI; no facial palsy; no dysarthria Skin- warm & dry Results & Data Results & Data ([facility]) Vital Signs (Past 12 Hours) Vital Signs Temp Pulse Pulse Pulse Resp BP Pulse Ox 06/27/22 22:51 36.6 C 101 H 16 89/65 L 95 06/27/22 21:44 06/27/22 19:33 36.5 C 105 H 20 102/72 95 06/27/22 15:10 103 H 06/27/22 15:01 36.5 C 106 H 20 103/69 96 O2 Del Method 06/27/22 22:51 Room Air 06/27/22 21:44 Room Air 06/27/22 19:33 Room Air 06/27/22 15:10 06/27/22 15:01 Room Air
[2022-06-28] MEDS: AMIODARONE / D5W 360 MG/200 ML BAG IV SCH (03:50)
[2022-06-28] MEDS ORDERED: ALBUMIN 25% 100 mL 25 GM/100 ML VIAL IV ONE ×2 (04:02→12:02)
[2022-06-28] MEDS ORDERED: DIGOXIN 250 MCG in SYRINGE 9 ML IV ONE (04:15)
[2022-06-28 04:29] LABS: Basophils # (auto) 0.02 K/uL (0-0.2); Basophils % (auto) 0.2 %; Eosinophils # (auto) 0.03 K/uL (0-0.50); Eosinophils % (auto) 0.3 %; Hematocrit (blood only) 35.6 % (34.1-44.9); Hemoglobin 12.5 g/dl (12.0-16.0); Immature Granulocytes # (auto) 0.06 K/uL (0.00-0.02); Immature Granulocytes % (auto) 0.5 %; Lymphocytes # (auto) 1.35 K/uL (1.2-3.4); Lymphocytes % (auto) 11.6 %; Mean Corpuscular Hemoglobin 32.1 pg (25.0-34.0); Mean Corpuscular Hgb Conc 35.1 g/dL (32.0-36.0); Mean Corpuscular Volume 91.5 fL (80.0-100.0); Monocytes # (auto) 1.36 K/uL (0.24-0.82); Monocytes % (auto) 11.7 %; Neutrophils # (auto) 8.85 K/uL (1.4-6.5); Neutrophils % (auto) 75.7 %; Platelet Count 138 K/uL (130-400); RDW Coefficient of Variation 12.6 % (11.5-14.5); RDW Standard Deviation 41.9 fL (36.4-46.3); Red Blood Count 3.89 M/uL (3.93-5.22); White Blood Count 11.67 K/ul (4.8-10.8)
[2022-06-28 05:16] LABS: BUN Creatinine Ratio 41.7 (10-20); Calcium 7.5 mg/dl (8.5-10.1); Creatinine Clr Calc Pharmacy 38.3 ml/min; Est GFR (African American) 63.4 ml/min; Est GFR (Non-African American) 54.7 ml/min; Magnesium 2.4 mg/dl (1.7-2.4); Potassium 3.9 mmol/L (3.5-5.1)
[2022-06-28] MEDS ORDERED: POTASSIUM CHLORIDE PWD 20 MEQ PACK PO STA (05:21)
[2022-06-28] MEDS: LEVOTHYROXINE SODIUM 200 MCG TABLET PO SCH (06:04)
[2022-06-28] MEDS ORDERED: STAT IV STA (06:54)
[2022-06-28] MEDS ORDERED: CALCIUM GLUCONATE 10% 1,000 MG in DEXTROSE 5% 50 ML IV ONE (07:00)
--- NOTE | 2022-06-28 07:39 | Hospitalist Progress Note ---
Date of Service June 28, 2022 Assessment & Plan (1) Acute hypoxemic respiratory failure: Plan: Decompensated heart failure Present on admission with worsening SOB CXR showed interval development of pulmonary edema with small bilateral pleural effusions. CTA chest showed no pulmonary emboli identified. Moderate interstitial pulmonary edema. Multifocal airspace opacities within lungs favor alveolar pulmonary edema however pneumonia could appear similar. Covid 19, RSV and influenza are negative on admission Elevated WBC and lactic acid Procalcitonin normal received Azithromycin and ceftriaxone in the ER Continue IV cefepime cardiology consult ECHO showed normal LV chamber size and wall motion at the base levels with progressive apical ballooning pattern and akinesis with EF 20 to 25% Hold Lasix today due to elevate creatinine She was weaned off the oxygen supplement Saturating well on room air Continue I/O Elevated lactic acid Possible related to acute respiratory failure due to pulmonary edema vs pneumonia lactic acid on admission 3.8 then 2.5 -->0.8 today WBC decreased from 22K to 12K Continue IV abx with Cefepime Blood cx no growth and urine cx grew multiples organisms Repeat urine culture negative Monitor CBC Elevated troponin Mostly demand ischemia due to acute respiratory failure Troponin 1790, then 1623 received Aspirin 325mg in the ER Continue Metoprolol 25mg BID and Eliquis Denies any chest pain Afib Converted to A. fib yesterday morning (06/27) EKG done shown PVC with A. fib Case discussed with cardiology recommend to start on amiodarone drip Amiodarone started Continue Eliquis and metoprolol Continue monitor closely in telemetry Hypothyroidism: Continue levothyroxine TSH WNL DVT prophylaxis SCD Continue Eliquis Left breast cancer S/P surgery and radiation therapy Continue Tamoxifen Code status full code Patient's : Mr. Jam Khoury, contact #[phone]. Admission and Anticipated Discharge Date Admission Date: June 25, 2022 Subjective Pt was seen and examined for follow up of acute respiratory distress Yesterday pt in Afib and amiodarone gtt was started Currently sitting up in bed in NAD saturating well on RA. Reports feeling better My colleague (previous provider) spoke to daughter at bedside and provided with update Currently pt denies any fever, chills, chest pain, palpitations, or shortness of breath. She would like to get up from the bed. PT/OT ordered Review of Systems Review of Systems: All systems reviewed & are unremarkable except as noted in Subjective Physical Exam Physical Exam: General- acute respiratory distress Head- atraumatic Eyes- PERRL, EOMI, ENT- oropharynx clear Neck- supple, no JVD Lungs- +diminished BS at the bases, no wheezing Heart- irregular rhythm; +murmur Abdomen- normal bowel sounds, soft, nontender Extremities- moves extremities, no significant edema noted Neuro- alert, awake, PERRL, EOMI; no facial palsy; no dysarthria Skin- warm & dry Results & Data Results & Data ([facility]) Vital Signs (Past 12 Hours) Vital Signs Temp Pulse Pulse Resp BP BP Pulse Ox 06/28/22 06:08 86 102/69 06/28/22 04:40 105 H 06/28/22 03:46 88/57 L 93 06/28/22 03:45 36.6 C 105 H 18 79/43 L 94 06/27/22 23:54 111 H 93/65 L 06/27/22 22:51 36.6 C 101 H 16 89/65 L 95 06/27/22 21:44 O2 Del Method 06/28/22 06:08 06/28/22 04:40 06/28/22 03:46 06/28/22 03:45 Room Air 06/27/22 23:54 06/27/22 22:51 Room Air 06/27/22 21:44 Room Air Laboratory Results 06/28/22 06/28/22 06/28/22 Range/Units 04:17 04:17 04:17 WBC (4.8-10.8) K/ul RBC (3.93-5.22) M/uL Hgb (12.0-16.0) g/dl Hct (34.1-44.9) % MCV (80.0-100.0) fL MCH (25.0-34.0) pg MCHC (32.0-36.0) g/dL RDW Std Deviation (36.4-46.3) fL RDW Coeff of Carter (11.5-14.5) % Plt Count (130-400) K/uL MPV (9.4-12.3) fL Immature Gran % (Auto) % Neut % (Auto) % Lymph % (Auto) % [place] % (Auto) % Eos % (Auto) % Baso % (Auto) % Neut # (Auto) (1.4-6.5) K/uL Lymph # (Auto) (1.2-3.4) K/uL [place] # (Auto) (0.24-0.82) K/uL Eos # (Auto) (0-0.50) K/uL Baso # (Auto) (0-0.2) K/uL Immature Gran # (Auto) (0.00-0.02) K/uL Sodium 134 L (136-145) mmol/L Potassium 3.9 (3.5-5.1) mmol/L Chloride 104 (98-107) mmol/L Carbon Dioxide 25 (21-32) mmol/L Anion Gap 5 (3-11) BUN 40 H (6-23) mg/dl Creatinine 0.96 D (0.6-1.2) mg/dl Est Cr Clr Drug Dosing 38.3 ml/min Est GFR ( Amer) 63.4 ml/min Est GFR (Non-Af Amer) 54.7 ml/min BUN/Creatinine Ratio 41.7 H (10-20) Glucose 102 H (70-99(Fasting)) mg/dl Lactate 0.8 (0.4-2.0) mmol/L Calcium 7.5 L (8.5-10.1) mg/dl Magnesium 2.4 (1.7-2.4) mg/dl Albumin 3.1 L (3.4-5.0) gm/dl 06/28/22 06/27/22 Range/Units 04:17 09:07 WBC 11.67 H (4.8-10.8) K/ul RBC 3.89 L (3.93-5.22) M/uL Hgb 12.5 (12.0-16.0) g/dl Hct 35.6 (34.1-44.9) % MCV 91.5 (80.0-100.0) fL MCH 32.1 (25.0-34.0) pg MCHC 35.1 (32.0-36.0) g/dL RDW Std Deviation 41.9 (36.4-46.3) fL RDW Coeff of Carter 12.6 (11.5-14.5) % Plt Count 138 (130-400) K/uL MPV 10.0 (9.4-12.3) fL Immature Gran % (Auto) 0.5 % Neut % (Auto) 75.7 % Lymph % (Auto) 11.6 % [place] % (Auto) 11.7 % Eos % (Auto) 0.3 % Baso % (Auto) 0.2 % Neut # (Auto) 8.85 H (1.4-6.5) K/uL Lymph # (Auto) 1.35 (1.2-3.4) K/uL [place] # (Auto) 1.36 H (0.24-0.82) K/uL Eos # (Auto) 0.03 (0-0.50) K/uL Baso # (Auto) 0.02 (0-0.2) K/uL Immature Gran # (Auto) 0.06 H (0.00-0.02) K/uL Sodium (136-145) mmol/L Potassium (3.5-5.1) mmol/L Chloride (98-107) mmol/L Carbon Dioxide (21-32) mmol/L Anion Gap (3-11) BUN (6-23) mg/dl Creatinine (0.6-1.2) mg/dl Est Cr Clr Drug Dosing ml/min Est GFR ( Amer) ml/min Est GFR (Non-Af Amer) ml/min BUN/Creatinine Ratio (10-20) Glucose (70-99(Fasting)) mg/dl Lactate (0.4-2.0) mmol/L Calcium (8.5-10.1) mg/dl Magnesium 2.4 (1.7-2.4) mg/dl Albumin (3.4-5.0) gm/dl Medications Administered Current Inpatient Medications Acetaminophen (Acetaminophen 325 Mg Tab) 650 mg PO Q4H PRN PRN Reason: Pain or Fever Stop: 07/25/22 08:40 Apixaban (Apixaban 2.5 Mg Tab) 2.5 mg PO BID FILIBERTO Stop: 07/25/22 20:59 Last Admin: 06/27/22 21:15 Dose: 2.5 mg Fluticasone Propionate (Fluticasone Propionate Na Spr 16 Gm Btl) 2 sprays NA QAM PRN PRN Reason: as directed Stop: 07/25/22 08:40 Furosemide (Furosemide 40 Mg/4 Ml Vial) 40 mg IV [id number] FILIBERTO Stop: 07/25/22 14:24 Last Admin: 06/25/22 14:59 Dose: 40 mg Promethazine HCl 6.25 mg/ (Sodium Chloride) 50.25 mls @ 201 mls/hr IV Q6H PRN PRN Reason: Nausea And Vomiting Stop: 07/25/22 06:46 Cefepime HCl 1,000 mg/ Syringe 10 mls @ 5 mls/min IV Q12 [facility]; Protocol Stop: 07/05/22 20:59 Last Admin: 06/27/22 21:16 Dose: 5 mls/min Amiodarone HCl/Dextrose (Nexterone / D5w) 360 mg in 200 mls @ 16.667 mls/hr IV .Q12H [facility] Stop: 07/27/22 15:44 Last Admin: 06/28/22 03:50 Dose: 0.5 mg/min, 16.7 mls/hr Levothyroxine Sodium (Levothyroxine Sodium 200 Mcg Tablet) 200 mcg PO SuTuWeFrSa@0630 [facility] Stop: 07/25/22 08:40 Last Admin: 06/28/22 06:04 Dose: 200 mcg Levothyroxine Sodium (Levothyroxine Sodium 100 Mcg Tablet) 100 mcg PO Th@0630 [facility] Stop: 07/29/22 06:29 Lisinopril (Lisinopril 10 Mg Tab) 10 mg PO QAM [facility] Stop: 07/25/22 08:59 Last Admin: 06/25/22 09:12 Dose: 10 mg Metoprolol Succinate (Metoprolol Succ 25mg Ext Rel Tab) 25 mg PO AMHS [facility] Stop: 07/25/22 08:59 Last Admin: 06/27/22 21:15 Dose: 25 mg Miscellaneous (Tacrolimus 0.03% Ointment: Order Awaiting Action) 1 each N/A QS [facility] Stop: 07/25/22 15:59 Last Admin: 06/27/22 17:31 Dose: Not Given Multivitamins (Multivitamin Tab) 1 tab PO QDL [facility] Stop: 07/25/22 11:29 Last Admin: 06/27/22 12:20 Dose: 1 tab Olanzapine (Olanzapine 10 Mg/2.1 Ml Sdv) 2.5 mg IM Q4H PRN PRN Reason: Anxiety/Agitation Stop: 07/26/22 02:46 Tamoxifen Citrate (Tamoxifen Citrate 10 Mg Tablet) 20 mg PO DAILY [facility] Stop: 07/25/22 08:59 Last Admin: 06/27/22 08:29 Dose: 20 mg Timolol Maleate (Timolol Maleate 0.5% Op Soln 5 Ml Btl) 1 drops OP BID FILIBERTO Stop: 07/25/22 08:59 Last Admin: 06/27/22 21:16 Dose: 1 drops Tramadol HCl (Tramadol Hcl 50 Mg Tablet) 25 - 50 mg PO Q4H PRN PRN Reason: Pain Stop: 07/25/22 06:46 Vitamin B Complex (Vitamin B Complex Tab) 1 tab PO QAM [facility] Stop: 07/25/22 08:59 Last Admin: 06/27/22 08:28 Dose: 1 tab
[2022-06-28] MEDS: METOPROLOL SUCC 25MG EXT REL TAB PO SCH ×2 (08:21→20:57)
[2022-06-28] MEDS: APIXABAN 2.5 MG TAB PO SCH (08:21)
[2022-06-28] MEDS: TIMOLOL MALEATE 0.5% OP SOLN 5 ML BTL OP SCH ×2 (08:21→20:57)
[2022-06-28] MEDS: VITAMIN B COMPLEX TAB PO SCH (08:22)
[2022-06-28] MEDS: TAMOXIFEN CITRATE 10 MG TABLET PO SCH (08:22)
[2022-06-28] MEDS: CEFEPIME 1,000 MG in SYRINGE 0 ML IV SCH (08:27)
--- NOTE | 2022-06-28 10:14 | XRay Report ---
XR chest 1V portable HISTORY: Dyspnea. Follow-up. COMPARISON: Chest 06/26/2022. FINDINGS: No pneumothorax. Small to moderate bilateral pleural effusions and bibasilar densities pers ist. The heart remains mildly enlarged. No evidence for pulmonary edema. The upper lung zones are meghna ar. IMPRESSION: No change in the small to moderate bilateral pleural effusions and bibasilar densities. ACT 112: Negative or not required by law. Electronically signed by: Colin Garcia M.D. 06/28/2022 10:12 AM
[2022-06-28] MEDS: MULTIVITAMIN TAB PO SCH (11:30)
[2022-06-28] MEDS ORDERED: FUROSEMIDE INJ 20 MG/2 ML VIAL IV ONE (12:01)
--- NOTE | 2022-06-28 13:58 | Pulmonary Consultation ---
Date of Consultation June 28, 2022 Assessment & Plan (1) Bilateral pleural effusion: I performed a pleural ultrasound at bedside which revealed a free-flowing moderate to large right pleural effusion. There is minimal effusion seen on the left. I discussed the case with the patient and daughter at bedside extensively. They understand the risks and benefits of a thoracentesis and would like to proceed. There is an increased risk with her being on Eliquis. I discussed this with the patient's inpatient special agent, Dr. Conway. He feels that it would be safe to hold her Eliquis for 1 to 2 days prior to her thoracentesis. I doubt that the effusion is secondary to an empyema as no loculations are seen. The patient does not appear septic at this time. I will reevaluate with a pleural ultrasound on Sunday to see if any fluid is remaining and if there continues to be a large effusion, will proceed with thoracentesis. (2) Heart failure, diastolic, with acute decompensation: Continue with diuretic therapy as able. (3) Hypoxia: Secondary to atelectasis and CHF. (4) PAF (paroxysmal atrial fibrillation): We will hold Eliquis. No need for a heparin bridge at this time per Dr. Conway. History of Present Illness Reason for Consultation: Pleural effusion Attending Physician: Cayetano Jason MD History of Present Illness 82-year-old female with history chronic diastolic CHF, A. fib and moderate to severe tricuspid regurg presenting to the hospital on 06/25/2022 due to abdominal discomfort. During this hospitalization she was found to have decompensated heart failure and was diuresed. She had increasing creatinine and diuresis has been held today. She is also on IV antibiotics for possible pneumonia. She is currently on p.o. amiodarone. She is on Eliquis as well. She denies any cough. No dyspnea while at rest. She is very lethargic. She is alert and oriented x4 when aroused. She has a history of left breast cancer status post radiation therapy. Chest CTA completed 06/25/2022 revealed evidence of pulmonary edema and small to moderate right pleural effusion. Chest x-ray completed today demonstrates small to moderate bilateral pleural effusions. Pulmonary is consulted for possible thoracentesis. Allergies Allergy/AdvReac Type Severity Reaction Status Date / Time alendronate sodium Allergy Intermediate RASH Verified 06/25/22 06:24 Home Medications Medication Instructions Recorded Confirmed Type fluticasone propionate 50 2 spray intranasal QAM PRN as 01/24/20 06/25/22 History mcg/actuation nasal directed spray,suspension (Flonase Allergy Relief) ketoconazole 2 % topical cream 1 applic topical HS 01/24/20 06/25/22 History levothyroxine 200 mcg tablet See Rx Instructions .Route .COMPLEX 01/24/20 06/25/22 History multivitamin 1 tab PO QDL 01/24/20 06/25/22 History ascorbic acid (vitamin C) 1,000 mg 1,000 mg PO QAM 02/12/20 06/25/22 History tablet (Vitamin C) cholecalciferol (vitamin D3) 25 25 mcg PO QAM 02/12/20 06/25/22 History mcg (1,000 unit) tablet (Vitamin D3) vitamin B complex 1 tab PO QAM 02/12/20 06/25/22 History apixaban 2.5 mg tablet (Eliquis) 2.5 mg PO BID #60 tabs 02/14/20 06/25/22 Rx hydrochlorothiazide 25 mg tablet 12.5 mg PO .MON/WED/FRI 07/27/20 06/25/22 History tamoxifen 20 mg tablet 20 mg PO DAILY 02/23/21 06/25/22 History calcium carbonate 600 mg calcium 600 mg PO TIDM 05/03/22 06/25/22 History (1,500 mg) tablet (Calcium) estradiol 0.01% (0.1 mg/gram) 1 applic vaginal 3XWK 05/03/22 06/25/22 History vaginal cream ketoconazole 2 % shampoo 1 ea topical 3XWK 05/03/22 06/25/22 History lisinopril 10 mg tablet 10 mg PO QAM 05/03/22 06/25/22 History magnesium oxide 400 mg PO QAM 05/03/22 06/25/22 History metoprolol succinate 25 mg 25 mg PO AMHS 05/03/22 06/25/22 History tablet,extended release 24 hr potassium chloride 20 mEq oral 20 meq PO DAILY 05/03/22 06/25/22 History packet spironolactone 25 mg tablet 12.5 mg PO DAILY 05/03/22 06/25/22 History timolol maleate 0.5 % eye drops 1 drp OPR BID 05/03/22 06/25/22 History Saccharomyces boulardii 250 mg 250 mg PO BID #20 caps 05/04/22 06/25/22 Rx capsule (Florastor) tacrolimus 0.03 % topical ointment 1 applic topical BID 06/25/22 06/25/22 History triamcinolone acetonide 0.1 % 0.1 applic topical 2XWK 06/25/22 06/25/22 History topical ointment Patient History Medical History (Updated 06/28/22 @ 13:58 by Tray Valdez MD) Atrial fibrillation with rapid ventricular response Bilateral pleural effusion Chest pain Diffuse cystic mastopathy Elevated d-dimer GERD (gastroesophageal reflux disease) Heart failure, diastolic, with acute decompensation History of small bowel obstruction History of ventral hernia repair Hypertension Hypothyroidism Hypoxia Lateral meniscus tear Lyme disease 01/2020 Mitral valve regurgitation Osteoporosis SOB (shortness of breath) Subacute bacterial endocarditis Temporomandibular disorder Surgical History History of breast biopsy Late 70's/early 80's - Benign History of cataract surgery (2013) History of colonoscopy 05/29/2014, 03/27/2017 History of esophagogastroduodenoscopy (EGD) (03/27/17) History of esophagogastroduodenoscopy (EGD) (03/15/15) with Endoscopic US History of left breast biopsy (06/01/20) History of lumpectomy of left breast (06/30/20) + SLN Biopsy (positive for invasive carcinoma) History of right breast biopsy (09/19/05) History of surgery (03/14/06) Closure colostomy, cholecystectomy, cholangiogram, incidental appendectomy (Dr. Reynolds) Status post appendectomy (03/14/06) Status post cholecystectomy (03/14/06) Status post hernia repair (05/01/07) Status post partial colectomy (12/02/05) "bowel perforation" Status post partial thyroidectomy Status post tonsillectomy as a child Family History Father , Passed age 84 of CHF No problems noted. Mother , Passed age 84 of Alzheimer's complications No problems noted. Aunt , (Paternal) Passed in mid 70's of unknown cancer No problems noted. Brother , Passed age 65 diabetes complications No problems noted. Daughter No problems noted. Daughter No problems noted. Daughter No problems noted. Son No problems noted. 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 Patient is in no apparent distress. Patient is well-developed. Eyes: Pupils are equal round and reactive to light. Conjunctivae are normal. Anicteric sclera. Ears nose, mouth and throat: Mallampati class 2. Normal posterior oropharynx. Uvula is midline. Neck: Trachea is midline. Visual inspection is normal. Respiratory: Bibasilar crackles. Diminished bilaterally. Cardiovascular: Regular rate and rhythm. No murmurs. No edema. Gastrointestinal: Normal bowel sounds, soft, nontender and nondistended. No hep atosplenomegaly noted. Musculoskeletal: No cyanosis. Patient is able to move all extremities. Strength is 5 out of 5 in the upper and lower extremities. Skin: No rashes, warm dry and intact. Neurologic: No obvious focal neurological deficits seen. Psychiatric: Alert and oriented x3 with a euthymic affect. Results & Data Results & Data ([facility]) Vital Signs (Past 12 Hours) Vital Signs Temp Pulse Pulse Pulse Resp BP BP 06/28/22 11:59 36.9 C 73 18 105/56 L 06/28/22 10:45 06/28/22 08:00 97 H 06/28/22 08:00 36.8 C 73 18 98/63 L 06/28/22 06:08 86 102/69 06/28/22 04:40 105 H 06/28/22 03:46 88/57 L 06/28/22 03:45 36.6 C 105 H 18 79/43 L Pulse Ox O2 Del Method 06/28/22 11:59 96 06/28/22 10:45 Room Air 06/28/22 08:00 06/28/22 08:00 95 06/28/22 06:08 06/28/22 04:40 06/28/22 03:46 93 06/28/22 03:45 94 Room Air PG Care Time/CCT Total # of Minutes Spent Total Time Spent with Patient: Total time spent is greater than 50% in coordination of care (as documented) at patient's floor/unit and/or counseling patient: Coding Level of Care Code 52388 Initial Inpt Care Lvl 3 Diagnoses Bilateral pleural effusion J90 Heart failure, diastolic, with acute decompensation I50.33 Hypoxia R09.02 PAF (paroxysmal atrial fibrillation) I48.0
--- NOTE | 2022-06-28 14:17 | Cardiology Progress Note ---
Date of Service June 28, 2022 Assessment & Plan (1) PAF (paroxysmal atrial fibrillation): (2) Acute hypoxemic respiratory failure: (3) Elevated troponin: (4) Acute UTI (urinary tract infection): (5) Malignant neoplasm of central portion of left breast in female, estrogen receptor positive: Plan It was my pleasure to see Mrs. Khoury in cardiac consultation today. Her presenting symptoms are atypical for that of unstable angina but 2D echocardiogram does reveal severely reduced LV systolic function with an apical ballooning pattern. Differential diagnosis would be Takotsubo cardiomyopathy versus left main disease. She has a history of tachycardia induced cardiomyopathy but is remained in normal sinus rhythm with a normal underlying right bundle branch block pattern. We will proceed with Lexiscan nuclear stress test tomorrow to rule out significant obstructive ischemia. Paroxysmal atrial fibrillation already on Eliquis. Patient lapsed into A. fib with RVR during admission. Amnio drip was started but patient remained in A. fib, however, it is rate controlled. I suspect she will ultimately convert to normal sinus rhythm. Amiodarone changed to p.o. Has been receiving diuresis with persistent pleural effusions. Recommend ultrasound for possible thoracentesis. Admission and Anticipated Discharge Date Admission Date: June 25, 2022 Subjective Patient seen and examined. Chart reviewed. Telemetry reviewed. Family at bedside. Patient states that she feels well today but still very weak. Review of Systems Review of Systems: All systems reviewed & are unremarkable except as noted in HPI & below Physical Exam 2 Physical Exam: General: Awake, alert and oriented x 3. Mild conversational dyspnea on oxygen mask. Patient is very ill and frail in appearance. HEENT: Normocephalic, atraumatic. Pupils equal, round and reactive to light and accommodation. Extraocular muscles are intact. Anicteric sclera. Moist mucous membranes. Neck: No JVD. No bruit. Cardiovascular: Regular. Positive S-4. Normal S-1 and S-2. No S-3. 3/6 holosystolic ejection murmur, left sternal border, mid-clavicular line with radiation to the axilla. No rubs. Pulmonary: Poor air movement with diffuse rhonchi and bibasilar rales Abdomen: Bowel sounds x 4, soft. No rebound, guarding or tenderness. No organomegaly. Extremities: No clubbing, cyanosis or edema. +2 pedal pulses bilaterally. Skin: Warm and dry. Results & Data ([facility]) Vital Signs (Past 12 Hours) Vital Signs Temp Pulse Pulse Pulse Resp BP BP 06/28/22 11:59 36.9 C 73 18 105/56 L 06/28/22 10:45 06/28/22 08:00 97 H 06/28/22 08:00 36.8 C 73 18 98/63 L 06/28/22 06:08 86 102/69 06/28/22 04:40 105 H 06/28/22 03:46 88/57 L 06/28/22 03:45 36.6 C 105 H 18 79/43 L Pulse Ox O2 Del Method 06/28/22 11:59 96 06/28/22 10:45 Room Air 06/28/22 08:00 06/28/22 08:00 95 06/28/22 06:08 06/28/22 04:40 06/28/22 03:46 93 06/28/22 03:45 94 Room Air
[2022-06-28] MEDS: AMIODARONE 200 MG TAB PO SCH ×2 (14:20→20:57)
--- NOTE | 2022-06-28 16:34 | Electrocardiogram Report ---
Test Reason : Blood Pressure : / mmHG Vent. Rate : 115 BPM Atrial Rate : 133 BPM P-R Int : 000 ms QRS Dur : 096 ms QT Int : 342 ms P-R-T Axes : 000 118 246 degrees QTc Int : 473 ms Atrial fibrillation with rapid ventricular response with premature ventricular or aberrantly conducte d complexes Low voltage QRS Left posterior fascicular block Abnormal ECG When compared with ECG of 25-JUN-2022 03:50, Significant changes have occurred Confirmed by Hans Danielle ([id number]) on 06/28/2022 4:33:53 PM Referred By: REFERRED SELF Confirmed By:Hans Danielle
--- NOTE | 2022-06-28 16:52 | Electrocardiogram Report ---
Test Reason : Blood Pressure : / mmHG Vent. Rate : 090 BPM Atrial Rate : 127 BPM P-R Int : 000 ms QRS Dur : 098 ms QT Int : 418 ms P-R-T Axes : 000 117 227 degrees QTc Int : 511 ms Atrial fibrillation with premature ventricular or aberrantly conducted complexes Low voltage QRS Left posterior fascicular block Septal infarct , age undetermined Prolonged QT Abnormal ECG When compared with ECG of 27-JUN-2022 09:57, (unconfirmed) Septal infarct is now Present Confirmed by Hans Danielle ([id number]) on 06/28/2022 4:52:40 PM Referred By: REFERRED SELF Confirmed By:Hans Danielle
[2022-06-28] MEDS: CEFEPIME 2,000 MG in SYRINGE 0 ML IV SCH (20:56)
[2022-06-28] MEDS: guaiFENesin 600 MG TABCR PO SCH (20:57)
[2022-06-29] MEDS ORDERED: LEVOTHYROXINE SODIUM 100 MCG TABLET PO SCH (06:30)
--- NOTE | 2022-06-29 08:18 | Hospitalist Progress Note ---
Date of Service June 29, 2022 Assessment & Plan (1) Acute hypoxemic respiratory failure: Plan: Decompensated heart failure Present on admission with worsening SOB CXR showed interval development of pulmonary edema with small bilateral pleural effusions. CTA chest showed no pulmonary emboli identified. Moderate interstitial pulmonary edema. Multifocal airspace opacities within lungs favor alveolar pulmonary edema however pneumonia could appear similar. Covid 19, RSV and influenza are negative on admission Elevated WBC and lactic acid Procalcitonin normal received Azithromycin and ceftriaxone in the ER Continue IV cefepime cardiology consult ECHO showed normal LV chamber size and wall motion at the base levels with progressive apical ballooning pattern and akinesis with EF 20 to 25% She was weaned off the oxygen supplement Saturating well on room air Continue I/O Lexiscan nuclear stress test tomorrow to rule out significant obstructive ischemia Pulmonary medicine consulted for pl. effusions, poss. thoracentesis Eliquis on hold Elevated lactic acid Possible related to acute respiratory failure due to pulmonary edema vs pneumonia lactic acid on admission 3.8 then 2.5 -->0.8 WBC decreased from 22K to 12K Continue IV abx with Cefepime Blood cx no growth and urine cx grew multiples organisms Repeat urine culture negative Monitor CBC Elevated troponin Mostly demand ischemia due to acute respiratory failure Troponin 1790, then 1623 received Aspirin 325mg in the ER Continue Metoprolol 25mg BID and Eliquis Denies any chest pain Afib Converted to A. fib (06/27) EKG done shown PVC with A. fib Case discussed with cardiology recommend to start on amiodarone drip Amiodarone started Continued Eliquis and metoprolol Continue monitor closely in telemetry Eliquis on hold for now for poss. procedure Hypothyroidism: Continue levothyroxine TSH WNL DVT prophylaxis SCD Continue Eliquis Left breast cancer S/P surgery and radiation therapy Continue Tamoxifen Code status full code Patient's : Mr. Jam Khoury, contact #[phone]. Admission and Anticipated Discharge Date Admission Date: June 25, 2022 Subjective Pt was seen and examined for follow up of acute respiratory distress Currently sitting up in chair in NAD saturating well on RA. Reports feeling better Pt's daughter at the bedside and updated. Currently pt denies any fever, chills, chest pain, palpitations, or shortness of breath. Review of Systems Review of Systems: All systems reviewed & are unremarkable except as noted in Subjective Physical Exam Physical Exam: General- acute respiratory distress Head- atraumatic Eyes- PERRL, EOMI, ENT- oropharynx clear Neck- supple, no JVD Lungs- +diminished BS at the bases, no wheezing Heart- irregular rhythm; +murmur Abdomen- normal bowel sounds, soft, nontender Extremities- moves extremities, no significant edema noted Neuro- alert, awake, PERRL, EOMI; no facial palsy; no dysarthria Skin- warm & dry Results & Data Results & Data ([facility]) Vital Signs (Past 12 Hours) Vital Signs Temp Pulse Pulse Resp BP BP Pulse Ox 06/29/22 08:11 36.6 C 103 H 18 116/75 94 06/29/22 03:29 36.7 C 90 18 91/67 L 94 06/28/22 22:42 36.6 C 102 H 18 96/67 L 95 06/28/22 21:03 36.7 C 104 H 16 101/58 L 94 O2 Del Method 06/29/22 08:11 06/29/22 03:29 Room Air 06/28/22 22:42 Room Air 06/28/22 21:03 Room Air Laboratory Results 06/29/22 06/29/22 Range/Units 08:35 08:35 WBC 12.21 H (4.8-10.8) K/ul RBC 4.20 (3.93-5.22) M/uL Hgb 13.5 (12.0-16.0) g/dl Hct 37.9 (34.1-44.9) % MCV 90.2 (80.0-100.0) fL MCH 32.1 (25.0-34.0) pg MCHC 35.6 (32.0-36.0) g/dL RDW Std Deviation 41.4 (36.4-46.3) fL RDW Coeff of Carter 12.6 (11.5-14.5) % Plt Count 149 (130-400) K/uL MPV 10.3 (9.4-12.3) fL Sodium 135 L (136-145) mmol/L Potassium 4.4 (3.5-5.1) mmol/L Chloride 102 (98-107) mmol/L Carbon Dioxide 26 (21-32) mmol/L Anion Gap 7 (3-11) BUN 33 H (6-23) mg/dl Creatinine 1.05 (0.6-1.2) mg/dl Est Cr Clr Drug Dosing 35.1 ml/min Est GFR ( Amer) 56.9 ml/min Est GFR (Non-Af Amer) 49.1 ml/min BUN/Creatinine Ratio 31.4 H (10-20) Glucose 165 H (70-99(Fasting)) mg/dl Calcium 8.0 L (8.5-10.1) mg/dl Phosphorus 1.8 L (2.5-4.9) mg/dl Magnesium 2.4 (1.7-2.4) mg/dl Medications Administered Current Inpatient Medications Acetaminophen (Acetaminophen 325 Mg Tab) 650 mg PO Q4H PRN PRN Reason: Pain or Fever Stop: 07/25/22 08:40 Amiodarone HCl (Amiodarone 200 Mg Tab) 400 mg PO BID [facility] Stop: 07/28/22 12:44 Last Admin: 06/28/22 20:57 Dose: 400 mg Apixaban (Apixaban 2.5 Mg Tab) 2.5 mg PO BID [facility] Stop: 07/25/22 20:59 Last Admin: 06/28/22 08:21 Dose: 2.5 mg Fluticasone Propionate (Fluticasone Propionate Na Spr 16 Gm Btl) 2 sprays NA QAM PRN PRN Reason: as directed Stop: 07/25/22 08:40 Furosemide (Furosemide 40 Mg/4 Ml Vial) 40 mg IV [id number] [facility] Stop: 07/25/22 14:24 Last Admin: 06/25/22 14:59 Dose: 40 mg Guaifenesin (Guaifenesin 600 Mg Tabcr) 600 mg PO Q12 [facility] Stop: 07/28/22 20:59 Last Admin: 06/28/22 20:57 Dose: 600 mg Promethazine HCl 6.25 mg/ (Sodium Chloride) 50.25 mls @ 201 mls/hr IV Q6H PRN PRN Reason: Nausea And Vomiting Stop: 07/25/22 06:46 Cefepime HCl 2,000 mg/ Syringe 20 mls @ 5 mls/min IV Q12H [facility]; Protocol Stop: 07/05/22 20:59 Last Admin: 06/28/22 20:56 Dose: 5 mls/min Levothyroxine Sodium (Levothyroxine Sodium 200 Mcg Tablet) 200 mcg PO [id number] [facility] Stop: 07/25/22 08:40 Last Admin: 06/28/22 06:04 Dose: 200 mcg Levothyroxine Sodium (Levothyroxine Sodium 100 Mcg Tablet) 100 mcg PO Th@0630 [facility] Stop: 07/29/22 06:29 Last Admin: 06/29/22 06:05 Dose: 100 mcg Lisinopril (Lisinopril 10 Mg Tab) 10 mg PO QAM [facility] Stop: 07/25/22 08:59 Last Admin: 06/25/22 09:12 Dose: 10 mg Metoprolol Succinate (Metoprolol Succ 25mg Ext Rel Tab) 25 mg PO AMHS [facility] Stop: 07/25/22 08:59 Last Admin: 06/28/22 20:57 Dose: 25 mg Miscellaneous (Tacrolimus 0.03% Ointment: Order Awaiting Action) 1 each N/A QS [facility] Stop: 07/25/22 15:59 Last Admin: 06/28/22 15:18 Dose: Not Given Multivitamins (Multivitamin Tab) 1 tab PO QDL [facility] Stop: 07/25/22 11:29 Last Admin: 06/28/22 11:30 Dose: 1 tab Olanzapine (Olanzapine 10 Mg/2.1 Ml Sdv) 2.5 mg IM Q4H PRN PRN Reason: Anxiety/Agitation Stop: 07/26/22 02:46 Tamoxifen Citrate (Tamoxifen Citrate 10 Mg Tablet) 20 mg PO DAILY [facility] Stop: 07/25/22 08:59 Last Admin: 06/28/22 08:22 Dose: 20 mg Timolol Maleate (Timolol Maleate 0.5% Op Soln 5 Ml Btl) 1 drops OP BID [facility] Stop: 07/25/22 08:59 Last Admin: 06/28/22 20:57 Dose: 1 drops Tramadol HCl (Tramadol Hcl 50 Mg Tablet) 25 - 50 mg PO Q4H PRN PRN Reason: Pain Stop: 07/25/22 06:46 Vitamin B Complex (Vitamin B Complex Tab) 1 tab PO QAM [facility] Stop: 07/25/22 08:59 Last Admin: 06/28/22 08:22 Dose: 1 tab
[2022-06-29] MEDS: AMIODARONE 200 MG TAB PO SCH ×2 (09:13→20:18)
[2022-06-29] MEDS: METOPROLOL SUCC 25MG EXT REL TAB PO SCH ×2 (09:13→20:19)
[2022-06-29] MEDS: guaiFENesin 600 MG TABCR PO SCH ×2 (09:13→20:18)
[2022-06-29] MEDS: TIMOLOL MALEATE 0.5% OP SOLN 5 ML BTL OP SCH ×2 (09:14→20:17)
[2022-06-29] MEDS: TAMOXIFEN CITRATE 10 MG TABLET PO SCH (09:14)
[2022-06-29] MEDS: CEFEPIME 2,000 MG in SYRINGE 0 ML IV SCH ×2 (09:19→20:19)
[2022-06-29 09:22] LABS: Hematocrit (blood only) 37.9 % (34.1-44.9); Hemoglobin 13.5 g/dl (12.0-16.0); Mean Corpuscular Hemoglobin 32.1 pg (25.0-34.0); Mean Corpuscular Hgb Conc 35.6 g/dL (32.0-36.0); Mean Corpuscular Volume 90.2 fL (80.0-100.0); Mean Platelet Volume 10.3 fL (9.4-12.3); Platelet Count 149 K/uL (130-400); RDW Coefficient of Variation 12.6 % (11.5-14.5); RDW Standard Deviation 41.4 fL (36.4-46.3); White Blood Count 12.21 K/ul (4.8-10.8)
[2022-06-29 10:00] LABS: BUN Creatinine Ratio 31.4 (10-20); Creatinine Clr Calc Pharmacy 35.1 ml/min; Est GFR (African American) 56.9 ml/min; Est GFR (Non-African American) 49.1 ml/min; Magnesium 2.4 mg/dl (1.7-2.4); Phosphorus 1.8 mg/dl (2.5-4.9); Potassium 4.4 mmol/L (3.5-5.1)
[2022-06-29] MEDS: VITAMIN B COMPLEX TAB PO SCH (10:15)
[2022-06-29] MEDS: MULTIVITAMIN TAB PO SCH (11:34)
[2022-06-29] MEDS ORDERED: ALBUMIN 25% 100 mL 25 GM/100 ML VIAL IV ONE (11:52)
[2022-06-29] MEDS ORDERED: POLYETHYLENE (MIRALAX) 17 GM PACK PO PRN (12:36)
--- NOTE | 2022-06-29 13:05 | Cardiology Progress Note ---
Date of Service June 29, 2022 Assessment & Plan (1) PAF (paroxysmal atrial fibrillation): (2) Acute hypoxemic respiratory failure: (3) Elevated troponin: (4) Acute UTI (urinary tract infection): (5) Malignant neoplasm of central portion of left breast in female, estrogen receptor positive: Plan It was my pleasure to see Mrs. Khoury in cardiac consultation today. Her presenting symptoms are atypical for that of unstable angina but 2D echocardiogram does reveal severely reduced LV systolic function with an apical ballooning pattern. Differential diagnosis would be Takotsubo cardiomyopathy versus left main disease. She has a history of tachycardia induced cardiomyopathy but is remained in normal sinus rhythm with a normal underlying right bundle branch block pattern. Unfortunately, the patient ate breakfast after not being made n.p.o. so Lexiscan nuclear stress test is postponed We will proceed with Lexiscan nuclear stress test tomorrow to rule out significant obstructive ischemia. Paroxysmal atrial fibrillation already on Eliquis. Patient lapsed into A. fib with RVR during admission. Continue p.o. amiodarone I suspect she will ultimately convert to normal sinus rhythm. Is rate controlled appreciate pulmonary input Admission and Anticipated Discharge Date Admission Date: June 25, 2022 Subjective Patient seen and examined. Chart reviewed. Telemetry reviewed. Case discussed with bedside nursing. States that she is feeling much better today Review of Systems Review of Systems: All systems reviewed & are unremarkable except as noted in HPI & below Physical Exam Physical Exam: General: Awake, alert and oriented x 3. No acute distress HEENT: Normocephalic, atraumatic. Pupils equal, round and reactive to light and accommodation. Extraocular muscles are intact. Anicteric sclera. Moist mucous membranes. Neck: No JVD. No bruit. Cardiovascular: Regular. Positive S-4. Normal S-1 and S-2. No S-3. 3/6 holosystolic ejection murmur, left sternal border, mid-clavicular line with radiation to the axilla. No rubs. Pulmonary: Poor air movement with diffuse rhonchi and bibasilar rales Abdomen: Bowel sounds x 4, soft. No rebound, guarding or tenderness. No organomegaly. Extremities: No clubbing, cyanosis or edema. +2 pedal pulses bilaterally. Skin: Warm and dry. Results & Data ([facility]) Vital Signs (Past 12 Hours) Vital Signs Temp Pulse Pulse Pulse Resp BP BP 06/29/22 11:45 36.3 C L 91 H 18 89/54 L 06/29/22 09:06 94 H 06/29/22 08:11 36.6 C 103 H 18 116/75 06/29/22 03:29 36.7 C 90 18 91/67 L Pulse Ox O2 Del Method 06/29/22 11:45 98 Room Air 06/29/22 09:06 06/29/22 08:11 94 06/29/22 03:29 94 Room Air
[2022-06-29] MEDS: SENNA 8.6 MG TAB PO SCH (13:09)
[2022-06-29] MEDS: POT PHOSPHATE MONOBASIC W/ SOD TAB PO SCH ×3 (13:09→20:17)
[2022-06-30] MEDS: LEVOTHYROXINE SODIUM 200 MCG TABLET PO SCH (05:15)
[2022-06-30 06:39] LABS: Hematocrit (blood only) 36.1 % (34.1-44.9); Hemoglobin 12.6 g/dl (12.0-16.0); Mean Corpuscular Hemoglobin 32.1 pg (25.0-34.0); Mean Corpuscular Hgb Conc 34.9 g/dL (32.0-36.0); Mean Corpuscular Volume 92.1 fL (80.0-100.0); Mean Platelet Volume 10.2 fL (9.4-12.3); Platelet Count 153 K/uL (130-400); RDW Coefficient of Variation 12.6 % (11.5-14.5); RDW Standard Deviation 42.5 fL (36.4-46.3); Red Blood Count 3.92 M/uL (3.93-5.22); White Blood Count 9.86 K/ul (4.8-10.8)
[2022-06-30 07:03] LABS: BUN Creatinine Ratio 26.8 (10-20); Calcium 7.8 mg/dl (8.5-10.1); Creatinine Clr Calc Pharmacy 37.9 ml/min; Est GFR (African American) 62.6 ml/min; Magnesium 2.4 mg/dl (1.7-2.4); Phosphorus 1.9 mg/dl (2.5-4.9); Potassium 4.4 mmol/L (3.5-5.1)
[2022-06-30] MEDS ORDERED: REGADENOSON 0.4 MG/5 ML SYR IV ONE (07:45)
--- NOTE | 2022-06-30 08:15 | Hospitalist Progress Note ---
Date of Service June 30, 2022 Assessment & Plan (1) Acute hypoxemic respiratory failure: Plan: Decompensated heart failure Present on admission with worsening SOB CXR showed interval development of pulmonary edema with small bilateral pleural effusions. CTA chest showed no pulmonary emboli identified. Moderate interstitial pulmonary edema. Multifocal airspace opacities within lungs favor alveolar pulmonary edema however pneumonia could appear similar. Covid 19, RSV and influenza are negative on admission Elevated WBC and lactic acid Procalcitonin normal received Azithromycin and ceftriaxone in the ER Continue IV cefepime cardiology consult ECHO showed normal LV chamber size and wall motion at the base levels with progressive apical ballooning pattern and akinesis with EF 20 to 25% She was weaned off the oxygen supplement Saturating well on room air Continue I/O s/p Lexiscan nuclear stress test today (06/30) Nuclear stress testing was nonischemic and also showed improvement of overall LV systolic function, now low normal 50 to 55%. Cardiology office will call to arrange follow-up in 1 month with repeat echocardiogram to follow EF DC to home on current medical regimen. For Paroxysmal atrial fibrillation - continue Eliquis. Continue p.o. amiodarone at 200 mg twice daily upon discharge Pulmonary medicine consulted for pl. effusions S/p R sided thoracentesis 420 cc removed, follow pl. fluid studies likely secondary to CHF Elevated lactic acid Possible related to acute respiratory failure due to pulmonary edema vs pneumonia lactic acid on admission 3.8 then 2.5 -->0.8 WBC decreased from 22K to 12K Continue IV abx with Cefepime Blood cx no growth and urine cx grew multiples organisms Repeat urine culture negative Monitor CBC Elevated troponin Mostly demand ischemia due to acute respiratory failure Troponin 1790, then 1623 received Aspirin 325mg in the ER Continue Metoprolol 25mg BID and Eliquis Denies any chest pain Afib Converted to A. fib (06/27) EKG done shown PVC with A. fib Case discussed with cardiology recommend to start on amiodarone drip Amiodarone started - Continue p.o. amiodarone at 200 mg twice daily upon discharge Continued Eliquis and metoprolol Continue monitor closely in telemetry Converted back to sinus rhythm Hypothyroidism: Continue levothyroxine TSH WNL DVT prophylaxis SCD Continue Eliquis Left breast cancer S/P surgery and radiation therapy Continue Tamoxifen Code status full code Patient's : Mr. Jam Khoury, contact #[phone]. Admission and Anticipated Discharge Date Admission Date: June 25, 2022 Subjective Pt was seen and examined for follow up of acute respiratory distress Patient was seen in her room, right after her nuclear stress test. She feels alright, reports that she had some nausea, but that has resolved. Denies any chest pain palpitations or shortness of breath. Denies fevers or chills. Currently sitting up in bed in NAD saturating well on RA. Pt's daughter was present at the bedside yesterday and was updated. Review of Systems Review of Systems: All systems reviewed & are unremarkable except as noted in Subjective Physical Exam Physical Exam: General- acute respiratory distress Head- atraumatic Eyes- PERRL, EOMI, ENT- oropharynx clear Neck- supple, no JVD Lungs- +diminished BS at the bases, no wheezing Heart- rrr; +murmur Abdomen- normal bowel sounds, soft, nontender Extremities- moves extremities, no significant edema noted Neuro- alert, awake, PERRL, EOMI; no facial palsy; no dysarthria Skin- warm & dry Results & Data Results & Data ([facility]) Vital Signs (Past 12 Hours) Vital Signs Temp Pulse Pulse Resp BP BP Pulse Ox 06/30/22 08:04 36.6 C 89 18 104/73 96 06/30/22 07:55 88 06/30/22 03:23 36.7 C 81 18 97/64 L 95 06/29/22 23:13 36.7 C 81 18 102/70 95 06/29/22 22:11 80 06/29/22 20:15 89 105/75 O2 Del Method 06/30/22 08:04 Room Air 06/30/22 07:55 06/30/22 03:23 Room Air 06/29/22 23:13 Room Air 06/29/22 22:11 06/29/22 20:15 Laboratory Results 06/30/22 06/30/22 06/29/22 Range/Units 05:56 05:56 08:35 WBC 9.86 (4.8-10.8) K/ul RBC 3.92 L (3.93-5.22) M/uL Hgb 12.6 (12.0-16.0) g/dl Hct 36.1 (34.1-44.9) % MCV 92.1 (80.0-100.0) fL MCH 32.1 (25.0-34.0) pg MCHC 34.9 (32.0-36.0) g/dL RDW Std Deviation 42.5 (36.4-46.3) fL RDW Coeff of Carter 12.6 (11.5-14.5) % Plt Count 153 (130-400) K/uL MPV 10.2 (9.4-12.3) fL Sodium 136 135 L (136-145) mmol/L Potassium 4.4 4.4 (3.5-5.1) mmol/L Chloride 103 102 (98-107) mmol/L Carbon Dioxide 28 26 (21-32) mmol/L Anion Gap 5 7 (3-11) BUN 26 H 33 H (6-23) mg/dl Creatinine 0.97 1.05 (0.6-1.2) mg/dl Est Cr Clr Drug Dosing 37.9 35.1 ml/min Est GFR ( Amer) 62.6 56.9 ml/min Est GFR (Non-Af Amer) 54.0 49.1 ml/min BUN/Creatinine Ratio 26.8 H 31.4 H (10-20) Glucose 95 165 H (70-99(Fasting)) mg/dl Calcium 7.8 L 8.0 L (8.5-10.1) mg/dl Phosphorus 1.9 L 1.8 L (2.5-4.9) mg/dl Magnesium 2.4 2.4 (1.7-2.4) mg/dl 06/29/22 Range/Units 08:35 WBC 12.21 H (4.8-10.8) K/ul RBC 4.20 (3.93-5.22) M/uL Hgb 13.5 (12.0-16.0) g/dl Hct 37.9 (34.1-44.9) % MCV 90.2 (80.0-100.0) fL MCH 32.1 (25.0-34.0) pg MCHC 35.6 (32.0-36.0) g/dL RDW Std Deviation 41.4 (36.4-46.3) fL RDW Coeff of Carter 12.6 (11.5-14.5) % Plt Count 149 (130-400) K/uL MPV 10.3 (9.4-12.3) fL Sodium (136-145) mmol/L Potassium (3.5-5.1) mmol/L Chloride (98-107) mmol/L Carbon Dioxide (21-32) mmol/L Anion Gap (3-11) BUN (6-23) mg/dl Creatinine (0.6-1.2) mg/dl Est Cr Clr Drug Dosing ml/min Est GFR ( Amer) ml/min Est GFR (Non-Af Amer) ml/min BUN/Creatinine Ratio (10-20) Glucose (70-99(Fasting)) mg/dl Calcium (8.5-10.1) mg/dl Phosphorus (2.5-4.9) mg/dl Magnesium (1.7-2.4) mg/dl Medications Administered Current Inpatient Medications Acetaminophen (Acetaminophen 325 Mg Tab) 650 mg PO Q4H PRN PRN Reason: Pain or Fever Stop: 07/25/22 08:40 Amiodarone HCl (Amiodarone 200 Mg Tab) 400 mg PO BID [facility] Stop: 07/28/22 12:44 Last Admin: 06/29/22 20:18 Dose: 400 mg Apixaban (Apixaban 2.5 Mg Tab) 2.5 mg PO BID [facility] Stop: 07/25/22 20:59 Last Admin: 06/28/22 08:21 Dose: 2.5 mg Fluticasone Propionate (Fluticasone Propionate Na Spr 16 Gm Btl) 2 sprays NA QAM PRN PRN Reason: as directed Stop: 07/25/22 08:40 Furosemide (Furosemide 40 Mg/4 Ml Vial) 40 mg IV BID17 [facility] Stop: 07/25/22 14:24 Last Admin: 06/25/22 14:59 Dose: 40 mg Guaifenesin (Guaifenesin 600 Mg Tabcr) 600 mg PO Q12 [facility] Stop: 07/28/22 20:59 Last Admin: 06/29/22 20:18 Dose: 600 mg Promethazine HCl 6.25 mg/ (Sodium Chloride) 50.25 mls @ 201 mls/hr IV Q6H PRN PRN Reason: Nausea And Vomiting Stop: 07/25/22 06:46 Cefepime HCl 2,000 mg/ Syringe 20 mls @ 5 mls/min IV Q12H [facility]; Protocol Stop: 07/05/22 20:59 Last Admin: 06/29/22 20:19 Dose: 5 mls/min Levothyroxine Sodium (Levothyroxine Sodium 200 Mcg Tablet) 200 mcg PO [id number] [facility] Stop: 07/25/22 08:40 Last Admin: 06/30/22 05:15 Dose: Not Given Levothyroxine Sodium (Levothyroxine Sodium 100 Mcg Tablet) 100 mcg PO Th@0630 [facility] Stop: 07/29/22 06:29 Last Admin: 06/29/22 06:05 Dose: 100 mcg Lisinopril (Lisinopril 10 Mg Tab) 10 mg PO QAM [facility] Stop: 07/25/22 08:59 Last Admin: 06/25/22 09:12 Dose: 10 mg Metoprolol Succinate (Metoprolol Succ 25mg Ext Rel Tab) 25 mg PO AMHS [facility] Stop: 07/25/22 08:59 Last Admin: 06/29/22 20:19 Dose: 25 mg Miscellaneous (Tacrolimus 0.03% Ointment: Order Awaiting Action) 1 each N/A QS [facility] Stop: 07/25/22 15:59 Last Admin: 06/30/22 07:57 Dose: Not Given Multivitamins (Multivitamin Tab) 1 tab PO QDL [facility] Stop: 07/25/22 11:29 Last Admin: 06/29/22 11:34 Dose: 1 tab Olanzapine (Olanzapine 10 Mg/2.1 Ml Sdv) 2.5 mg IM Q4H PRN PRN Reason: Anxiety/Agitation Stop: 07/26/22 02:46 Polyethylene Glycol (Polyethylene (Miralax) 17 Gm Pack) 17 gm PO DAILY PRN PRN Reason: Constipation Stop: 07/29/22 12:35 Last Admin: 06/29/22 13:55 Dose: 17 gm Potassium Phosphate (Pot Phosphate Monobasic W/ Sod Tab) 1 tab PO QID [facility] Stop: 07/29/22 12:59 Last Admin: 06/29/22 20:17 Dose: 1 tab Sennosides (Senna 8.6 Mg Tab) 8.6 mg PO QAM [facility] Stop: 07/29/22 12:44 Last Admin: 06/29/22 13:09 Dose: 8.6 mg Tamoxifen Citrate (Tamoxifen Citrate 10 Mg Tablet) 20 mg PO DAILY [facility] Stop: 07/25/22 08:59 Last Admin: 06/29/22 09:14 Dose: 20 mg Timolol Maleate (Timolol Maleate 0.5% Op Soln 5 Ml Btl) 1 drops OP BID [facility] Stop: 07/25/22 08:59 Last Admin: 06/29/22 20:17 Dose: 1 drops Tramadol HCl (Tramadol Hcl 50 Mg Tablet) 25 - 50 mg PO Q4H PRN PRN Reason: Pain Stop: 07/25/22 06:46 Vitamin B Complex (Vitamin B Complex Tab) 1 tab PO QAM [facility] Stop: 07/25/22 08:59 Last Admin: 06/29/22 10:15 Dose: 1 tab
[2022-06-30] MEDS: AMIODARONE 200 MG TAB PO SCH ×2 (10:44→20:59)
[2022-06-30] MEDS: guaiFENesin 600 MG TABCR PO SCH ×2 (10:45→21:01)
[2022-06-30] MEDS: CEFEPIME 2,000 MG in SYRINGE 0 ML IV SCH ×2 (10:45→21:04)
[2022-06-30] MEDS: METOPROLOL SUCC 25MG EXT REL TAB PO SCH ×2 (10:45→21:02)
[2022-06-30] MEDS: SENNA 8.6 MG TAB PO SCH (10:46)
[2022-06-30] MEDS: POT PHOSPHATE MONOBASIC W/ SOD TAB PO SCH ×4 (10:46→21:00)
[2022-06-30] MEDS: TAMOXIFEN CITRATE 10 MG TABLET PO SCH (10:47)
[2022-06-30] MEDS: TIMOLOL MALEATE 0.5% OP SOLN 5 ML BTL OP SCH ×2 (10:47→21:04)
[2022-06-30] MEDS: MULTIVITAMIN TAB PO SCH (10:48)
[2022-06-30] MEDS: VITAMIN B COMPLEX TAB PO SCH (10:48)
--- NOTE | 2022-06-30 13:26 | Procedure Note ---
Procedure Note Date of Service June 30, 2022 Note Procedure: Right diagnostic and therapeutic ultrasound-guided catheter thoracentesis Iron Setter: Dr. Tray Valdez Indication: Pleural effusion Consent: Signed by patient and verified with timeout prior to procedure Anesthesia: 8 mL's of 1% lidocaine without epinephrine given locally Procedure: Consent was verified and timeout performed. Appropriate imaging studies were reviewed prior to the procedure. Patient was placed in a seated position and limited thoracic ultrasound was performed of the right chest. See separate imaging. The site appropriate for thoracentesis was selected. The skin was prepped and draped in normal sterile fashion. Lidocaine was used for local analgesia. Fluid was aspirated via the finder needle. A small skin daquan was made with the scalpel and the catheter over the needle apparatus was advanced over the rib into the pleural space. Using the syringe one-way valve system, a total of 420 mL's of yellow fluid was removed. Procedure was terminated due to lack of flow. The catheter was removed and observed to be intact. A sterile dressing was applied. Post procedure chest x-ray was ordered. Fluid was sent for LDH, total protein, cell count, glucose, pH, cytology, AFB cultures, gram stain and culture and fungal cultures. The patient tolerated the procedure well without obvious complication Coding CPT Codes Pulmonary/Thoracic - Pulmonary and Thoracic: 12332 Thoracentesis w imaging ([id number]) [facility] Codes (Charges) Pulmonary/Thoracic Procedure 1: Pulmonary and Thoracic: 69508 Thoracentesis w imaging
--- NOTE | 2022-06-30 13:32 | Pulmonology Progress Note ---
Date of Service June 30, 2022 Assessment & Plan (1) Bilateral pleural effusion: Plan: Right thoracentesis performed. Pleural fluid studies sent. Likely secondary to diastolic CHF. Left pleural effusion appears very small. Recommend continued diuresis, daily weight checks and low-salt diet. Please follow-up the cytology from pleural fluid. This can be done by her primary care physician and if there are concerns, can refer to outpatient pulmonary. (2) Heart failure, diastolic, with acute decompensation: Plan: Continue with diuretic therapy as able. (3) Hypoxia: Plan: Secondary to atelectasis and CHF. (4) PAF (paroxysmal atrial fibrillation): Plan: Okay to restart Eliquis this evening. Admission and Anticipated Discharge Date Admission Date: June 25, 2022 Subjective Patient denies any shortness of breath, but her mobility has been limited while in the hospital. She denies any cough. No fevers, chills or night sweats. She is saturating well on room air. Review of Systems Review of Systems: All systems reviewed & are unremarkable except as noted in HPI & below Physical Exam Physical Exam: Constitutional: Patient appears to be of their stated age. Patient is in no apparent distress. Patient is well-developed. Eyes: Pupils are equal round and reactive to light. Conjunctivae are normal. Anicteric sclera. Ears nose, mouth and throat: Mallampati class 2. Normal posterior oropharynx. Uvula is midline. Neck: Trachea is midline. Visual inspection is normal. Respiratory: Bibasilar crackles. Diminished bilaterally. Cardiovascular: Regular rate and rhythm. No murmurs. No edema. Gastrointestinal: Normal bowel sounds, soft, nontender and nondistended. No hepatosplenomegaly noted. Musculoskeletal: No cyanosis. Patient is able to move all extremities. Strength is 5 out of 5 in the upper and lower extremities. Skin: No rashes, warm dry and intact. Neurologic: No obvious focal neurological deficits seen. Psychiatric: Alert and oriented x3 with a euthymic affect. Results & Data Results & Data ([facility]) Vital Signs (Past 12 Hours) Vital Signs Temp Pulse Pulse Resp BP BP Pulse Ox 06/30/22 11:43 36.6 C 73 18 108/76 99 06/30/22 08:04 36.6 C 89 18 104/73 96 06/30/22 07:55 88 06/30/22 03:23 36.7 C 81 18 97/64 L 95 O2 Del Method 06/30/22 11:43 06/30/22 08:04 Room Air 06/30/22 07:55 06/30/22 03:23 Room Air PG Care Time/CCT Total # of Minutes Spent Total Time Spent with Patient: Total time spent is greater than 50% in coordination of care (as documented) at patient's floor/unit and/or counseling patient: Coding Level of Care Code 29470 Subseq Hosp Care Lvl 3 Diagnoses Bilateral pleural effusion J90 Heart failure, diastolic, with acute decompensation I50.33 Hypoxia R09.02 PAF (paroxysmal atrial fibrillation) I48.0
--- NOTE | 2022-06-30 13:51 | XRay Report ---
XR chest 1V portable HISTORY: S/P Thoracentesis COMPARISON: Chest 06/28/2022. FINDINGS: The patient is status post thoracentesis. No pneumothorax. No significant right pleural eff usion. The heart remains moderately enlarged. No evidence for pulmonary edema. No change in the small left pleural effusion and left basilar densities. IMPRESSION: 1. Interval resolution of the right pleural effusion. 2. No pneumothorax. 3. Small left pleural effusion/densities persist. ACT 112: Negative or not required by law. Electronically signed by: Colin Garcia M.D. 06/30/2022 1:49 PM
[2022-06-30 13:54] LABS: Appearance Pleural Fluid Cloudy; Color Pleural Fluid Yellow; RBC Pleural Fluid (A) < 2000 /uL; Source Pleural Fluid Right Lung; WBC Pleural Fluid (A) 1227 /uL
--- NOTE | 2022-06-30 14:10 | Cardiology Progress Note ---
Date of Service June 30, 2022 Assessment & Plan (1) PAF (paroxysmal atrial fibrillation): (2) Acute hypoxemic respiratory failure: (3) Elevated troponin: (4) Acute UTI (urinary tract infection): (5) Malignant neoplasm of central portion of left breast in female, estrogen receptor positive: Plan Nuclear stress testing was nonischemic and also showed improvement of overall LV systolic function, now low normal 50 to 55%. No further cardiac test intervention necessary at this time. Okay to DC to home on current medical regimen. My office will call to arrange follow-up in 1 month with repeat echocardiogram to follow EF Paroxysmal atrial fibrillation already on Eliquis. Continue p.o. amiodarone at 200 mg twice daily upon discharge Admission and Anticipated Discharge Date Admission Date: June 25, 2022 Subjective Patient seen and examined. Chart reviewed. Telemetry reviewed. States that she is feeling much better today. Spontaneously converted to normal sinus rhythm. Review of Systems Review of Systems: All systems reviewed & are unremarkable except as noted in HPI & below Physical Exam Physical Exam: General: Awake, alert and oriented x 3. No acute distress HEENT: Normocephalic, atraumatic. Pupils equal, round and reactive to light and accommodation. Extraocular muscles are intact. Anicteric sclera. Moist mucous membranes. Neck: No JVD. No bruit. Cardiovascular: Regular. Positive S-4. Normal S-1 and S-2. No S-3. 3/6 holosystolic ejection murmur, left sternal border, mid-clavicular line with radiation to the axilla. No rubs. Pulmonary: Poor air movement with diffuse rhonchi and bibasilar rales Abdomen: Bowel sounds x 4, soft. No rebound, guarding or tenderness. No organomegaly. Extremities: No clubbing, cyanosis or edema. +2 pedal pulses bilaterally. Skin: Warm and dry. Results & Data ([facility]) Vital Signs (Past 12 Hours) Vital Signs Temp Pulse Pulse Resp BP BP Pulse Ox 06/30/22 08:00 06/30/22 11:43 36.6 C 73 18 108/76 99 06/30/22 08:04 36.6 C 89 18 104/73 96 06/30/22 07:55 88 06/30/22 03:23 36.7 C 81 18 97/64 L 95 O2 Del Method 06/30/22 08:00 Room Air 06/30/22 11:43 06/30/22 08:04 Room Air 06/30/22 07:55 06/30/22 03:23 Room Air
--- NOTE | 2022-06-30 14:14 | Myocardial Perfusion Study ---
Date of Service June 30, 2022 Myocardial Perfusion Study [facility] Myocardial Perfusion Study Report Procedure: 1. Myocardial perfusion study performed in multiple views/images 2. Lexiscan pharmacologic stress ECG Indications: 1. New cardiomyopathy Ordering physician: Man Procedural details: For the stress portion of the study, Lexiscan 0.4 mg was intravenously administered followed by a saline flush. This was followed by 27.17 mCi of technetium 99m Cardiolite, injected at 0 925 on 06/30/2022. 30 minutes following the injection, imaging of the heart was performed in multiple projections. For the rest portion of the study, 9.7 mCi technetium 99m Cardiolite was injected intravenously at 0735 on 06/30/2022. 1 hour following the injection, imaging of the heart was performed in the same projections. Lexiscan stress ECG: Resting ECG demonstrated: Sinus tachycardia Maximum heart rate: 111 bpm Maximal, age-predicted heart rate: 60% Resting blood pressure: 117/80 mmHg Maximum blood pressure: 117/[address] changes: None Arrhythmia: None Symptoms: Nausea Findings: Rotating raw imaging demonstrated no significant lung uptake. There is no significant motion artifact. Heart size appeared normal. Myocardial perfusion demonstrated homogeneous tracer uptake throughout the myocardium. Ejection fraction: Visually appears to be 50-55% Wall motion: Borderline global hypokinesis No significant transient ischemic dilation. Impression: 1. Normal Lexiscan nuclear stress test with borderline global hypokinesis, EF 50 to 55%.
[2022-06-30 14:20] LABS: Glucose Pleural Fluid 106 mg/dl; LDH Pleural Fluid 167 U/L; Total Protein Pleural Fluid < 3.0 gm/dl
[2022-06-30 16:43] LABS: Lymphocytes, Fluid 20 %; Mono,Macrophage,Mesothelial 47 %; Neutrophils, Fluid 33 %
[2022-06-30] MEDS: APIXABAN 2.5 MG TAB PO SCH (21:04)
[2022-07-01] MEDS: LEVOTHYROXINE SODIUM 200 MCG TABLET PO SCH (05:38)
[2022-07-01 05:51] LABS: Hematocrit (blood only) 37.1 % (34.1-44.9); Hemoglobin 12.8 g/dl (12.0-16.0); Mean Corpuscular Hemoglobin 32.2 pg (25.0-34.0); Mean Corpuscular Hgb Conc 34.5 g/dL (32.0-36.0); Mean Corpuscular Volume 93.2 fL (80.0-100.0); Mean Platelet Volume 9.8 fL (9.4-12.3); Platelet Count 147 K/uL (130-400); RDW Coefficient of Variation 12.6 % (11.5-14.5); RDW Standard Deviation 43.4 fL (36.4-46.3); Red Blood Count 3.98 M/uL (3.93-5.22); White Blood Count 9.36 K/ul (4.8-10.8)
[2022-07-01 06:28] LABS: BUN Creatinine Ratio 25.4 (10-20); Calcium 7.7 mg/dl (8.5-10.1); Creatinine Clr Calc Pharmacy 31.2 ml/min; Est GFR (African American) 49.4 ml/min; Est GFR (Non-African American) 42.6 ml/min; Magnesium 2.5 mg/dl (1.7-2.4); Phosphorus 3.1 mg/dl (2.5-4.9); Potassium 5.2 mmol/L (3.5-5.1)
[2022-07-01] MEDS: METOPROLOL SUCC 25MG EXT REL TAB PO SCH ×2 (08:00→20:46)
--- NOTE | 2022-07-01 08:04 | Hospitalist Progress Note ---
Date of Service July 01, 2022 Assessment & Plan (1) Acute hypoxemic respiratory failure: Plan: Decompensated heart failure Present on admission with worsening SOB CXR showed interval development of pulmonary edema with small bilateral pleural effusions. CTA chest showed no pulmonary emboli identified. Moderate interstitial pulmonary edema. Multifocal airspace opacities within lungs favor alveolar pulmonary edema however pneumonia could appear similar. Covid 19, RSV and influenza are negative on admission Elevated WBC and lactic acid Procalcitonin normal received Azithromycin and ceftriaxone in the ER Continue IV cefepime cardiology consult ECHO showed normal LV chamber size and wall motion at the base levels with progressive apical ballooning pattern and akinesis with EF 20 to 25% She was weaned off the oxygen supplement Saturating well on room air Continue I/O s/p Lexiscan nuclear stress test (06/30) Nuclear stress testing was nonischemic and also showed improvement of overall LV systolic function, now low normal 50 to 55%. Cardiology office will call to arrange follow-up in 1 month with repeat echocardiogram to follow EF DC to home on current medical regimen. For Paroxysmal atrial fibrillation - continue Eliquis. Continue p.o. amiodarone at 200 mg twice daily upon discharge Pulmonary medicine consulted for pl. effusions S/p R sided thoracentesis 420 cc removed, follow pl. fluid studies likely secondary to CHF Elevated lactic acid Possible related to acute respiratory failure due to pulmonary edema vs pneumonia lactic acid on admission 3.8 then 2.5 -->0.8 WBC decreased from 22K to 9.4K Continue IV abx with Cefepime Blood cx no growth and urine cx grew multiples organisms Repeat urine culture negative Monitor CBC Elevated troponin Mostly demand ischemia due to acute respiratory failure Troponin 1790, then 1623 received Aspirin 325mg in the ER Continue Metoprolol 25mg BID and Eliquis Denies any chest pain Afib Converted to A. fib (06/27) EKG done shown PVC with A. fib Case discussed with cardiology recommend to start on amiodarone drip Amiodarone started - Continue p.o. amiodarone at 200 mg twice daily upon discharge Continued Eliquis and metoprolol Continue monitor closely in telemetry Hypothyroidism: Continue levothyroxine TSH WNL DVT prophylaxis SCD Continue Eliquis Left breast cancer S/P surgery and radiation therapy Continue Tamoxifen Code status full code Patient's : Mr. Jam Khoury, contact #[phone]. Admission and Anticipated Discharge Date Admission Date: June 25, 2022 Subjective Pt was seen and examined for follow up of acute respiratory distress Patient had nuclear stress test done yesterday and thoracentesis. Currently she feels well, denies any chest pain, shortness of breath or palpitations. Denies fevers or chills. Saturating well on RA. Plan for repeat PT/OT, CM involved in DC plan Review of Systems Review of Systems: All systems reviewed & are unremarkable except as noted in Subjective Physical Exam Physical Exam: General- acute respiratory distress Head- atraumatic Eyes- PERRL, EOMI, ENT- oropharynx clear Neck- supple, no JVD Lungs- CTAB, +diminished BS at the bases, no wheezing Heart- irregular; +murmur Abdomen- normal bowel sounds, soft, nontender Extremities- moves extremities, no significant edema noted Neuro- alert, awake, PERRL, EOMI; no facial palsy; no dysarthria Skin- warm & dry Results & Data Results & Data ([facility]) Vital Signs (Past 12 Hours) Vital Signs Temp Pulse Pulse Resp BP Pulse Ox O2 Del Method 07/01/22 07:34 36.6 C 74 18 92/58 L 96 Room Air 06/30/22 22:22 86 07/01/22 03:12 36.5 C 83 18 110/75 93 Room Air 06/30/22 23:21 36.5 C 88 18 106/71 97 Room Air 06/30/22 20:56 Room Air 06/30/22 21:02 96 H 105/73 Laboratory Results 07/01/22 07/01/22 06/30/22 Range/Units 05:39 05:39 Unknown WBC 9.36 (4.8-10.8) K/ul RBC 3.98 (3.93-5.22) M/uL Hgb 12.8 (12.0-16.0) g/dl Hct 37.1 (34.1-44.9) % MCV 93.2 (80.0-100.0) fL MCH 32.2 (25.0-34.0) pg MCHC 34.5 (32.0-36.0) g/dL RDW Std Deviation 43.4 (36.4-46.3) fL RDW Coeff of Carter 12.6 (11.5-14.5) % Plt Count 147 (130-400) K/uL MPV 9.8 (9.4-12.3) fL Sodium 138 (136-145) mmol/L Potassium 5.2 H (3.5-5.1) mmol/L Chloride 106 (98-107) mmol/L Carbon Dioxide 26 (21-32) mmol/L Anion Gap 6 (3-11) BUN 30 H (6-23) mg/dl Creatinine 1.18 (0.6-1.2) mg/dl Est Cr Clr Drug Dosing 31.2 ml/min Est GFR ( Amer) 49.4 ml/min Est GFR (Non-Af Amer) 42.6 ml/min BUN/Creatinine Ratio 25.4 H (10-20) Glucose 104 H (70-99(Fasting)) mg/dl Calcium 7.7 L (8.5-10.1) mg/dl Phosphorus 3.1 D (2.5-4.9) mg/dl Magnesium 2.5 H (1.7-2.4) mg/dl Lactate Dehydrogenase (86-244) U/L Total Protein (6.0-8.3) gm/dl Procalcitonin (0-0.5) ng/ml Fluid Neutrophils % % Fluid Lymphocytes % % Fluid Mes[place] % % Fluid Slide Review Fluid Comment Pleural Fluid Source Pleural Color Pleural Appearance Pleural pH (7.3-7.4) Pleural WBC /uL Pleural RBC /uL Pleural Total Protein < 3.0 gm/dl Pleural LDH 167 U/L Pleural Glucose 106 mg/dl 06/30/22 06/30/22 06/30/22 Range/Units Unknown Unknown 13:57 WBC (4.8-10.8) K/ul RBC (3.93-5.22) M/uL Hgb (12.0-16.0) g/dl Hct (34.1-44.9) % MCV (80.0-100.0) fL MCH (25.0-34.0) pg MCHC (32.0-36.0) g/dL RDW Std Deviation (36.4-46.3) fL RDW Coeff of Carter (11.5-14.5) % Plt Count (130-400) K/uL MPV (9.4-12.3) fL Sodium (136-145) mmol/L Potassium (3.5-5.1) mmol/L Chloride (98-107) mmol/L Carbon Dioxide (21-32) mmol/L Anion Gap (3-11) BUN (6-23) mg/dl Creatinine (0.6-1.2) mg/dl Est Cr Clr Drug Dosing ml/min Est GFR ( Amer) ml/min Est GFR (Non-Af Amer) ml/min BUN/Creatinine Ratio (10-20) Glucose (70-99(Fasting)) mg/dl Calcium (8.5-10.1) mg/dl Phosphorus (2.5-4.9) mg/dl Magnesium (1.7-2.4) mg/dl Lactate Dehydrogenase (86-244) U/L Total Protein 6.3 (6.0-8.3) gm/dl Procalcitonin (0-0.5) ng/ml Fluid Neutrophils % 33 % Fluid Lymphocytes % 20 % Fluid Meso/[place] % 47 % Fluid Slide Review Fluid Comment Pleural Fluid Source Right Lung Pleural Color Yellow Pleural Appearance Cloudy Pleural pH 7.46 H (7.3-7.4) Pleural WBC 1227 /uL Pleural RBC < 2000 /uL Pleural Total Protein gm/dl Pleural LDH U/L Pleural Glucose mg/dl 06/30/22 06/30/22 Range/Units 13:57 05:58 WBC (4.8-10.8) K/ul RBC (3.93-5.22) M/uL Hgb (12.0-16.0) g/dl Hct (34.1-44.9) % MCV (80.0-100.0) fL MCH (25.0-34.0) pg MCHC (32.0-36.0) g/dL RDW Std Deviation (36.4-46.3) fL RDW Coeff of Carter (11.5-14.5) % Plt Count (130-400) K/uL MPV (9.4-12.3) fL Sodium (136-145) mmol/L Potassium (3.5-5.1) mmol/L Chloride (98-107) mmol/L Carbon Dioxide (21-32) mmol/L Anion Gap (3-11) BUN (6-23) mg/dl Creatinine (0.6-1.2) mg/dl Est Cr Clr Drug Dosing ml/min Est GFR ( Amer) ml/min Est GFR (Non-Af Amer) ml/min BUN/Creatinine Ratio (10-20) Glucose (70-99(Fasting)) mg/dl Calcium (8.5-10.1) mg/dl Phosphorus (2.5-4.9) mg/dl Magnesium (1.7-2.4) mg/dl Lactate Dehydrogenase 191 (86-244) U/L Total Protein (6.0-8.3) gm/dl Procalcitonin 0.15 (0-0.5) ng/ml Fluid Neutrophils % % Fluid Lymphocytes % % Fluid [place] % % Fluid Slide Review Fluid Comment Pleural Fluid Source Pleural Color Pleural Appearance Pleural pH (7.3-7.4) Pleural WBC /uL Pleural RBC /uL Pleural Total Protein gm/dl Pleural LDH U/L Pleural Glucose mg/dl Medications Administered Current Inpatient Medications Acetaminophen (Acetaminophen 325 Mg Tab) 650 mg PO Q4H PRN PRN Reason: Pain or Fever Stop: 07/25/22 08:40 Amiodarone HCl (Amiodarone 200 Mg Tab) 400 mg PO BID [facility] Stop: 07/28/22 12:44 Last Admin: 06/30/22 20:59 Dose: 400 mg Apixaban (Apixaban 2.5 Mg Tab) 2.5 mg PO BID [facility] Stop: 07/25/22 20:59 Last Admin: 06/30/22 21:04 Dose: 2.5 mg Fluticasone Propionate (Fluticasone Propionate Na Spr 16 Gm Btl) 2 sprays NA QAM PRN PRN Reason: as directed Stop: 07/25/22 08:40 Furosemide (Furosemide 40 Mg/4 Ml Vial) 40 mg IV BID17 [facility] Stop: 07/25/22 14:24 Last Admin: 06/25/22 14:59 Dose: 40 mg Guaifenesin (Guaifenesin 600 Mg Tabcr) 600 mg PO Q12 FILIBERTO Stop: 07/28/22 20:59 Last Admin: 06/30/22 21:01 Dose: 600 mg Promethazine HCl 6.25 mg/ (Sodium Chloride) 50.25 mls @ 201 mls/hr IV Q6H PRN PRN Reason: Nausea And Vomiting Stop: 07/25/22 06:46 Cefepime HCl 2,000 mg/ Syringe 20 mls @ 5 mls/min IV Q12H [facility]; Protocol Stop: 07/05/22 20:59 Last Admin: 06/30/22 21:04 Dose: 5 mls/min Levothyroxine Sodium (Levothyroxine Sodium 200 Mcg Tablet) 200 mcg PO [id number]@0630 [facility] Stop: 07/25/22 08:40 Last Admin: 07/01/22 05:38 Dose: 200 mcg Levothyroxine Sodium (Levothyroxine Sodium 100 Mcg Tablet) 100 mcg PO Th@0630 [facility] Stop: 07/29/22 06:29 Last Admin: 06/29/22 06:05 Dose: 100 mcg Lisinopril (Lisinopril 10 Mg Tab) 10 mg PO QAM [facility] Stop: 07/25/22 08:59 Last Admin: 06/25/22 09:12 Dose: 10 mg Metoprolol Succinate (Metoprolol Succ 25mg Ext Rel Tab) 25 mg PO AMHS [facility] Stop: 07/25/22 08:59 Last Admin: 07/01/22 08:00 Dose: Not Given Multivitamins (Multivitamin Tab) 1 tab PO QDL [facility] Stop: 07/25/22 11:29 Last Admin: 06/30/22 10:48 Dose: 1 tab Olanzapine (Olanzapine 10 Mg/2.1 Ml Sdv) 2.5 mg IM Q4H PRN PRN Reason: Anxiety/Agitation Stop: 07/26/22 02:46 Polyethylene Glycol (Polyethylene (Miralax) 17 Gm Pack) 17 gm PO DAILY PRN PRN Reason: Constipation Stop: 07/29/22 12:35 Last Admin: 06/29/22 13:55 Dose: 17 gm Sennosides (Senna 8.6 Mg Tab) 8.6 mg PO QAM [facility] Stop: 07/29/22 12:44 Last Admin: 06/30/22 10:46 Dose: 8.6 mg Tamoxifen Citrate (Tamoxifen Citrate 10 Mg Tablet) 20 mg PO DAILY [facility] Stop: 07/25/22 08:59 Last Admin: 06/30/22 10:47 Dose: 20 mg Timolol Maleate (Timolol Maleate 0.5% Op Soln 5 Ml Btl) 1 drops OP BID [facility] Stop: 07/25/22 08:59 Last Admin: 06/30/22 21:04 Dose: 1 drops Tramadol HCl (Tramadol Hcl 50 Mg Tablet) 25 - 50 mg PO Q4H PRN PRN Reason: Pain Stop: 07/25/22 06:46 Vitamin B Complex (Vitamin B Complex Tab) 1 tab PO [facility] Stop: 07/25/22 08:59 Last Admin: 06/30/22 10:48 Dose: 1 tab
[2022-07-01] MEDS: AMIODARONE 200 MG TAB PO SCH ×2 (08:54→20:45)
[2022-07-01] MEDS: APIXABAN 2.5 MG TAB PO SCH ×2 (08:55→20:45)
[2022-07-01] MEDS: SENNA 8.6 MG TAB PO SCH (08:55)
[2022-07-01] MEDS: guaiFENesin 600 MG TABCR PO SCH ×2 (08:55→20:46)
[2022-07-01] MEDS: CEFEPIME 2,000 MG in SYRINGE 0 ML IV SCH ×2 (08:55→20:43)
[2022-07-01] MEDS: TAMOXIFEN CITRATE 10 MG TABLET PO SCH (08:55)
[2022-07-01] MEDS: VITAMIN B COMPLEX TAB PO SCH (08:55)
[2022-07-01] MEDS: TIMOLOL MALEATE 0.5% OP SOLN 5 ML BTL OP SCH ×2 (08:55→20:47)
[2022-07-01] MEDS: MULTIVITAMIN TAB PO SCH (12:33)
[2022-07-02] MEDS: LEVOTHYROXINE SODIUM 200 MCG TABLET PO SCH (05:37)
[2022-07-02 06:36] LABS: BUN Creatinine Ratio 25.6 (10-20); Calcium 7.7 mg/dl (8.5-10.1); Creatinine Clr Calc Pharmacy 40.9 ml/min; Est GFR (African American) 68.5 ml/min; Est GFR (Non-African American) 59.1 ml/min; Magnesium 2.2 mg/dl (1.7-2.4); Phosphorus 2.4 mg/dl (2.5-4.9); Potassium 4.1 mmol/L (3.5-5.1)
--- NOTE | 2022-07-02 08:28 | Hospitalist Progress Note ---
Date of Service July 02, 2022 Assessment & Plan (1) Acute hypoxemic respiratory failure: Plan: Decompensated heart failure Present on admission with worsening SOB CXR showed interval development of pulmonary edema with small bilateral pleural effusions. CTA chest showed no pulmonary emboli identified. Moderate interstitial pulmonary edema. Multifocal airspace opacities within lungs favor alveolar pulmonary edema however pneumonia could appear similar. Covid 19, RSV and influenza are negative on admission Elevated WBC and lactic acid Procalcitonin normal received Azithromycin and ceftriaxone in the ER Continue IV cefepime cardiology consult ECHO showed normal LV chamber size and wall motion at the base levels with progressive apical ballooning pattern and akinesis with EF 20 to 25% She was weaned off the oxygen supplement Saturating well on room air Continue I/O s/p Lexiscan nuclear stress test (06/30) Nuclear stress testing was nonischemic and also showed improvement of overall LV systolic function, now low normal 50 to 55%. Cardiology office will call to arrange follow-up in 1 month with repeat echocardiogram to follow EF DC to home on current medical regimen. For Paroxysmal atrial fibrillation - continue Eliquis. Continue p.o. amiodarone at 200 mg twice daily upon discharge Pulmonary medicine consulted for pl. effusions S/p R sided thoracentesis 420 cc removed, follow pl. fluid studies likely secondary to CHF Elevated lactic acid Possible related to acute respiratory failure due to pulmonary edema vs pneumonia lactic acid on admission 3.8 then 2.5 -->0.8 WBC decreased from 22K to 9.4K Continue IV abx with Cefepime Blood cx no growth and urine cx grew multiples organisms Repeat urine culture negative Monitor CBC Elevated troponin Mostly demand ischemia due to acute respiratory failure Troponin 1790, then 1623 received Aspirin 325mg in the ER Continue Metoprolol 25mg BID and Eliquis Denies any chest pain Afib Converted to A. fib (06/27) EKG done shown PVC with A. fib Case discussed with cardiology recommend to start on amiodarone drip Amiodarone started - Continue p.o. amiodarone at 200 mg twice daily upon discharge Continued Eliquis and metoprolol Continue monitor closely in telemetry Hypothyroidism: Continue levothyroxine TSH WNL DVT prophylaxis SCD Continue Eliquis Left breast cancer S/P surgery and radiation therapy Continue Tamoxifen Code status full code Patient's : Mr. Jam Khoury, contact #[phone]. Admission and Anticipated Discharge Date Admission Date: June 25, 2022 Subjective Pt was seen and examined for follow up of acute respiratory distress Patient had nuclear stress test done and thoracentesis. Currently she feels well, denies any chest pain, shortness of breath or palpitations. Denies fevers or chills. Saturating 98% on RA. CM involved in DC plan Review of Systems Review of Systems: All systems reviewed & are unremarkable except as noted in Subjective Physical Exam Physical Exam: General- elderly F sitting up in bed in NAD, breathing comfo rtably on RA Head- atraumatic Eyes- PERRL, EOMI, ENT- oropharynx clear Neck- supple, no JVD Lungs- CTAB, +diminished BS at the bases, no wheezing Heart- irregular; +murmur Abdomen- normal bowel sounds, soft, nontender Extremities- moves extremities, no significant edema noted Neuro- alert, awake, PERRL, EOMI; no facial palsy; no dysarthria Skin- warm & dry Results & Data Results & Data ([facility]) Vital Signs (Past 12 Hours) Vital Signs Temp Pulse Pulse Pulse Resp BP Pulse Ox 07/02/22 07:34 36.5 C 94 H 20 111/74 98 07/02/22 02:53 36.5 C 80 16 124/84 97 07/01/22 22:37 85 07/01/22 22:41 36.7 C 101 H 18 102/68 94 07/01/22 20:42 O2 Del Method 07/02/22 07:34 Room Air 07/02/22 02:53 Room Air 07/01/22 22:37 07/01/22 22:41 Room Air 07/01/22 20:42 Room Air Laboratory Results 07/02/22 Range/Units 05:30 Sodium 134 L (136-145) mmol/L Potassium 4.1 D (3.5-5.1) mmol/L Chloride 104 (98-107) mmol/L Carbon Dioxide 26 (21-32) mmol/L Anion Gap 4 (3-11) BUN 23 (6-23) mg/dl Creatinine 0.90 (0.6-1.2) mg/dl Est Cr Clr Drug Dosing 40.9 ml/min Est GFR ( Amer) 68.5 ml/min Est GFR (Non-Af Amer) 59.1 ml/min BUN/Creatinine Ratio 25.6 H (10-20) Glucose 93 (70-99(Fasting)) mg/dl Calcium 7.7 L (8.5-10.1) mg/dl Phosphorus 2.4 L (2.5-4.9) mg/dl Magnesium 2.2 (1.7-2.4) mg/dl Medications Administered Current Inpatient Medications Acetaminophen (Acetaminophen 325 Mg Tab) 650 mg PO Q4H PRN PRN Reason: Pain or Fever Stop: 07/25/22 08:40 Amiodarone HCl (Amiodarone 200 Mg Tab) 400 mg PO BID [facility] Stop: 07/28/22 12:44 Last Admin: 07/01/22 20:45 Dose: 400 mg Apixaban (Apixaban 2.5 Mg Tab) 2.5 mg PO BID [facility] Stop: 07/25/22 20:59 Last Admin: 07/01/22 20:45 Dose: 2.5 mg Fluticasone Propionate (Fluticasone Propionate Na Spr 16 Gm Btl) 2 sprays NA QAM PRN PRN Reason: as directed Stop: 07/25/22 08:40 Furosemide (Furosemide 40 Mg/4 Ml Vial) 40 mg IV BID17 [facility] Stop: 07/25/22 14:24 Last Admin: 06/25/22 14:59 Dose: 40 mg Guaifenesin (Guaifenesin 600 Mg Tabcr) 600 mg PO Q12 [facility] Stop: 07/28/22 20:59 Last Admin: 07/01/22 20:46 Dose: 600 mg Promethazine HCl 6.25 mg/ (Sodium Chloride) 50.25 mls @ 201 mls/hr IV Q6H PRN PRN Reason: Nausea And Vomiting Stop: 07/25/22 06:46 Cefepime HCl 2,000 mg/ Syringe 20 mls @ 5 mls/min IV Q12H [facility]; Protocol Stop: 07/05/22 20:59 Last Admin: 07/01/22 20:43 Dose: 5 mls/min Levothyroxine Sodium (Levothyroxine Sodium 200 Mcg Tablet) 200 mcg PO SuTuWeFrSa@0630 [facility] Stop: 07/25/22 08:40 Last Admin: 07/02/22 05:37 Dose: 200 mcg Levothyroxine Sodium (Levothyroxine Sodium 100 Mcg Tablet) 100 mcg PO Th@0630 [facility] Stop: 07/29/22 06:29 Last Admin: 06/29/22 06:05 Dose: 100 mcg Lisinopril (Lisinopril 10 Mg Tab) 10 mg PO QAM [facility] Stop: 07/25/22 08:59 Last Admin: 06/25/22 09:12 Dose: 10 mg Metoprolol Succinate (Metoprolol Succ 25mg Ext Rel Tab) 25 mg PO AMHS [facility] Stop: 07/25/22 08:59 Last Admin: 07/01/22 20:46 Dose: 25 mg Multivitamins (Multivitamin Tab) 1 tab PO QDL [facility] Stop: 07/25/22 11:29 Last Admin: 07/01/22 12:33 Dose: 1 tab Olanzapine (Olanzapine 10 Mg/2.1 Ml Sdv) 2.5 mg IM Q4H PRN PRN Reason: Anxiety/Agitation Stop: 07/26/22 02:46 Polyethylene Glycol (Polyethylene (Miralax) 17 Gm Pack) 17 gm PO DAILY PRN PRN Reason: Constipation Stop: 07/29/22 12:35 Last Admin: 06/29/22 13:55 Dose: 17 gm Sennosides (Senna 8.6 Mg Tab) 8.6 mg PO QAM [facility] Stop: 07/29/22 12:44 Last Admin: 07/01/22 08:55 Dose: 8.6 mg Tamoxifen Citrate (Tamoxifen Citrate 10 Mg Tablet) 20 mg PO DAILY [facility] Stop: 07/25/22 08:59 Last Admin: 07/01/22 08:55 Dose: 20 mg Timolol Maleate (Timolol Maleate 0.5% Op Soln 5 Ml Btl) 1 drops OP BID [facility] Stop: 07/25/22 08:59 Last Admin: 07/01/22 20:47 Dose: 1 drops Tramadol HCl (Tramadol Hcl 50 Mg Tablet) 25 - 50 mg PO Q4H PRN PRN Reason: Pain Stop: 07/25/22 06:46 Vitamin B Complex (Vitamin B Complex Tab) 1 tab PO QAM [facility] Stop: 07/25/22 08:59 Last Admin: 07/01/22 08:55 Dose: 1 tab
[2022-07-02] MEDS: AMIODARONE 200 MG TAB PO SCH ×2 (08:45→20:44)
[2022-07-02] MEDS: TIMOLOL MALEATE 0.5% OP SOLN 5 ML BTL OP SCH ×2 (08:46→20:47)
[2022-07-02] MEDS: TAMOXIFEN CITRATE 10 MG TABLET PO SCH (08:46)
[2022-07-02] MEDS: VITAMIN B COMPLEX TAB PO SCH (08:46)
[2022-07-02] MEDS: guaiFENesin 600 MG TABCR PO SCH ×2 (08:46→20:46)
[2022-07-02] MEDS: METOPROLOL SUCC 25MG EXT REL TAB PO SCH ×2 (08:46→20:45)
[2022-07-02] MEDS: SENNA 8.6 MG TAB PO SCH (08:46)
[2022-07-02] MEDS: CEFEPIME 2,000 MG in SYRINGE 0 ML IV SCH ×2 (08:46→20:42)
[2022-07-02] MEDS: APIXABAN 2.5 MG TAB PO SCH ×2 (08:46→20:46)
[2022-07-02] MEDS: MULTIVITAMIN TAB PO SCH (11:26)
--- NOTE | 2022-07-03 07:42 | Hospitalist Progress Note ---
Date of Service July 03, 2022 Assessment & Plan (1) Acute hypoxemic respiratory failure: Plan: Decompensated heart failure Present on admission with worsening SOB CXR showed interval development of pulmonary edema with small bilateral pleural effusions. CTA chest showed no pulmonary emboli identified. Moderate interstitial pulmonary edema. Multifocal airspace opacities within lungs favor alveolar pulmonary edema however pneumonia could appear similar. Covid 19, RSV and influenza are negative on admission Elevated WBC and lactic acid Procalcitonin normal received Azithromycin and ceftriaxone in the ER Continued IV cefepime - course finished Cardiology consulted ECHO showed normal LV chamber size and wall motion at the base levels with progressive apical ballooning pattern and akinesis with EF 20 to 25% She was weaned off the oxygen supplement Saturating well on room air Continue I/O s/p Lexiscan nuclear stress test (06/30) Nuclear stress testing was nonischemic and also showed improvement of overall LV systolic function, now low normal 50 to 55%. Cardiology office will call to arrange follow-up in 1 month with repeat echocardiogram to follow EF DC to home on current medical regimen. For Paroxysmal atrial fibrillation - continue Eliquis. Continue p.o. amiodarone at 200 mg twice daily upon discharge Pulmonary medicine consulted for pl. effusions S/p R sided thoracentesis 420 cc removed, follow pl. fluid studies likely secondary to CHF Elevated lactic acid Possible related to acute respiratory failure due to pulmonary edema vs pneumonia lactic acid on admission 3.8 then 2.5 -->0.8 WBC decreased from 22K to 9.4K Continued IV abx with Cefepime Blood cx no growth and urine cx grew multiples organisms Repeat urine culture negative Monitor CBC Elevated troponin Mostly demand ischemia due to acute respiratory failure Troponin 1790, then 1623 received Aspirin 325mg in the ER Continue Metoprolol 25mg BID and Eliquis Denies any chest pain Afib Converted to A. fib (06/27) EKG done shown PVC with A. fib Case discussed with cardiology recommend to start on amiodarone drip Amiodarone started - Continue p.o. amiodarone at 200 mg twice daily upon discharge Continued Eliquis and metoprolol Continue monitor closely in telemetry Hypothyroidism: Continue levothyroxine TSH WNL DVT prophylaxis SCD Continue Eliquis Left breast cancer S/P surgery and radiation therapy Continue Tamoxifen Code status full code Patient's : Mr. Jam Khoury, contact #[phone]. Admission and Anticipated Discharge Date Admission Date: June 25, 2022 Subjective Pt was seen and examined for follow up of acute respiratory distress Patient had nuclear stress test done and thoracentesis. Currently she feels well, denies any chest pain, shortness of breath or palpitations. Denies fevers or chills. Saturating 98% on RA. CM involved in DC plan Review of Systems Review of Systems: All systems reviewed & are unremarkable except as noted in Subjective Physical Exam Physical Exam: General- elderly F sitting up in bed in NAD, breathing comfortably on RA Head- atraumatic Eyes- PERRL, EOMI, ENT- oropharynx clear Neck- supple, no JVD Lungs- CTAB, +diminished BS at the bases, no wheezing Heart- regular; +murmur Abdomen- normal bowel sounds, soft, nontender Extremities- moves extremities, no significant edema noted Neuro- alert, awake, PERRL, EOMI; no facial palsy; no dysarthria Skin- warm & dry Results & Data Results & Data ([facility]) Vital Signs (Past 12 Hours) Vital Signs Temp Pulse Pulse Resp BP Pulse Ox O2 Del Method 07/03/22 06:59 91 H 07/03/22 03:07 36.4 C L 91 H 18 105/70 96 Room Air 07/02/22 22:05 95 H 07/02/22 23:53 36.6 C 94 H 18 98/62 L 96 Room Air 07/02/22 20:23 Room Air 07/02/22 20:45 95 H 112/73 07/02/22 19:42 36.5 C 96 H 16 104/72 96 Room Air Medications Administered Current Inpatient Medications Acetaminophen (Acetaminophen 325 Mg Tab) 650 mg PO Q4H PRN PRN Reason: Pain or Fever Stop: 07/25/22 08:40 Amiodarone HCl (Amiodarone 200 Mg Tab) 400 mg PO BID [facility] Stop: 07/28/22 12:44 Last Admin: 07/02/22 20:44 Dose: 400 mg Apixaban (Apixaban 2.5 Mg Tab) 2.5 mg PO BID [facility] Stop: 07/25/22 20:59 Last Admin: 07/02/22 20:46 Dose: 2.5 mg Fluticasone Propionate (Fluticasone Propionate Na Spr 16 Gm Btl) 2 sprays NA QAM PRN PRN Reason: as directed Stop: 07/25/22 08:40 Furosemide (Furosemide 40 Mg/4 Ml Vial) 40 mg IV BID17 [facility] Stop: 07/25/22 14:24 Last Admin: 06/25/22 14:59 Dose: 40 mg Guaifenesin (Guaifenesin 600 Mg Tabcr) 600 mg PO Q12 [facility] Stop: 07/28/22 20:59 Last Admin: 07/02/22 20:46 Dose: 600 mg Promethazine HCl 6.25 mg/ (Sodium Chloride) 50.25 mls @ 201 mls/hr IV Q6H PRN PRN Reason: Nausea And Vomiting Stop: 07/25/22 06:46 Cefepime HCl 2,000 mg/ Syringe 20 mls @ 5 mls/min IV Q12H [facility]; Protocol Stop: 07/05/22 20:59 Last Admin: 07/02/22 20:42 Dose: 5 mls/min Levothyroxine Sodium (Levothyroxine Sodium 200 Mcg Tablet) 200 mcg PO SuTuWeFrSa@0630 [facility] Stop: 07/25/22 08:40 Last Admin: 07/02/22 05:37 Dose: 200 mcg Levothyroxine Sodium (Levothyroxine Sodium 100 Mcg Tablet) 100 mcg PO Th@0630 [facility] Stop: 07/29/22 06:29 Last Admin: 06/29/22 06:05 Dose: 100 mcg Lisinopril (Lisinopril 10 Mg Tab) 10 mg PO QAM [facility] Stop: 07/25/22 08:59 Last Admin: 06/25/22 09:12 Dose: 10 mg Metoprolol Succinate (Metoprolol Succ 25mg Ext Rel Tab) 25 mg PO AMHS [facility] Stop: 07/25/22 08:59 Last Admin: 07/02/22 20:45 Dose: 25 mg Multivitamins (Multivitamin Tab) 1 tab PO QDL [facility] Stop: 07/25/22 11:29 Last Admin: 07/02/22 11:26 Dose: 1 tab Olanzapine (Olanzapine 10 Mg/2.1 Ml Sdv) 2.5 mg IM Q4H PRN PRN Reason: Anxiety/Agitation Stop: 07/26/22 02:46 Polyethylene Glycol (Polyethylene (Miralax) 17 Gm Pack) 17 gm PO DAILY PRN PRN Reason: Constipation Stop: 07/29/22 12:35 Last Admin: 06/29/22 13:55 Dose: 17 gm Sennosides (Senna 8.6 Mg Tab) 8.6 mg PO QAM [facility] Stop: 07/29/22 12:44 Last Admin: 07/02/22 08:46 Dose: 8.6 mg Tamoxifen Citrate (Tamoxifen Citrate 10 Mg Tablet) 20 mg PO DAILY [facility] Stop: 07/25/22 08:59 Last Admin: 07/02/22 08:46 Dose: 20 mg Timolol Maleate (Timolol Maleate 0.5% Op Soln 5 Ml Btl) 1 drops OP BID [facility] Stop: 07/25/22 08:59 Last Admin: 07/02/22 20:47 Dose: 1 drops Tramadol HCl (Tramadol Hcl 50 Mg Tablet) 25 - 50 mg PO Q4H PRN PRN Reason: Pain Stop: 07/25/22 06:46 Vitamin B Complex (Vitamin B Complex Tab) 1 tab PO QAM [facility] Stop: 07/25/22 08:59 Last Admin: 07/02/22 08:46 Dose: 1 tab
[2022-07-03] MEDS: TAMOXIFEN CITRATE 10 MG TABLET PO SCH (08:45)
[2022-07-03] MEDS: VITAMIN B COMPLEX TAB PO SCH (08:45)
[2022-07-03] MEDS: guaiFENesin 600 MG TABCR PO SCH ×2 (08:45→20:55)
[2022-07-03] MEDS: METOPROLOL SUCC 25MG EXT REL TAB PO SCH ×2 (08:45→20:55)
[2022-07-03] MEDS: SENNA 8.6 MG TAB PO SCH (08:45)
[2022-07-03] MEDS: APIXABAN 2.5 MG TAB PO SCH ×2 (08:46→20:53)
[2022-07-03] MEDS: AMIODARONE 200 MG TAB PO SCH ×2 (08:46→20:52)
[2022-07-03] MEDS: TIMOLOL MALEATE 0.5% OP SOLN 5 ML BTL OP SCH ×2 (08:47→20:54)
[2022-07-03] MEDS: CEFEPIME 2,000 MG in SYRINGE 0 ML IV SCH (08:48)
[2022-07-03] MEDS: MULTIVITAMIN TAB PO SCH (11:26)
[2022-07-04] MEDS: LEVOTHYROXINE SODIUM 200 MCG TABLET PO SCH (04:58)
[2022-07-04 06:57] LABS: Creatinine Clr Calc Pharmacy 37.9 ml/min; Est GFR (African American) 62.6 ml/min
[2022-07-04] MEDS: APIXABAN 2.5 MG TAB PO SCH (07:46)
[2022-07-04] MEDS: SENNA 8.6 MG TAB PO SCH (07:46)
[2022-07-04] MEDS: VITAMIN B COMPLEX TAB PO SCH (07:47)
[2022-07-04] MEDS: guaiFENesin 600 MG TABCR PO SCH (07:47)
[2022-07-04] MEDS: AMIODARONE 200 MG TAB PO SCH (07:47)
[2022-07-04] MEDS: TIMOLOL MALEATE 0.5% OP SOLN 5 ML BTL OP SCH (07:48)
[2022-07-04] MEDS: TAMOXIFEN CITRATE 10 MG TABLET PO SCH (07:48)
[2022-07-04] MEDS: METOPROLOL SUCC 25MG EXT REL TAB PO SCH (07:48)
--- NOTE | 2022-07-04 09:00 | Hospitalist Progress Note ---
Date of Service July 04, 2022 Assessment & Plan (1) Acute hypoxemic respiratory failure: Plan: Sepsis Decompensated heart failure Present on admission with worsening SOB CXR showed interval development of pulmonary edema with small bilateral pleural effusions. CTA chest showed no pulmonary emboli identified. Moderate interstitial pulmonary edema. Multifocal airspace opacities within lungs favor alveolar pulmonary edema however pneumonia could appear similar. Covid 19, RSV and influenza are negative on admission Elevated WBC and lactic acid Procalcitonin normal received Azithromycin and ceftriaxone in the ER Continued IV cefepime - course finished Cardiology consulted ECHO showed normal LV chamber size and wall motion at the base levels with progressive apical ballooning pattern and akinesis with EF 20 to 25% She was weaned off the oxygen supplement Saturating well on room air Continue I/O s/p Lexiscan nuclear stress test (06/30) Nuclear stress testing was nonischemic and also showed improvement of overall LV systolic function, now low normal 50 to 55%. Cardiology office will call to arrange follow-up in 1 month with repeat echocardiogram to follow EF DC to home on current medical regimen. For Paroxysmal atrial fibrillation - continue Eliquis. Continue p.o. amiodarone at 200 mg twice daily upon discharge Pulmonary medicine consulted for pl. effusions S/p R sided thoracentesis 420 cc removed, follow pl. fluid studies likely secondary to CHF Elevated lactic acid Possible related to acute respiratory failure due to pulmonary edema vs pneumonia lactic acid on admission 3.8 then 2.5 -->0.8 WBC decreased from 22K to 9.4K Continued IV abx with Cefepime Blood cx no growth and urine cx grew multiples organisms Repeat urine culture negative Monitor CBC Elevated troponin Mostly demand ischemia due to acute respiratory failure Troponin 1790, then 1623 received Aspirin 325mg in the ER Continue Metoprolol 25mg BID and Eliquis Denies any chest pain Afib Converted to A. fib (06/27) EKG done shown PVC with A. fib Case discussed with cardiology recommend to start on amiodarone drip Amiodarone started - Continue p.o. amiodarone at 200 mg twice daily upon discharge Continued Eliquis and metoprolol Continue monitor closely in telemetry Hypothyroidism: Continue levothyroxine TSH WNL DVT prophylaxis SCD Continue Eliquis Left breast cancer S/P surgery and radiation therapy Continue Tamoxifen Code status full code Patient's : Mr. Jam Khoury, contact #[phone]. Admission and Anticipated Discharge Date Admission Date: June 25, 2022 Subjective Pt was seen and examined for follow up of acute respiratory distress Patient had nuclear stress test done and thoracentesis. Currently she feels well, denies any chest pain, shortness of breath or palpitations. Denies fevers or chills. Saturating 96% on RA. CM involved in DC plan Review of Systems Review of Systems: All systems reviewed & are unremarkable except as noted in Subjective Physical Exam Physical Exam: General- elderly F sitting up in bed in NAD, breathing comfortably on RA Head- atraumatic Eyes- PERRL, EOMI, ENT- oropharynx clear Neck- supple, no JVD Lungs- CTAB, +diminished BS at the bases, no wheezing Heart- regular; +murmur Abdomen- normal bowel sounds, soft, nontender Extremities- moves extremities, no significant edema noted Neuro- alert, awake, PERRL, EOMI; no facial palsy; no dysarthria Skin- warm & dry Results & Data Results & Data ([facility]) Vital Signs (Past 12 Hours) Vital Signs Temp Pulse Pulse Resp BP Pulse Ox O2 Del Method 07/04/22 07:22 36.7 C 87 18 109/74 96 Room Air 07/04/22 02:21 36.9 C 88 16 108/73 96 Room Air 07/03/22 23:10 36.7 C 91 H 18 124/69 97 Room Air 07/03/22 23:05 90 07/03/22 22:05 Room Air Laboratory Results 07/04/22 07/03/22 Range/Units 05:38 13:54 Creatinine 0.97 (0.6-1.2) mg/dl Est Cr Clr Drug Dosing 37.9 ml/min Est GFR ( Amer) 62.6 ml/min Est GFR (Non-Af Amer) 54.0 ml/min SARS-CoV-2, RNA, NAAT NEGATIVE (NEGATIVE) Medications Administered Current Inpatient Medications Acetaminophen (Acetaminophen 325 Mg Tab) 650 mg PO Q4H PRN PRN Reason: Pain or Fever Stop: 07/25/22 08:40 Amiodarone HCl (Amiodarone 200 Mg Tab) 400 mg PO BID [facility] Stop: 07/28/22 12:44 Last Admin: 07/04/22 07:47 Dose: 400 mg Apixaban (Apixaban 2.5 Mg Tab) 2.5 mg PO BID [facility] Stop: 07/25/22 20:59 Last Admin: 07/04/22 07:46 Dose: 2.5 mg Fluticasone Propionate (Fluticasone Propionate Na Spr 16 Gm Btl) 2 sprays NA QAM PRN PRN Reason: as directed Stop: 07/25/22 08:40 Furosemide (Furosemide 40 Mg/4 Ml Vial) 40 mg IV BID17 [facility] Stop: 07/25/22 14:24 Last Admin: 06/25/22 14:59 Dose: 40 mg Guaifenesin (Guaifenesin 600 Mg Tabcr) 600 mg PO Q12 [facility] Stop: 07/28/22 20:59 Last Admin: 07/04/22 07:47 Dose: 600 mg Promethazine HCl 6.25 mg/ (Sodium Chloride) 50.25 mls @ 201 mls/hr IV Q6H PRN PRN Reason: Nausea And Vomiting Stop: 07/25/22 06:46 Levothyroxine Sodium (Levothyroxine Sodium 200 Mcg Tablet) 200 mcg PO SuTuWeFrSa@0630 [facility] Stop: 07/25/22 08:40 Last Admin: 07/04/22 04:58 Dose: 200 mcg Levothyroxine Sodium (Levothyroxine Sodium 100 Mcg Tablet) 100 mcg PO Th@0630 [facility] Stop: 07/29/22 06:29 Last Admin: 06/29/22 06:05 Dose: 100 mcg Lisinopril (Lisinopril 10 Mg Tab) 10 mg PO QAM [facility] Stop: 07/25/22 08:59 Last Admin: 06/25/22 09:12 Dose: 10 mg Metoprolol Succinate (Metoprolol Succ 25mg Ext Rel Tab) 25 mg PO AMHS [facility] Stop: 07/25/22 08:59 Last Admin: 07/04/22 07:48 Dose: 25 mg Multivitamins (Multivitamin Tab) 1 tab PO QDL [facility] Stop: 07/25/22 11:29 Last Admin: 07/03/22 11:26 Dose: 1 tab Olanzapine (Olanzapine 10 Mg/2.1 Ml Sdv) 2.5 mg IM Q4H PRN PRN Reason: Anxiety/Agitation Stop: 07/26/22 02:46 Polyethylene Glycol (Polyethylene (Miralax) 17 Gm Pack) 17 gm PO DAILY PRN PRN Reason: Constipation Stop: 07/29/22 12:35 Last Admin: 06/29/22 13:55 Dose: 17 gm Sennosides (Senna 8.6 Mg Tab) 8.6 mg PO QAM [facility] Stop: 07/29/22 12:44 Last Admin: 07/04/22 07:46 Dose: 8.6 mg Tamoxifen Citrate (Tamoxifen Citrate 10 Mg Tablet) 20 mg PO DAILY [facility] Stop: 07/25/22 08:59 Last Admin: 07/04/22 07:48 Dose: 20 mg Timolol Maleate (Timolol Maleate 0.5% Op Soln 5 Ml Btl) 1 drops OP BID [facility] Stop: 07/25/22 08:59 Last Admin: 07/04/22 07:48 Dose: 1 drops Tramadol HCl (Tramadol Hcl 50 Mg Tablet) 25 - 50 mg PO Q4H PRN PRN Reason: Pain Stop: 07/25/22 06:46 Vitamin B Complex (Vitamin B Complex Tab) 1 tab PO QAM [facility] Stop: 07/25/22 08:59 Last Admin: 07/04/22 07:47 Dose: 1 tab
--- NOTE | 2022-07-04 09:50 | Discharge Summary ---
Date of Service July 04, 2022 Admission HPI Per Admitting Provider History obtained from patient, family, and records. Medical history significant for chronic diastolic heart failure (EF 50%, TTE 2021), A. fib on Eliquis, PVD, valvular heart disease (moderate to severe TR, mild MR/AR ), hypertension, hyperlipidemia, hypothyroidism, left breast cancer status post surgery, radiation on tamoxifen Rx, pulmonary nodules as per records. Last confinement January 2020 for A. fib with RVR and Lyme disease status post doxycycline Rx. Last ER visit April 2022 for hot flashes and sweating attributed to UTI. Patient incidentally took 's energy medication prior to illness. Yesterday morning, patient took 's energy medication for the second time. Later in the afternoon, patient felt sick. Achy central abdominal discomfort going to the chest with dysuria, chills. Shortness of breath without cough symptoms. Denies fluid retention. Subsequent bilious emesis without diarrhea. No chest pain. No headache. Patient admits to missing Eliquis doses from time to time. Patient completed COVID-19 vaccination. Patient brought by to the ER. NSS bolus, IV ceftriaxone given for possible sepsis. Patient later noted by ED RN to have crackly lung sounds. O2 sats 92 on 3 L. 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 Admission Exam Per Admitting Provider GENERAL: uncomfortable, frail, looks younger for stated age, no respiratory distress SKIN: Normal color, warm HEENT: [place] palpebral conjunctivae, no ptosis, dry buccal mucosa, nasal cannula in place NECK : Supple, no tenderness CHEST : Decreased breath sounds, no tenderness HEART : RRR, systolic murmur ABDOMEN: Some distention, epigastric tenderness EXTREMITIES : Minimal LE swelling, no LE tenderness, no other conspicuous deformities noted NEUROLOGIC : Coherent, no facial asymmetry, no other gross focality Principal Diagnosis Acute hypoxic respiratory failure Sepsis Decompensated heart failure paroxysmal Atrial fibrillation Bilateral pleural effusion Elevated troponin Pneumonia Discharge Exam General- elderly F sitting up in bed in NAD, breathing comfortably on RA Head- atraumatic Eyes- PERRL, EOMI, ENT- oropharynx clear Neck- supple, no JVD Lungs- CTAB, +diminished BS at the bases, no wheezing Heart- regular; +murmur Abdomen- normal bowel sounds, soft, nontender Extremities- moves extremities, no significant edema noted Neuro- alert, awake, PERRL, EOMI; no facial palsy; no dysarthria Skin- warm & dry Discharge Data Allergies Allergy/AdvReac Type Severity Reaction Status Date / Time alendronate sodium Allergy Intermediate RASH Verified 06/25/22 06:24 Consultations 06/25/22 09:26 Consult Cardiology Routine 06/28/22 12:46 Consult Pulmonology Routine Ordered Studies 06/25/22 06:41 CT Abd and Pelvis [CT abd pelvis IV con only] Stat FINDINGS: Please note that the chest CT will be reported separately. Exam is mildly compromised by motion artifact. Note is made of cardiomegaly with small to moderate right and small left pleural effusions. No pneumatosis, free air or portal venous gas is present. There is a 1.8 cm lateral segment hepatic cyst. There is no biliary ductal dilatation status post cholecystectomy. Subcentimeter cystic lesion within the uncinate process remains unchanged. Spleen and adrenal glands are unremarkable. There are striated bilateral nephrograms, more pronounced on the left. Moderate left and mild right renal cortical thinning is present. There is no renal abscess. There is no evidence for a bowel obstruction. Ventral hernia repair with mesh is noted. The endometrium appears thickened, measuring approximately 1.8 cm in thickness. Caliber and wall thickness of small and large bowel are normal. There is no ascites or lymphadenopathy. No acute fracture or suspicious lesion within the visualized skeletal structures is present. IMPRESSION: 1. Striated bilateral nephrograms. This may reflect bilateral pyelonephritis. However, the appearance is nonspecific and other etiologies such as glomerulonephritis or renal infarcts are also within the differential. No renal abscess. No hydronephrosis. 2. No bowel obstruction. No bowel wall thickening. 3. Apparent endometrial thickening. Correlation with history of postmenopausal bleeding and nonemergent pelvic ultrasound is recommended. 4. Small to moderate right and small left pleural effusions with cardiomegaly and interstitial pulmonary edema. CT angio chest PE protocol Stat FINDINGS: No pulmonary emboli are identified. There is mild dilatation of the central pulmonary arteries. Moderate cardiomegaly is noted. There is no pericardial effusion. Small to moderate right and small left pleural effusions are present. There is no pneumothorax. Lungs are suboptimally assessed due to respiratory motion. Moderate interstitial pulmonary edema is noted with interlobular septal thickening. Multifocal airspace opacities within the lungs are also present. Bronchial wall thickening may be related to pulmonary edema. Abdomen and pelvis CT will be reported separately. IMPRESSION: 1. No pulmonary emboli identified. 2. Moderate interstitial pulmonary edema. Multifocal airspace opacities within lungs favor alveolar pulmonary edema however pneumonia could appear similar. 3. Small to moderate right and small left pleural effusions. 06/30/22 11:57 US point of care ultrasound Urgent Hospital Course (1) Acute hypoxemic respiratory failure: Sepsis Decompensated heart failure Present on admission with worsening SOB CXR showed interval development of pulmonary edema with small bilateral pleural effusions. CTA chest showed no pulmonary emboli identified. Moderate interstitial pulmonary edema. Multifocal airspace opacities within lungs favor alveolar pulmonary edema however pneumonia could appear similar. Covid 19, RSV and influenza are negative on admission Elevated WBC and lactic acid Procalcitonin normal received Azithromycin and ceftriaxone in the ER Continued IV cefepime - course finished Cardiology consulted ECHO showed normal LV chamber size and wall motion at the base levels with progressive apical ballooning pattern and akinesis with EF 20 to 25% She was weaned off the oxygen supplement Saturating well on room air Continue I/O s/p Lexiscan nuclear stress test (06/30) Nuclear stress testing was nonischemic and also showed improvement of overall LV systolic function, now low normal 50 to 55%. Cardiology office will call to arrange follow-up in 1 month with repeat echocardiogram to follow EF DC to home on current medical regimen. For Paroxysmal atrial fibrillation - continue Eliquis. Continue p.o. amiodarone at 200 mg twice daily upon discharge Pulmonary medicine consulted for pl. effusions S/p R sided thoracentesis 420 cc removed, follow pl. fluid studies likely secondary to CHF Elevated lactic acid Possible related to acute respiratory failure due to pulmonary edema vs pneumonia lactic acid on admission 3.8 then 2.5 -->0.8 WBC decreased from 22K to 9.4K Continued IV abx with Cefepime Blood cx no growth and urine cx grew multiples organisms Repeat urine culture negative Monitor CBC Elevated troponin Mostly demand ischemia due to acute respiratory failure Troponin 1790, then 1623 received Aspirin 325mg in the ER Continue Metoprolol 25mg BID and Eliquis Denies any chest pain Afib Converted to A. fib (06/27) EKG done shown PVC with A. fib Case discussed with cardiology recommend to start on amiodarone drip Amiodarone started - Continue p.o. amiodarone at 200 mg twice daily upon discharge Continued Eliquis and metoprolol Continue monitor closely in telemetry Hypothyroidism: Continue levothyroxine TSH WNL Left breast cancer S/P surgery and radiation therapy Continue Tamoxifen Endometrial thickening on CT scan - Correlation with history of postmenopausal bleeding and nonemergent pelvic ultrasound is recommended -follow up as outpt Striated bilateral nephrograms on CT scan - This may reflect bilateral pyelonephritis. However, the appearance is nonspecific and other etiologies such as glomerulonephritis or renal infarcts are also within the differential. No renal abscess. No hydronephrosis. - pt was treated with cefepime for leukocytosis and likely pneumonia -pt did not have urinary symptoms -follow up as outpt Code status full code Patient's : Mr. Jam Khoury, contact #[phone]. Total Time Total Time Spent Total Time Spent (In Minutes): 40 Discharge Plan Discharge Items Patient Disposition: Transfer Senior Living Fac Reason For Visit: SEPSIS, TROP ELEV Discharge Diagnosis: Acute hypoxic respiratory failure Sepsis Decompensated heart failure paroxysmal Atrial fibrillation Bilateral pleural effusion Elevated troponin Pneumonia Activity: As commented below Non-emergency contact: Primary Care Provider and Label Designer Call non-emergency contact if: you have any medication questions and your symptoms worsen Follow-up/Referrals: Bijan Barakat MD [Primary Care Provider] - (Date & Time 07/10/2022 11:00 AM Provider Bijan Barakat III, MD Department [facility] ) Diet: Heart Healthy Add Attending Provider Instructions: Follow-up with your primary care doctor, the appointment was scheduled for you for July 10. You were started on a new medication, amiodarone 200 mg twice a day. Continue taking Eliquis as prescribed. Also continue taking metoprolol. Stop taking lisinopril, spironolactone, and hydrochlorothiazide. Instead, take furosemide 20 mg daily on as-needed basis, for weight gain or edema. If your weight is increased by 3 to 5 pounds overnight or by more than 5 pounds in a week, make sure that you notify your healthcare provider. Addtl Conservation Science Officer Provider Instructions: Call your Primary Care doctor if any of the following symptoms or problems start or get worse: * Shortness of breath or difficulty breathing * Wake up at night short of breath * Chest pain * Cough * Swelling of your hands, feet, or legs * More fatigued or tired with your normal activity * Palpitations - sudden fast heart beats WEIGHT * Weigh yourself every morning after using the bathroom. * Use the same scale. * Wear the same amount of clothing. * Write your weight down on a chart. * Call your Primary Care doctor if you gain more than 2-3 pounds in 1-2 days. MEDICATIONS * Use this discharge instruction sheet for medication instructions. * Take your medications at the time your doctor ordered. * Do not skip a dose of your medicines. * If you miss a dose of medicine, take it as soon as possible, but DO NOT DOUBLE A DOSE. * Read your medicine information when you get home. * Know all of the side effects of your medicine. If in doubt, ask your pharmacist * Call your Primary Care doctor's office if you have any side effects. * Be sure all of your doctors know what medicine and herbs you take (including cold, flu, and herbal medicine). Take the following with you to your follow-up doctor appointments: * Weight Chart * Medication List * List of questions Do not drink excessive alcohol, beer or wine. Pending Studies at Discharge: No Stand-Alone Forms: [facility] Skilled Items Patient informed of condition?: Yes DNR: No Discharge Level of Care: Skilled Communicable Disease: No Discharge Prognosis: Stable Lines: None Urinary Catheter: No Medications and DC Order Prescriptions: New amiodarone 200 mg tablet 200 mg PO BID 30 Days Qty: 60 0RF furosemide 20 mg tablet 20 mg PO DAILY PRN (Reason: edema or weigh gain) 14 Days Qty: 14 0RF guaifenesin [Mucinex] 600 mg Tablet Extended Release 12hr 600 mg PO Q12 3 Days Qty: 6 0RF Continued tamoxifen 20 mg tablet 20 mg PO DAILY levothyroxine 200 mcg tablet See Rx Instructions .ROUTE .COMPLEX Rx Instructions: take 1 tablet orally 5 days per week, take 1/2 tablet on ,skip any thyroid meds on mondays multivitamin Tablet 1 tab PO QDL ketoconazole 2 % cream 1 applic TOPICAL HS Rx Instructions: apply to face fluticasone propionate [Flonase Allergy Relief] 50 mcg/actuation [place],Suspension 2 spray INTRANASAL QAM PRN (Reason: as directed) ascorbic acid (vitamin C) [Vitamin C] 1,000 mg Tablet 1,000 mg PO QAM vitamin B complex Tablet 1 tab PO QAM cholecalciferol (vitamin D3) [Vitamin D3] 25 mcg (1,000 unit) Tablet 25 mcg PO QAM Eliquis 2.5 mg Tablet 2.5 mg PO BID Qty: 60 0RF metoprolol succinate 25 mg tablet extended release 24 hr 25 mg PO AMHS estradiol 0.01 % (0.1 mg/gram) cream 1 applic VAGINAL 3XWK ketoconazole 2 % Shampoo 1 ea TOPICAL 3XWK Rx Instructions: apply to scalp when washing hair up to 3 times per week timolol maleate 0.5 % drops 1 drp OPR BID calcium carbonate [Calcium 600] 600 mg calcium (1,500 mg) Tablet 600 mg PO TIDM Saccharomyces boulardii [Florastor] 250 mg capsule 250 mg PO BID Qty: 20 0RF Rx Instructions: swallow whole triamcinolone acetonide 0.1 % Ointment 0.1 applic topical 2XWK tacrolimus 0.03 % Ointment 1 applic TOPICAL BID Discontinued hydrochlorothiazide 25 mg tablet 12.5 mg PO .MON/WED/FRI lisinopril 10 mg tablet 10 mg PO QAM spironolactone 25 mg tablet 12.5 mg PO DAILY magnesium oxide 400 mg magnesium Capsule 400 mg PO QAM potassium chloride 20 mEq Packet 20 meq PO DAILY Discharge Orders: Discharge Order (Routine); Ordered 07/04/22 Ordered By: Cayetano Jason Admission Data Admit Date/Time: 06/25/22 06:44 Attending Provider: Cayetano Jason Admit Provider: Jorge Gutiérrez Primary Care Provider: Bijan Barakat Other Providers: Carlo Conway ; Elias Castellon ; Tray Valdez ; Kelton Martinez Martha ; Jonelle Oliver [facility] ; [facility]
[2022-07-04 12:25] VITALS: BP 105/72; PULSE 79; TEMP 97.9; O2SAT 95
== END 2022-07-04 12:44 | DRG 871 ==
LOC: ED 03:29 → SUATTDRO 06:44 → 2S 06:44